=== PATIENT | female | born 1975 | race Caucasian/White ===

== ENCOUNTER 2019-07-02 10:34 | Outpatient (CLI) | payer OTHER, SELFPAY ==
--- NOTE | 2019-07-02 10:41 | XR_ITS ---
WS: [id number] Left knee, 2 views, 07/02/2019 Clinical Data: OBESITY/KNEE PAIN Comparison: None. Findings: No fractures or dislocations are seen. The joint spaces are normal. The patella is intact. The soft t issues are unremarkable. There is a posterior superior spur of the patella XR/XR knee LT 1-2V 14932 Impression: Moderate osteoarthritis of the posterior patella.
== END 2019-07-02 10:35 | disposition home or self-care (01) ==
LOC: RAD 10:36
PROVIDERS: Family Provider Nurse Practitioner; PCP Nurse Practitioner; Visit Provider Dermatology Procedural Dermatology
DX: Z02.71 Encounter for disability determination (principal); M25.562 Pain in left knee; M17.12 Unilateral primary osteoarthritis, left knee; J44.9 Chronic obstructive pulmonary disease, unspecified; E11.9 Type 2 diabetes mellitus without complications; I10 Essential (primary) hypertension; E66.01 Morbid (severe) obesity due to excess calories
CPT/HCPCS: 73560; 94060; J7611

== ENCOUNTER 2019-10-05 10:27 | Emergency (ER) | payer MEDICAID, SELFPAY ==
[2019-10-05 10:45] VITALS: BP 144/100; PULSE 78; RESP 22; RESP 26; O2SAT 97; O2SAT 98; BMI 55.4
--- NOTE | 2019-10-05 10:52 | XR_ITS ---
WS: [id number] XR chest 1V portable [id number] REASON FOR EXAM: dyspnea/cough FINDINGS: The cardiac silhouette is not enlarged. The lung barnett show chronic interstitial reaction similar to previous exam of June 13, 2018. No definite pneumonia, pleural effusion, pulmonary edema, or pneumothorax. The hilum and apices are normal. No osseous abnormalities. There is scattered granulomas throughout both lung barnett but these have not changed. XR/XR chest 1V portable [id number] IMPRESSION: Interstitial reaction both lung barnett no acute findings.
--- NOTE | 2019-10-05 10:54 | ED_ITS ---
HPI - SOB/Dyspnea General: Chief Complaint: Shortness of Breath/Dyspnea Stated Complaint: SOB Time Seen by Provider: 10/05/19 10:42 History of Present Illness: HPI Narrative: 3-year-old female comes to clinic shortness of breath last 3 to 4 days she had a subjective fever she is laying down makes it worse and exertion makes it worse. She has a semi-productive cough which is chronic for her. She usually on 3 L/min by nasal cannula supposed to be on 24 hours a day but she tells me she only uses it at night she has continued to do so she is been using her nebulizers at home pretty much every 4 hours whenever she is awake usually she is on once or twice a day at most. She client states she has continued nausea that is been an ongoing weir for her she has no vomiting or diarrhea. MD elicited complaint: shortness of breath Pertinent past history: asthma and congestive heart failure Onset (ago): day(s) Exacerbating factors: exertion and movement Relieving factors: oxygen and rest Associated symptoms: Reports no associated symptoms; Deny abdominal pain, chest pain, fever(s), nausea, orthopnea or vomiting Treatment prior to arrival: oxygen Review of Systems Const: Denies: fever(s), chills, body aches, change in appetite, fatigue or malaise ENMT: Denies: throat pain, ear or mastoid pain, nasal discharge or nasal congestion Card: Denies: chest pain, edema, dyspnea on exertion or orthopnea Resp: Denies: dyspnea, productive cough or non-productive cough GI: Denies: abdominal pain, nausea, vomiting, hematemesis, coffee ground emesis, diarrhea, constipation, bloating, hematochezia or melena : Denies: flank pain, difficulty voiding, dysuria, urinary frequency or urinary urgency Skin/Breast: Denies: rash or pruritus PFS ED PFSH: Social History (Updated 05/07/19 @ 07:48 by Poornima Arciniega MA) Smoking and tobacco status: current every day smoker Physical Exam Const: COMMON NORMALS: no acute distress GENERAL APPEARANCE: cooperative and comfortable ORIENTATION/CONSCIOUSNESS: Yes awake, Yes oriented to person, Yes oriented to place and Yes oriented to time HENMT: COMMON NORMALS: normocephalic, atraumatic, hearing grossly normal bilaterally, external ears normal, EAC's normal, TM's normal bilaterally, Normal nasal mucous membranes and turbinates present, moist oral mucous membranes and oropharynx normal HEAD & SCALP: normocephalic and atraumatic NOSE: Normal nasal mucous membranes and turbinates present EXTERNAL EAR: Yes external ears normal EXTERNAL AUDITORY CANAL: EAC's normal TYMPANIC MEMBRANE: TM's normal bilaterally Eye: COMMON NORMALS: Equal, round and reactive pupils present, EOMs intact bilaterally, conjunctivae normal and no scleral icterus CONJUNCTIVA: Yes conjunctivae normal PUPIL: Yes Equal, round and reactive pupils present Neck/C-Spine: COMMON NORMALS: full ROM, no lymphadenopathy, supple and no JVD Lymph: LYMPHATIC: no lymphadenopathy noted and no lymphedema noted Resp: COMMON NORMALS: normal respiratory effort, No retractions and No use of accessory muscles AUSCULTATION: wheezes expiratory wheezes and lower bilaterally Cardio: COMMON NORMALS: no JVD, regular rate, regular rhythm and No murmurs present (Cardio) RATE: regular rate RHYTHM: regular rhythm GI: COMMON NORMALS: Soft to palpation and No hepatosplenomegaly present AUSCULTATION: Yes normoactive bowel sounds PALPATION: Yes Soft to palpation, No Tenderness to palpation present (GI), No Guarding due to palpation present (GI) and Yes No hepatosplenomegaly present Extremity: COMMON NORMALS: normal to inspection, capillary refill normal, no clubbing, cyanosis or edema, no calf tenderness and no pedal edema Neuro: SENSORIUM/ORIENTATION: Yes oriented to person, Yes oriented to place and Yes oriented to time Skin: COMMON NORMALS: no rashes or lesions noted GENERAL SKIN EXAM: no rashes or lesions noted Course Vital Signs: Vital signs: Vital Signs Pulse Rate 79 10/05/19 12:15 Respiratory Rate 18 10/05/19 12:15 Blood Pressure 129/79 10/05/19 12:15 Pulse Oximetry 96 10/05/19 12:15 MDM - SOB/Dyspnea MDM Narrative: Medical decision making narrative: Findings with the patient she is improved after the nebulizer will discharge home Medrol Dosepak start Singulair and albuterol inhaler recheck if worsens or changes Lab Data: Labs: Lab Results 10/05/19 10/05/19 10/05/19 Range/Units 10:45 11:07 11:08 WBC 15.3 H (4.0-10.0) 10^3/ uL RBC 5.14 (4.1-5.3) 10^6/u L Hgb 13.3 (11.5-15.3) g/dL Hct 43.0 (37.0-47.0) % MCV 83.7 (81-99) fL MCH 25.9 L (28.0-34.0) pg MCHC 30.9 (30.0-36.0) g/dL RDW 16.2 H (12.1-15.1) % Plt Count 278 (130-400) 10^3/c mm MPV 12.5 H (7.4-10.4) fL Neut % (Auto) 77.6 % Lymph % (Auto) 11.4 % Crane % (Auto) 4.2 % Eos % (Auto) 5.1 % Baso % (Auto) 1.2 % Neut # (Auto) 11.9 H (1.8-7.7) 10^3/u L Lymph # (Auto) 1.7 (0.8-4.8) 10^3/u L Crane # (Auto) 0.7 (0.2-0.9) 10^3/u L Eos # (Auto) 0.8 (0.0-0.8) 10^3/u L Baso # (Auto) 0.2 H (0.0-0.1) 10^3/u L Nucleated RBC % (a uto) 0 % Nucleated RBCs # 0.0 /100WBC Specimen Type Arterial Sample Site Radial, left ABG pH 7.45 (7.35-7.45) ABG pCO2 47.4 H (35-45) mmHg ABG pO2 62.2 L (80.0-100.0) mmH g ABG HCO3 33.2 H (22-26) mmol/L ABG O2 Saturation 92.9 ABG Base Excess 8.0 H (-2.0-2.0) mmol/ L Flo Test Pos A-a O2 Gradient 79.2 H (5-10) mmHg Hematocrit 41.7 (37-47) % Hgb O2 Saturation 86.2 L (95-100) % Carboxyhemoglobin 6.4 (0.4-20.1) %THgb Methemoglobin 0.8 (0.4-1.5) % Total Hemoglobin 13.6 (12-16) g/dL Sodium 138.0 137 (131-143) mmol/L Potassium 4.4 4.4 (3.5-5.0) mmol/L Glucose 234.0 H 241 H (70-115) mg/dL Ionized Calcium 1.2 (1.1-1.4) mmol/L O2 Delivery Device Nc O2 Liters/Min 2.0 % FiO2 28.0 % [employer] Analyst ID cak Chloride 95 L (98-107) mmol/L Carbon Dioxide 29 (22-29) mmol/L Anion Gap 17.4 (5-19) BUN 10 (6-20) mg/dL Creatinine 0.6 (0.5-0.9) mg/dL GFR Calculation 108.1 (90-130) mL/min Calculated Osmolal ity 288 (285-295) mOsm/k g Calcium 9.3 (8.5-10.5) mg/dL Total Bilirubin 0.3 (0.15-1.2) mg/dL AST 23 (0-32) U/L ALT 23 (0-33) U/L Alkaline Phosphata se 98 (35-105) IU/L Total Protein 7.3 (6.6-8.7) g/dL Albumin 3.8 (3.5-5.2) g/dL Globulin 3.5 (1.3-4.6) g/dL Discharge Plan Discharge Patient Disposition: Home, Self-Care Clinical Impression: Asthma with exacerbation Condition: Stable Prescriptions: New Medrol (Bonilla) 4 mg tablets,dose pack See Rx Instructions .ROUTE .COMPLEX Qty: 21 RF: 0 Singulair 10 mg tablet 10 mg PO DAILY Qty: 30 RF: 0 albuterol sulfate 90 mcg/actuation HFA aerosol inhaler 2 inh INHALATION Q4H PRN (Reason: shortness of breath or wheezing) Qty: 18 RF: 1 No Action pantoprazole 40 mg tablet,delayed release (DR/EC) 40 mg PO QDAY RF: 0 (DME) oxygen-air delivery systems Device See Rx Instructions .ROUTE .MEDSUPPLY Qty: 1 RF: 0 amlodipine 10 mg tablet 10 mg PO QDAY 30 Days Qty: 30 RF: 2 carvedilol 12.5 mg tablet 12.5 mg PO BID 30 Days Qty: 60 RF: 2 spironolactone 25 mg tablet 12.5 mg PO QDAY 30 Days Qty: 15 RF: 2 insulin detemir U-100 100 unit/mL (3 mL) insulin pen 40 unit SUBCUT .COMPLEX 30 Days Qty: 15 RF: 2 fluticasone propion-salmeterol [Advair Diskus] 250-50 mcg/dose blister with device 1 inh INHALATION BID 30 Days Qty: 60 RF: 2 ondansetron HCl [Zofran] 4 mg tablet 4 mg PO Q8H 30 Days Qty: 90 RF: 2 sertraline 25 mg tablet 25 mg PO QDAY 30 Days Qty: 30 RF: 2 Discharge Orders: Discharge Order (Routine); Ordered 10/05/19 Ordered By: Noé Moody Referrals: Ct Cunningham FNP [Primary Care Provider] - Discharge Diet: Advance as tolerated Discharge Activity: Increase activity as tolerated Activity Restrictions/Additional Instructions: With your primary care doctor the next 2 to 3 days Discharge Date/Time: 10/05/19 12:15 Coding Level of Care Code ED [employer] for Chg Fwd Exam Comprehensive
[2019-10-05 11:03] LABS: Basophils # 0.2 10^3/uL (0.0-0.1); Basophils % 1.2 %; Eosinophils # 0.8 10^3/uL (0.0-0.8); Eosinophils % 5.1 %; Hemoglobin 13.3 g/dL (11.5-15.3); Lymphocytes # 1.7 10^3/uL (0.8-4.8); Lymphocytes % 11.4 %; Mean Corpuscular HGB Conc 30.9 g/dL (30.0-36.0); Mean Corpuscular Hemoglobin 25.9 pg (28.0-34.0); Mean Corpuscular Volume 83.7 fL (81-99); Mean Platelet Volume 12.5 fL (7.4-10.4); Monocytes # 0.7 10^3/uL (0.2-0.9); Monocytes % 4.2 %; Neutrophils # 11.9 10^3/uL (1.8-7.7); Neutrophils % 77.6 %; Nucleated Red Blood Cells % 0 %; Platelet Count 278 10^3/cmm (130-400); Red Blood Count 5.14 10^6/uL (4.1-5.3); Red Cell Distribution Width 16.2 % (12.1-15.1); White Blood Count 15.3 10^3/uL (4.0-10.0)
[2019-10-05 11:05] VITALS: PULSE 78; RESP 18; O2SAT 98
[2019-10-05] MEDS: ipratropium-albuterol 3 mL Neb INHALATION (11:07)
[2019-10-05 11:10] VITALS: PULSE 82
[2019-10-05 11:18] LABS: ABG PCO2 47.4 mmHg (35-45); ABG PH Result 7.45 (7.35-7.45); Alveolar-Arterial Oxygen Gradi 79.2 mmHg (5-10); Arterial Blood Gas Hematocrit 41.7 % (37-47); Blood Gas Allen Test Pos; Blood Gas Sample Site Radial, left; Blood Gas Sample Type Arterial; Carboxyhemoglobin 6.4 %THgb (0.4-20.1); HCO3 ABG 33.2 mmol/L (22-26); HGB O2 Sat 86.2 % (95-100); Ionized Calcium Level - ABG 1.2 mmol/L (1.1-1.4); Methemoglobin 0.8 % (0.4-1.5); Oxygen Device NC; Oxygen Saturation ABG 92.9; PO2 ABG 62.2 mmHg (80.0-100.0); Potassium Level - ABG 4.4 mmol/L (3.5-5.0); Total Hemoglobin 13.6 g/dL (12-16)
[2019-10-05 11:28] LABS: Alanine Aminotransferase 23 U/L (0-33); Albumin Level 3.8 g/dL (3.5-5.2); Alkaline Phosphatase 98 IU/L (35-105); Anion Gap 17.4 (5-19); Aspartate Amino Transferase 23 U/L (0-32); Blood Urea Nitrogen 10 mg/dL (6-20); Calcium 9.3 mg/dL (8.5-10.5); Carbon Dioxide 29 mmol/L (22-29); Chloride 95 mmol/L (98-107); Globulin 3.5 g/dL (1.3-4.6); Glomerular Filtration Rate 108.1 mL/min (90-130); Glucose 241 mg/dL (65-115); Osmolality Calculated 288 mOsm/kg (285-295); Potassium 4.4 mmol/L (3.5-5.1); Sodium 137 mmol/L (136-145); Total Bilirubin 0.3 mg/dL (0.15-1.2); Total Protein 7.3 g/dL (6.6-8.7)
[2019-10-05 11:31] VITALS: BP 126/73; PULSE 76; RESP 21; O2SAT 97
[2019-10-05 12:15] VITALS: BP 129/79; PULSE 79; RESP 18; O2SAT 96
== END 2019-10-05 12:15 | disposition home or self-care (01) ==
PROVIDERS: Emergency Provider Family Medicine; PCP Nurse Practitioner
DX: J45.901 Unspecified asthma with (acute) exacerbation (principal); Z79.4 Long term (current) use of insulin; F17.210 Nicotine dependence, cigarettes, uncomplicated
CPT/HCPCS: 12345; 36415; 36600; 71045; 80051; 80053; 82810; 83986; 85025; 94640; 96374; 96375; 99282; 99283; J2930

== ENCOUNTER → 2019-12-07 11:51 | Outpatient (BNVA) | payer MEDICAID, SELFPAY | PROVIDERS: PCP Nurse Practitioner; Visit Provider Family Medicine | DX: I10 Essential (primary) hypertension (principal); E11.9 Type 2 diabetes mellitus without complications; Z79.4 Long term (current) use of insulin | CPT/HCPCS: 80053; 80061; 82043; 83036; 85025 ==

== ENCOUNTER → 2019-12-08 16:07 | Outpatient (BNVA) | payer MEDICAID, SELFPAY | PROVIDERS: PCP Nurse Practitioner; Visit Provider Family Medicine | DX: D64.9 Anemia, unspecified (principal) | CPT/HCPCS: 82728; 83550 ==

== ENCOUNTER 2020-03-28 00:22 | Emergency (ER) | payer MEDICAID, SELFPAY ==
[2020-03-28 00:23] VITALS: BP 219/112; PULSE 99; RESP 18; TEMP 37.1; O2SAT 94; BMI 36.6
[2020-03-28 00:38] VITALS: PULSE 92; O2SAT 93
--- NOTE | 2020-03-28 00:43 | ED_ITS ---
HPI - Abdominal Pain General: Chief Complaint: Abdominal Pain Stated Complaint: ab pain, lower pelvic pain Time Seen by Provider: 03/28/20 00:37 Source: patient Mode of arrival: ambulatory Limitations: no limitations History of Present Illness: HPI narrative: Jennifer is a nice 44-year-old female who comes in complaining of right lower quadrant abdominal pain. She states the pain began last week and has been constant with occasional sharp pains. She states the pain also feels like a burning in nature at times. Denies any fevers or chills, she has no nausea or vomiting. Denies vaginal bleeding. Patient is unaware of any exacerbating or alleviating factors. Tonight the pain became much worse so she came to the hospital for evaluation. Patient denies having anything similar to this in the past. She has had her gallbladder out but denies appendectomy or hysterectomy. Associated Symptoms: Denies chills, coffee ground emesis, constipation, GI cramping, diarrhea, dysuria, fever(s), heartburn, hematochezia, hematuria, hematemesis, melena, nausea, syncope and vomiting Review of Systems Const: Denies: fever(s), chills, body aches, fatigue, malaise or diaphoresis Eyes: Denies: change in vision, blurry vision, photophobia, eye discomfort, eye discharge, eye redness or yellow eyes ENMT: Denies: throat pain, odynophagia, hoarseness, swelling of lips/tongue, ear or mastoid pain, ear discharge, change in hearing or nasal discharge Card: Denies: chest pain, palpitations, irregular heart rhythm, edema, lightheadedness, syncope, pre-syncope, dyspnea on exertion or orthopnea Resp: Denies: dyspnea, productive cough, non-productive cough, wheezing, hemoptysis or chest congestion GI: Reports: abdominal pain; Denies: nausea, vomiting, hematemesis, coffee ground emesis, heartburn, diarrhea, constipation, GI cramping, hematochezia or melena : Denies: flank pain, dysuria, urinary frequency, urinary urgency or hematuria Musc: Denies: neck pain, back pain, extremity pain, extremity swelling, joint pain, joint swelling, joint redness, joint warmth or joint stiffness Skin/Breast: Denies: rash, pruritus, erythema, skin pain or skin tenderness Neuro: Denies: headache(s), numbness in extremities, weakness in extremities, sensory changes, lack of coordination, difficulty walking, dizziness, vertigo, confusion, Slurred speech present or seizure-like activity Gorge/Lymph: Denies: easy bruising, easy bleeding, petechiae, purpura or enlarged lymph nodes All/Imm: Denies: urticaria, throat swelling, tongue swelling, facial swelling or acute wheezing PFSH ED PFSH: Medical History Anxiety and depression Chronic GERD COPD (chronic obstructive pulmonary disease) Essential hypertension Mass of adrenal gland Type 2 diabetes mellitus, with long-term current use of insulin Surgical History Hx of cholecystectomy Family History Other CAD (coronary artery disease) Social History Smoking and tobacco status: current every day smoker cigarettes Packs smoked per day: 0.75 Physical Exam Const: COMMON NORMALS: no acute distress, patient oriented x3, no limitations and alert GENERAL APPEARANCE: cooperative HENMT: COMMON NORMALS: normocephalic, atraumatic, external ears normal, EAC's normal and Normal external nose present HEAD & SCALP: normal to inspection, normocephalic and atraumatic FACE & SINUS: normal facial exam and face symmetric NOSE: Normal external nose present and Normal nares present EXTERNAL EAR: Yes external ears normal EXTERNAL AUDITORY CANAL: EAC's normal MOUTH: Normal oral and palatal mucosa present, lip normal and tongue normal Eye: COMMON NORMALS: Equal, round and reactive pupils present and conjunctivae normal GENERAL EYE: appearance normal, both eyes and all related structures ALIGNMENT: Yes alignment normal PERIORBITAL: periorbital findings normal EYELID: eyelids normal CONJUNCTIVA: Yes conjunctivae normal SCLERA: sclerae normal PUPIL: Yes Equal, round and reactive pupils present Neck/C-Spine: COMMON NORMALS: full ROM, no lymphadenopathy, supple, no meningeal signs and no JVD GENERAL: Yes normal visual inspection and Yes trachea midline Chest: COMMONS NORMALS: normal inspection of the chest and normal palpation of entire chest wall Resp: COMMON NORMALS: normal respiratory effort, No retractions, No use of accessory muscles and clear to auscultation bilaterally EFFORT & INSPECTION: Yes able to speak in complete sentences and Yes symmetric chest movement AUSCULTATION: clear to auscultation bilaterally, no crackles, no rales, no rhonchi and no wheezes Cardio: COMMON NORMALS: no JVD, regular rate, regular rhythm, S1 normal heart sound present and S2 normal heart sound present RATE: regular rate RHYTHM: regular rhythm HEART SOUNDS: S1 normal heart sound present, S2 normal heart sound present, no click, no gallops, no murmurs and no rubs GI: COMMON NORMALS: Soft to palpation and No hepatosplenomegaly present PALPATION: Yes Soft to palpation, No Tenderness to palpation present (GI), No Guarding due to palpation present (GI), No Rigid due to palpation, Yes No hepatosplenomegaly present, No Hernia present, No Palpable mass present and No Pulsatile mass present : COMMON NORMALS: Yes no CVA tenderness BLADDER/KIDNEY EXAM: Yes no CVA tenderness EXTERNAL FEMALE EXAM: No Hernia present Back/Pelvis: COMMON NORMALS: no CVA tenderness, thoracic and lumbar spine normal to inspection, no thoracic nor lumbar tenderness and thoraco-lumbar ROM normal Extremity: COMMON NORMALS: normal to inspection, full ROM, capillary refill normal, no joint enlargement, no clubbing, cyanosis or edema and no calf tenderness Neuro: COMMON NORMALS: patient oriented x3, CN's II-XII intact bilaterally, moves all extremities, no focal motor deficits and no sensory deficits noted SENSORIUM/ORIENTATION: Yes alert MENINGEAL SIGNS: Yes no meningeal signs SPEECH: speech normal Psych: COMMON NORMALS: mental status grossly normal, Normal thought process present, cooperative, normal affect, speech normal and activity/motor behavior normal SPEECH: Yes normal speech THOUGHT PROCESS: Normal thought process present Skin: COMMON NORMALS: no rashes or lesions noted, turgor normal, no jaundice, no petechiae and no mottling GENERAL SKIN EXAM: no rashes or lesions noted and turgor normal Course Vital Signs: Vital signs: Vital Signs Temperature 98.7 F 03/28/20 00:23 Pulse Rate 91 03/28/20 01:51 Respiratory Rate 18 03/28/20 00:23 Blood Pressure 141/97 03/28/20 01:51 Pulse Oximetry 97 03/28/20 01:51 MDM - Abdominal Pain MDM Narrative: Medical decision making narrative: 0216 -patient symptoms have spontaneously resolved even before given morphine. She has declined the morphine. Patient's CAT scan is unremarkable. She declines any further evaluation and care. I have suggested pelvic exam as her pain is low enough that a pelvic/gynecologic pathology could be present but she refuses. The patient's ride is here and waiting on her. The patient is adamant she wants to go. I have advised her that developing appendicitis could be a cause for her pain and she needs to return if her symptoms do not resolve within the next 24 hours but at this time being 3 days of constant pain I doubt that appendicitis will be the cause. Nonetheless the patient has been advised to return and return earlier if her symptoms change or worsen. Patient verbalized understanding and denied having any other questions or concerns. Differential Diagnosis: Differential diagnosis abdominal pain: Likely abdo zara pain, acute appendicitis, calculus of kidney, constipation, diverticulitis, gastroenteritis, pancreatitis and small bowel obstruction Medical Records: Attestation: I reviewed the patient's medical records. Lab Data: Attestation: I reviewed the patient's lab results. Labs: Lab Results 03/28/20 03/28/20 03/28/20 Range/Units 00:40 00:40 00:40 WBC 14.1 H (4.0-10.0) 10^3/ uL RBC 5.36 H (4.1-5.3) 10^6/u L Hgb 13.9 (11.5-15.3) g/dL Hct 44.9 (37.0-47.0) % MCV 83.8 (81-99) fL MCH 25.9 L (28.0-34.0) pg MCHC 31.0 (30.0-36.0) g/dL RDW 14.9 (12.1-15.1) % Plt Count 337 (130-400) 10^3/c mm MPV 9.6 (7.4-10.4) fL Neut % (Auto) 64.8 % Lymph % (Auto) 21.4 % [place] % (Auto) 5.3 % Eos % (Auto) 6.8 % Baso % (Auto) 1.3 % Neut # (Auto) 9.12 H (1.8-7.7) 10^3/u L Lymph # (Auto) 3.0 (0.8-4.8) 10^3/u L [place] # (Auto) 0.8 (0.2-0.9) 10^3/u L Eos # (Auto) 1.0 H (0.0-0.8) 10^3/u L Baso # (Auto) 0.2 H (0.0-0.1) 10^3/u L Nucleated RBC % (a uto) 0 % Nucleated RBCs # 0.0 /100WBC Sodium 138 (136-145) mmol/L Potassium 4.2 (3.5-5.1) mmol/L Chloride 98 (98-107) mmol/L Carbon Dioxide 29 (22-29) mmol/L Anion Gap 15.2 (5-19) BUN 11 (6-20) mg/dL Creatinine 0.8 (0.5-0.9) mg/dL GFR Calculation 77.2 L (90-130) mL/min Glucose 253 H (65-115) mg/dL Calculated Osmolal ity 294 (285-295) mOsm/k g Calcium 9.3 (8.5-10.5) mg/dL Total Bilirubin 0.2 (0.15-1.2) mg/dL AST 16 (0-32) U/L ALT 21 (0-33) U/L Alkaline Phosphata se 92 (35-105) IU/L Total Protein 7.0 (6.6-8.7) g/dL Albumin 3.8 (3.5-5.2) g/dL Globulin 3.2 (1.3-4.6) g/dL Lipase 35 (13-60) U/L HCG, Qual Negative (Negative) Urine Color (Yellow) Urine Appearance (CLEAR) Urine pH (5-7) Ur Specific Gravit y (1.005-1.030) Urine Protein (Negative) Urine Glucose (UA) (Normal) Urine Ketones (Negative) Urine Blood (Negative) Urine Nitrate (Negative) Urine Bilirubin (Negative) Urine Urobilinogen (Negative) mg/dL Ur Leukocyte Shaila ase (Negative) 03/28/20 Range/Units 01:45 WBC (4.0-10.0) 10^3/ uL RBC (4.1-5.3) 10^6/u L Hgb (11.5-15.3) g/dL Hct (37.0-47.0) % MCV (81-99) fL MCH (28.0-34.0) pg MCHC (30.0-36.0) g/dL RDW (12.1-15.1) % Plt Count (130-400) 10^3/c mm MPV (7.4-10.4) fL Neut % (Auto) % Lymph % (Auto) % [place] % (Auto) % Eos % (Auto) % Baso % (Auto) % Neut # (Auto) (1.8-7.7) 10^3/u L Lymph # (Auto) (0.8-4.8) 10^3/u L [place] # (Auto) (0.2-0.9) 10^3/u L Eos # (Auto) (0.0-0.8) 10^3/u L Baso # (Auto) (0.0-0.1) 10^3/u L Nucleated RBC % (a uto) % Nucleated RBCs # /100WBC Sodium (136-145) mmol/L Potassium (3.5-5.1) mmol/L Chloride (98-107) mmol/L Carbon Dioxide (22-29) mmol/L Anion Gap (5-19) BUN (6-20) mg/dL Creatinine (0.5-0.9) mg/dL GFR Calculation (90-130) mL/min Glucose (65-115) mg/dL Calculated Osmolal ity (285-295) mOsm/k g Calcium (8.5-10.5) mg/dL Total Bilirubin (0.15-1.2) mg/dL AST (0-32) U/L ALT (0-33) U/L Alkaline Phosphata se (35-105) IU/L Total Protein (6.6-8.7) g/dL Albumin (3.5-5.2) g/dL Globulin (1.3-4.6) g/dL Lipase (13-60) U/L HCG, Qual (Negative) Urine Color Yellow (Yellow) Urine Appearance Clear (CLEAR) Urine pH 6.5 (5-7) Ur Specific Gravit y 1.005 (1.005-1.030) Urine Protein Neg (Negative) Urine Glucose (UA) Trace H (Normal) Urine Ketones Negative (Negative) Urine Blood Neg (Negative) Urine Nitrate Negative (Negative) Urine Bilirubin Neg (Negative) Urine Urobilinogen Norm (Negative) mg/dL Ur Leukocyte Shaila ase Negative (Negative) Imaging Data ^: CT Abd/Pel: Radiologist's impression: [facility] [address] [place] [address] CT Scan Report Signed Patient: Jennifer Dumont #: [id number] : 1975Acct#:[id number] Age/Sex: 44 / FADM Date: 03/28/20 Loc: ERRoom/Bed: Attending Dr: Ordering Provider/Ordering MD: Rut Ignacio DO Date of Service: 03/28/20 Procedure(s): CT abdomen pelvis w con* [id number] Accession Number(s): [id number] Report Number: [id number] PROCEDURE INFORMATION: Exam: CT Abdomen And Pelvis With Contrast Exam date and time: 03/28/2020 12:45 AM Age: 44 years old Clinical indication: Abdominal pain; Localized; Lower; Prior surgery; Surgery date: 6+ months; Surgery type: Gb TECHNIQUE: Imaging protocol: Computed tomography of the abdomen and pelvis with intravenous contrast. Radiation optimization: All CT scans at this facility use at least one of these dose optimization techniques: automated exposure control; mA and/or kV adjustment per patient size (includes targeted exams where dose is matched to clinical indication); or iterative reconstruction. Contrast material: OMNI 300; Contrast volume: 95 ml; Contrast route: INTRAVENOUS (IV); COMPARISON: CT Abdomen, 10/13/2018. RADIATION DOSE METRICS: Total DLP (mGy-cm): 1751.33 FINDINGS: Lungs: The lung bases are clear. Mediastinal space: There may be some mucosal/wall thickening involving the lower esophagus. This is nonspecific, but could represent evidence for esophagitis. Please correlate clinically. Liver: There is fatty infiltration of the liver. The liver appears somewhat enlarged, with right lobe length of about 25 cm. No definite/significant focal hepatic abnormality. Gallbladder and bile ducts: Reportedly there has been prior cholecystectomy, no significant biliary tree dilation. Pancreas: Unremarkable. Spleen: Unremarkable. Adrenal glands: There is a 22 x 16 mm nodule in the right adrenal gland. There is a 23 x 19 mm nodule in the left adrenal gland. Statistically, these are most likely benign adenomas. In addition, there are not significantly changed from the comparison exam. On that noncontrast exam, they measured essentially water attenuation. Kidneys and ureters: Likely benign cyst extends from the lower pole of each kidney, 4 x 3 cm on the right, 1 cm on the left. No hydronephrosis of either kidney. No visible ureteral calculus. Stomach and bowel: There are no CT findings to strongly suggest diverticulitis. Appendix: The appendix is visualized and appears normal. Intraperitoneal space: No free air, ascites, or bowel distention. Vasculature: No evidence for abdominal aortic aneurysm. Lymph nodes: No retroperitoneal adenopathy. Urinary bladder: Unremarkable as visualized. Reproductive: No definite abnormal ovarian/adnexal cyst or mass by CT. Bones/joints: No significant acute finding. Soft tissues: No significant acute finding. CT/CT abdomen pelvis w con* [id number] IMPRESSION: 1. Normal appendix. 2. No free air or bowel distention. 3. No CT findings to strongly suggest diverticulitis. 4. Possibly some thickening of the lower esophagus, see above discussion. 5. Other findings discussed above. COMMENTS: Consistent with the [employer]'s Incidental Findings Committee white paper (J Am Lena Radiol 2018): Any incidental renal lesion less than 1 cm or classified as too small to characterize, or any incidental cystic renal lesion characterized as simple-appearing, is likely benign. No follow-up imaging is recommended for these lesions per consensus recommendations based on imaging criteria. Radiation Dose CTDIVOL = (mGy): DLP = 1751.33 (mGy-cm) Dictated By:Gregory Mclean MD Signed By:Gregory Mclean MDSigned Date/Time:03/28/20143 DD/ 2 Discharge Plan Discharge Patient Disposition: Home Clinical Impression: Abdominal pain Qualifiers: Abdominal location: right lower quadrant Qualified Code(s): R10.31 - Right lower quadrant pain Condition: Stable Prescriptions: No Action (DME) oxygen-air delivery systems Device See Rx Instructions .ROUTE .MEDSUPPLY Qty: 1 RF: 0 pantoprazole 40 mg tablet,delayed release (DR/EC) 40 mg PO QDAY Qty: 30 RF: 0 fluticasone propion-salmeterol [Advair Diskus] 250-50 mcg/dose blister with device 1 inh INHALATION BID Qty: 60 RF: 0 ibuprofen 800 mg tablet 800 mg PO TID PRN (Reason: pain) Qty: 10 RF: 0 amoxicillin-pot clavulanate [Augmentin] 875-125 mg tablet 1 tab PO BID 10 Days Qty: 20 RF: 0 fluticasone propion-salmeterol [Advair Diskus] 250-50 mcg/dose blister with device 1 inh INHALATION BID 30 Days Qty: 60 RF: 2 ondansetron HCl [Zofran] 4 mg tablet 4 mg PO Q8H 30 Days Qty: 90 RF: 2 amlodipine 10 mg tablet 10 mg PO QDAY 30 Days Qty: 30 RF: 0 carvedilol 12.5 mg tablet 12.5 mg PO BID 30 Days Qty: 60 RF: 0 spironolactone 25 mg tablet 12.5 mg PO QDAY 30 Days Qty: 15 RF: 0 sertraline 25 mg tablet 25 mg PO QDAY 30 Days Qty: 30 RF: 0 insulin detemir U-100 100 unit/mL (3 mL) insulin pen 40 unit SUBCUT .COMPLEX 30 Days Qty: 15 RF: 0 metformin 500 mg tablet 500 mg PO DAILY Qty: 30 RF: 0 atorvastatin [Lipitor] 10 mg tablet 10 mg PO DAILY Qty: 45 RF: 0 albuterol sulfate 90 mcg/actuation HFA aerosol inhaler 2 inh INHALATION Q4H PRN (Reason: shortness of breath or wheezing) Qty: 18 RF: 0 Discharge Orders: Discharge ED (Routine); Ordered 03/28/20 Ordered By: Rut Ignacio Referrals: Miriam Martínez DO [Primary Care Provider] - 1-3 days Discharge Diet: Advance as tolerated and Clear Liquid Discharge Activity: Increase activity as tolerated Patient Instructions: Abdominal Pain (ED) Activity Restrictions/Additional Instructions: Please return to the ER immediately for any of the signs or symptoms listed on your discharge instruction sheets, worsening/changing of your symptoms, you are not getting better as quickly as expected, or for ANY other cause or concerns. You have declined any further examination here. If your symptoms worsen or you change your mind in any way please return to the ER immediately for recheck. If you are having pain for more than another 24 hours please return to the ER for recheck as developing appendicitis still could be a cause for your pain. Stand Alone Forms: Work/School Release Coding Level of Care Code ED Transplant Registered Nurse for Chg Fwd Exam Comprehensive
[2020-03-28 00:47] LABS: Basophils # 0.2 10^3/uL (0.0-0.1); Basophils % 1.3 %; Eosinophils % 6.8 %; Hematocrit 44.9 % (37.0-47.0); Hemoglobin 13.9 g/dL (11.5-15.3); Lymphocytes % 21.4 %; Mean Corpuscular Hemoglobin 25.9 pg (28.0-34.0); Mean Corpuscular Volume 83.8 fL (81-99); Mean Platelet Volume 9.6 fL (7.4-10.4); Monocytes # 0.8 10^3/uL (0.2-0.9); Monocytes % 5.3 %; Neutrophils # 9.12 10^3/uL (1.8-7.7); Neutrophils % 64.8 %; Nucleated Red Blood Cells % 0 %; Platelet Count 337 10^3/cmm (130-400); Red Blood Count 5.36 10^6/uL (4.1-5.3); Red Cell Distribution Width 14.9 % (12.1-15.1); White Blood Count 14.1 10^3/uL (4.0-10.0)
[2020-03-28 00:57] LABS: HCG, Serum Qual Negative (Negative)
[2020-03-28] MEDS: iohexol 300 mg/mL 100 mL Btl IV (01:05)
[2020-03-28 01:06] LABS: Alanine Aminotransferase 21 U/L (0-33); Albumin Level 3.8 g/dL (3.5-5.2); Alkaline Phosphatase 92 IU/L (35-105); Anion Gap 15.2 (5-19); Aspartate Amino Transferase 16 U/L (0-32); Blood Urea Nitrogen 11 mg/dL (6-20); Calcium 9.3 mg/dL (8.5-10.5); Carbon Dioxide 29 mmol/L (22-29); Chloride 98 mmol/L (98-107); Globulin 3.2 g/dL (1.3-4.6); Glomerular Filtration Rate 77.2 mL/min (90-130); Glucose 253 mg/dL (65-115); Lipase 35 U/L (13-60); Osmolality Calculated 294 mOsm/kg (285-295); Potassium 4.2 mmol/L (3.5-5.1); Sodium 138 mmol/L (136-145); Total Bilirubin 0.2 mg/dL (0.15-1.2)
[2020-03-28] MEDS: sodium chloride 0.9% 1,000 ML 999 ML IV (01:15)
[2020-03-28] MEDS: ondansetron 2 mg/ML SDV 2 mL 4 MG IVP (01:16)
[2020-03-28 01:49] LABS: Add Urine Microscopic? NO
[2020-03-28 01:51] VITALS: BP 141/97; PULSE 91; O2SAT 97
[2020-03-28 01:56] LABS: Bilirubin Urine Neg (Negative); Blood Urine Neg (Negative); Glucose Urine UA Trace (Normal); Ketones Urine Negative (Negative); Leukocyte Esterase Urine Negative (Negative); Nitrate Urine Negative (Negative); Protein Urine Neg (Negative); Specific Gravity, Urine 1.005 (1.005-1.030); Urine Appearance Clear (CLEAR); Urine Color Yellow (Yellow); Urobilinogen Urine Norm (Negative); pH Urine 6.5 (5-7)
== END 2020-03-28 02:36 | disposition home or self-care (01) ==
PROVIDERS: Emergency Provider Emergency Medicine; PCP Family Medicine
DX: R10.31 Right lower quadrant pain (principal); Z79.4 Long term (current) use of insulin; J44.9 Chronic obstructive pulmonary disease, unspecified; I10 Essential (primary) hypertension; E11.9 Type 2 diabetes mellitus without complications; F17.210 Nicotine dependence, cigarettes, uncomplicated
CPT/HCPCS: 12345; 74177; 80053; 81003; 83690; 84703; 85025; 96361; 96374; 99283; J2405; J7030; Q9967

== ENCOUNTER 2021-08-13 06:05 | Emergency (ER) | payer MEDICAID, SELFPAY ==
[2021-08-13 06:39] VITALS: BMI 53.5
[2021-08-13 06:42] VITALS: BP 156/96; PULSE 96; RESP 17; TEMP 36.7; O2SAT 92
--- NOTE | 2021-08-13 06:52 | XRR_ITS ---
PROCEDURE INFORMATION: Exam: XR Abdomen Exam date and time: 08/13/2021 7:02 AM Age: 45 years old Clinical indication: Constipation and nausea; Prior surgery; Surgery date: 6+ months; Surgery type: Gb; Patient HX: Nausea, constipation x 1 week TECHNIQUE: Imaging protocol: XR of the abdomen. Views: Frontal supine view of the abdomen. 1 View. COMPARISON: CT abdomen pelvis w con* [id number] 03/28/2020 12:54 AM FINDINGS: Gastrointestinal tract: No significant small bowel distention. Large amount of stool throughout the colon suggestive of constipation. Bones/joints: Multilevel spondylosis and degenerative bony changes. XR/XR KUB portable [id number] IMPRESSION: Large amount of stool throughout the colon suggestive of constipation.
--- NOTE | 2021-08-13 06:58 | W.ED.ABDPA2 ---
HPI - Abdominal Pain General: Chief Complaint: Abdominal Pain Stated Complaint: constipation Time Seen by Provider: 08/13/21 06:15 Source: patient Mode of arrival: ambulatory Limitations: no limitations History of Present Illness: 45-year-old female presents emergency room complaining of constipation. She states has not had a bowel movement for a week. She took an [id number] generic stool softener yesterday and drank some prune juice states she did not really get any relief she denies hematochezia melena hematemesis coffee-ground emesis no fever sweats chills nausea vomiting or diarrhea no dysuria urgency or frequency some moderate abdominal cramping and discomfort but no sharp pain. MD elicited complaint: abdominal pain Pertinent past history: constipation Onset (ago): week(s) (1) Pain Consistency: constant Location: Diffuse Severity: moderate Quality: cramping Radiation: none Migration to: no migration Exacerbating factors: nothing Relieving factors: nothing Associated Symptoms: Reports poor appetite; Denies anorexia, belching, bloating, change in bowel habits, change in stool character, chills, coffee ground emesis, constipation, GI cramping, dyspepsia, dysuria, excessive flatus, fever(s), heartburn, hematochezia, hematuria, hematemesis, fecal incontinence, loose stools, melena, nausea, syncope and vomiting Review of Systems Const: Denies: fever(s) or chills ENMT: Denies: throat pain, ear or mastoid pain, nasal discharge or nasal congestion Card: Denies: syncope Resp: Denies: dyspnea, productive cough or non-productive cough GI: Denies: nausea, vomiting, hematemesis, coffee ground emesis, heartburn, constipation, bloating, GI cramping, belching, excessive flatus, fecal incontinence, change in bowel habits, change in stool character, hematochezia or melena : Denies: dysuria or hematuria Skin/Breast: Denies: rash or pruritus PFSH ED PFSH: Medical History Anxiety and depression Chronic GERD COPD (chronic obstructive pulmonary disease) Essential hypertension Mass of adrenal gland Type 2 diabetes mellitus, with long-term current use of insulin Surgical History Hx of cholecystectomy Family History Other CAD (coronary artery disease) Social History Smoking and tobacco status: current every day smoker cigarettes Packs smoked per day: 0.75 Physical Exam Const: COMMON NORMALS: no acute distress GENERAL APPEARANCE: cooperative and comfortable NUTRITIONAL APPEARANCE: obese morbidly obese ORIENTATION/CONSCIOUSNESS: Yes awake, Yes oriented to person, Yes oriented to place and Yes oriented to time HENMT: COMMON NORMALS: normocephalic, atraumatic and hearing grossly normal bilaterally HEAD & SCALP: normocephalic and atraumatic Neck/C-Spine: COMMON NORMALS: no JVD Resp: COMMON NORMALS: normal respiratory effort, No retractions, No use of accessory muscles and clear to auscultation bilaterally AUSCULTATION: clear to auscultation bilaterally Cardio: COMMON NORMALS: no JVD, regular rate, regular rhythm and No murmurs present (Cardio) RATE: regular rate RHYTHM: regular rhythm GI: COMMON NORMALS: Soft to palpation and No hepatosplenomegaly present AUSCULTATION: Yes normoactive bowel sounds PALPATION: Yes Soft to palpation, No Tenderness to palpation present (GI), No Guarding due to palpation present (GI) and Yes No hepatosplenomegaly present Extremity: COMMON NORMALS: normal to inspection, capillary refill normal, no clubbing, cyanosis or edema, no calf tenderness and no pedal edema Neuro: SENSORIUM/ORIENTATION: Yes oriented to person, Yes oriented to place and Yes oriented to time Skin: COMMON NORMALS: no rashes or lesions noted GENERAL SKIN EXAM: no rashes or lesions noted Course Vital Signs: Vital signs: Vital Signs Temperature 98.0 F 08/13/21 06:42 Pulse Rate 96 08/13/21 06:42 Respiratory Rate 17 08/13/21 06:42 Blood Pressure 156/96 08/13/21 06:42 Pulse Oximetry 92 08/13/21 06:42 MDM - Abdominal Pain Medical Decision Making KUB shows constipation. Abdominal exam mildly tender but no peritoneal signs. Discharge patient home with magnesium citrate. She had only used a single dose of stool softener some kind [id number] as well as some prune juice yesterday with no results. Recommend rest of laxative would be appropriate can follow-up with your primary care doctor if no improvement. Medical Records I reviewed the patient's medical records. Lab Data I reviewed the patient's lab results. Labs/Radiology: Radiology Impressions KUB X-Ray 08/13/21 06:52 IMPRESSION: Large amount of stool throughout the colon suggestive of constipation. Discharge Plan Discharge Patient Disposition: Home Clinical Impression: Constipation Condition: Stable Prescriptions: New magnesium citrate Solution 150 ml PO BID PRN (Reason: constipation) Qty: 296 0RF No Action (DME) oxygen-air delivery systems Device See Rx Instructions .ROUTE .MEDSUPPLY Qty: 1 0RF Rx Instructions: As directed: 3lpm pantoprazole 40 mg tablet,delayed release (DR/EC) 40 mg PO QDAY Qty: 30 0RF fluticasone propion-salmeterol [Advair Diskus] 250-50 mcg/dose blister with device 1 inh INHALATION BID Qty: 60 0RF ibuprofen 800 mg tablet 800 mg PO TID PRN (Reason: pain) Qty: 10 0RF amoxicillin-pot clavulanate [Augmentin] 875-125 mg tablet 1 tab PO BID 10 Days Qty: 20 0RF fluticasone propion-salmeterol [Advair Diskus] 250-50 mcg/dose blister with device 1 inh INHALATION BID 30 Days Qty: 60 2RF Rx Instructions: refilling in [facility] absence ondansetron HCl [Zofran] 4 mg tablet 4 mg PO Q8H 30 Days Qty: 90 2RF Rx Instructions: refilling in [facility] absence amlodipine 10 mg tablet 10 mg PO QDAY 30 Days Qty: 30 0RF carvedilol 12.5 mg tablet 12.5 mg PO BID 30 Days Qty: 60 0RF spironolactone 25 mg tablet 12.5 mg PO QDAY 30 Days Qty: 15 0RF sertraline 25 mg tablet 25 mg PO QDAY 30 Days Qty: 30 0RF insulin detemir U-100 100 unit/mL (3 mL) insulin pen 40 unit SUBCUT .COMPLEX 30 Days Qty: 15 0RF Rx Instructions: 40 units SUBCUT at bedtime; Please dispense needle tips as well metformin 500 mg tablet 500 mg PO DAILY Qty: 30 0RF atorvastatin [Lipitor] 10 mg tablet 10 mg PO DAILY Qty: 45 0RF albuterol sulfate 90 mcg/actuation HFA aerosol inhaler 2 inh INHALATION Q4H PRN (Reason: shortness of breath or wheezing) Qty: 18 0RF Discharge Orders: Discharge ED (Routine); Ordered 08/13/21 Ordered By: Noé Moody Referrals: Miriam Martínez DO [Primary Care Provider] - Patient Instructions: Opioid Safety Activity Restrictions/Additional Instructions: Repeat half bottle mag citrate every 6 hours until adequate results achieved and relief of symptoms. Coding Level of Care Code ED Groundskeeping Maintenance for Chg Fwd Exam Comprehensive
[2021-08-13 07:59] VITALS: BP 144/74; PULSE 80; RESP 18; TEMP 36.7; O2SAT 90
[2021-08-13 08:06] VITALS: BP 144/74; PULSE 80; RESP 18; TEMP 36.7; O2SAT 90
== END 2021-08-13 08:05 | disposition home or self-care (01) ==
PROVIDERS: Emergency Provider Family Medicine; PCP Family Medicine
DX: K59.00 Constipation, unspecified (principal); F17.210 Nicotine dependence, cigarettes, uncomplicated; Z79.4 Long term (current) use of insulin; Z79.84 Long term (current) use of oral hypoglycemic drugs; Z79.51 Long term (current) use of inhaled steroids
CPT/HCPCS: 74018; 99282

== ENCOUNTER 2022-01-14 11:30 | Inpatient (IN) | payer MEDICAID, SELFPAY ==
[2022-01-14] VITALS (9 sets, daily range): BP systolic 125–185; BP diastolic 59–101; PULSE 97–108; RESP 16–22; TEMP 36.4–37.3; O2SAT 87–96; BMI 53.6; BMI 52.8
--- NOTE | 2022-01-14 12:00 | CT_ITS ---
WS: [id number] CT ABDOMEN AND PELVIS WITH CONTRAST HISTORY: LEFT labial abscess. TECHNIQUE: Imaging performed of the abdomen and pelvis with IV contrast. Single phase imaging of the abdomen. Coronal and sagittal reformats are submitted. All CT scans at [facility] use at [facility] one of these dose optimization techniques: automated exposure control; mA and/or kV adjustment per patient size (includes targeted exams where dose is matched to clinical indication); or iterative re construction. IV CONTRAST: Omnipaque 350; 95 mL IV. Oral contrast: No DLP: 1897.23 mGy.cm COMPARISON: 03/28/2020 Lower thorax: Lung bases are clear. Heart is normal size. No hiatal hernia. Liver/biliary system: Markedly enlarged liver measures 24.8 cm in length. Diffuse hepatic steatosis. Normal appearance of the portal vein. No bile duct dilatation. Gallbladder: Status post cholecystectomy. Pancreas: Normal size pancreas and pancreatic duct. No adjacent inflammation. Spleen: Normal size spleen. No mass or infarct. Adrenal glands: Bilateral adrenal masses. Masses are well-circumscribed without increase in size sinc e 03/28/2020. RIGHT adrenal mass measures 2.7 x 1.7 cm. LEFT adrenal mass measures 2.4 x 2.0 cm. These are likely benign adenomas. Dedicated evaluation of 10/13/2018 demonstrated benign adenomas. Right kidney: Normal kidney. No obstruction. Cyst from the lower pole measures 5.5 x 4.7 cm. Left kidney: Normal. Aorta: Mild atherosclerosis with no aneurysm. Lymphadenopathy: None. Free fluid: None. GI tract: Normal appearance of the stomach and small bowel. Normal appendix. No colonic obstruction o r diverticulosis. Abdominal wall: Unremarkable abdominal wall. No hernia. Pelvis: Well-distended urinary bladder. No free fluid or adenopathy. Moderate amount of soft tissue i nflammation throughout the peritoneum, predominantly within the LEFT labial region as described. Ther e is soft tissue thickening but no well-defined collection. The area of inflammation extends from the anterior to posterior perineum. There are a few very small reactive lymph nodes within the inguinal region, LEFT greater than RIGHT. Bones: Unremarkable. CT/CT abdomen pelvis w con* [id number] IMPRESSION: 1. Extensive cellulitis and inflammatory changes within the LEFT perineum cent ered around the labia. No definite abscess is identified. 2. Bilateral benign adrenal adenomas. 3. Marked hepatomegaly and hepatic steatosis. 4. Prior cholecystectomy. 5. Normal appendix.
[2022-01-14 12:40] LABS: Basophils # 0.2 10^3/uL (0.0-0.1); Basophils % 0.8 %; Eosinophils # 0.2 10^3/uL (0.0-0.8); Eosinophils % 0.9 %; Hematocrit 49.1 % (37.0-47.0); Hemoglobin 15.3 g/dL (11.5-15.3); Lymphocytes # 1.4 10^3/uL (0.8-4.8); Lymphocytes % 5.7 %; Mean Corpuscular HGB Conc 31.2 g/dL (30.0-36.0); Mean Corpuscular Hemoglobin 25.8 pg (28.0-34.0); Mean Corpuscular Volume 82.9 fl (81-99); Mean Platelet Volume 9.9 fL (7.4-10.4); Monocytes # 1.4 10^3/uL (0.2-0.9); Monocytes % 6.1 %; Neutrophils # 20.11 10^3/uL (1.8-7.7); Neutrophils % 85.6 %; Nucleated Red Blood Cells % 0 %; Platelet Count 310 10^3/cmm (130-400); Red Blood Count 5.92 10^6/uL (4.1-5.3); White Blood Count 23.5 10^3/uL (4.0-10.0)
[2022-01-14] MEDS: iohexol 350 mg/mL 100 mL Btl IV (12:45)
[2022-01-14 13:02] LABS: Anion Gap 15.4 (5-19); Blood Urea Nitrogen 10 mg/dL (6-20); Calcium 9.6 mg/dL (8.5-10.5); Carbon Dioxide 28 mmol/L (22-29); Chloride 93 mmol/L (98-107); Glomerular Filtration Rate 89.3 mL/min (90-130); Glucose 445 mg/dL (65-115); Osmolality Calculated 292 mOsm/kg (285-295); Potassium 4.4 mmol/L (3.5-5.1); Sodium 132 mmol/L (136-145)
--- NOTE | 2022-01-14 13:24 | ED_ITS ---
HPI - Wound/Laceration General: Chief Complaint: Wound/Laceration Stated Complaint: Sent by ryne RODRÍGUEZ/angy Time Seen by Provider: 01/14/22 11:59 Source: patient Mode of arrival: ambulatory History of Present Illness: 46-year-old female with a history of diabetes mellitus. She was seen today by Dr. Alcantar at the [place] [facility] has a abscess in the left buttock on the left that is tracking down into the labia. It is reddened and inflamed does not have any drainage at all she did try to manipulate it unsuccessfully. She is having severe pain with it. On arrival she has difficult time walking. She has not had any measured fevers to this point. Insulin controlled diabetic blood sugars have been elevated Onset (ago): day(s) Location: genitals (Left buttock extending to the labia) Place: home Associated symptoms: Reports nausea and pain; Denies chills, fever(s), numbness, syncope or vomiting Review of Systems Const: Denies: fever(s), chills, fatigue or malaise ENMT: Denies: throat pain, ear or mastoid pain, nasal discharge or nasal congestion Card: Denies: chest pain, palpitations, irregular heart rhythm or syncope Resp: Denies: dyspnea, productive cough or non-productive cough GI: Reports: nausea; Denies: abdominal pain, vomiting or hematemesis : Denies: flank pain, difficulty voiding, dysuria, urinary frequency or urinary urgency Skin/Breast: Denies: rash or pruritus PFSH ED PFSH: Medical History Anxiety and depression BMI 50.0-59.9, adult Chronic GERD COPD (chronic obstructive pulmonary disease) has required oxygen in the past Diabetes mellitus, type II Essential hypertension 0 Mass of adrenal gland Surgical History Hx of cholecystectomy Family History Father Lung disease Family/Other Diabetes Mother , secondary to MVA in 40s No problems noted. Denies family history of Anesthesia complication Bleeding disorder Social History Smoking and tobacco status: current every day smoker cigarettes Packs smoked per day: 0.75 Years cigarettes smoked: 25 [ Other cigarette details: Half to full pack per day] Alcohol intake: current Alcohol intake frequency: other Alcohol use comment: Maybe once a month Substance/Drug Use: current Substance/Drug use frequency: other Substance/Drug use type: Marijuana Other substance/drug use details: 1-2 times per month Lives independently: Yes Physical Exam Const: GENERAL APPEARANCE: cooperative and comfortable ORIENTATION/CONSCIOUSNESS: Yes awake, Yes oriented to person, Yes oriented to place and Yes oriented to time HENMT: COMMON NORMALS: normocephalic, atraumatic and hearing grossly normal bilaterally HEAD & SCALP: normocephalic and atraumatic Resp: COMMON NORMALS: normal respiratory effort, No retractions, No use of accessory muscles and clear to auscultation bilaterally AUSCULTATION: clear to auscultation bilaterally Cardio: COMMON NORMALS: regular rate, regular rhythm and No murmurs present (Cardio) RATE: regular rate RHYTHM: regular rhythm GI: COMMON NORMALS: Soft to palpation and No hepatosplenomegaly present AUSCULTATION: Yes normoactive bowel sounds PALPATION: Yes Soft to palpation, No Tenderness to palpation present (GI), No Guarding due to palpation present (GI) and Yes No hepatosplenomegaly present : OTHER: Reddened erythematous lesion left labia. No open tracks or fistula noted no pointing of the wound. No active drainage Extremity: COMMON NORMALS: normal to inspection, capillary refill normal, no clubbing, cyanosis or edema, no calf tenderness and no pedal edema Neuro: SENSORIUM/ORIENTATION: Yes oriented to person, Yes oriented to place and Yes oriented to time Course Vital Signs: Vital signs: Vital Signs Temperature 98.1 F 01/18/22 04:00 Pulse Rate 72 01/18/22 04:00 Respiratory Rate 16 01/18/22 04:00 Blood Pressure 156/98 01/18/22 04:00 Pulse Oximetry 96 01/18/22 04:00 Oxygen Delivery Me thod 01/18/22 04:00 Oxygen Flow Rate 1.5 01/18/22 04:00 MDM - Wound/Laceration Medical Decision Making Cellulitis thank vancomycin started. Discussed with hospitalist, they will consult surgery. Medical Records I reviewed the patient's medical records. Lab Data I reviewed the patient's lab results. : 01/18/22 04:02 01/18/22 04:02 Radiology Impressions Abdomen/Pelvis CT 01/14/22 12:00 IMPRESSION: 1. Extensive cellulitis and inflammatory changes within the LEFT perineum centered around the labia. No definite abscess is identified. 2. Bilateral benign adrenal adenomas. 3. Marked hepatomegaly and hepatic steatosis. 4. Prior cholecystectomy. 5. Normal appendix. Laboratory Results WBC 23.5 10^3/uL (4.0-10.0) H 01/14/22 12:20 RBC 5.92 10^6/uL (4.1-5.3) H 01/14/22 12:20 Hgb 15.3 g/dL (11.5-15.3) 01/14/22 12:20 Hct 49.1 % (37.0-47.0) H 01/14/22 12:20 MCV 82.9 fl (81-99) 01/14/22 12:20 MCH 25.8 pg (28.0-34.0) L 01/14/22 12:20 MCHC 31.2 g/dL (30.0-36.0) 01/14/22 12:20 RDW 15.0 % (12.1-15.1) 01/14/22 12:20 Plt Count 310 10^3/cmm (130-400) 01/14/22 12:20 MPV 9.9 fL (7.4-10.4) 01/14/22 12:20 Neut % (Auto) 85.6 % 01/14/22 12:20 Lymph % (Auto) 5.7 % 01/14/22 12:20 [place] % (Auto) 6.1 % 01/14/22 12:20 Eos % (Auto) 0.9 % 01/14/22 12:20 Baso % (Auto) 0.8 % 01/14/22 12:20 Neut # (Auto) 20.11 10^3/uL (1.8-7.7) H 01/14/22 12:20 Lymph # (Auto) 1.4 10^3/uL (0.8-4.8) 01/14/22 12:20 [place] # (Auto) 1.4 10^3/uL (0.2-0.9) H 01/14/22 12:20 Eos # (Auto) 0.2 10^3/uL (0.0-0.8) 01/14/22 12:20 Baso # (Auto) 0.2 10^3/uL (0.0-0.1) H 01/14/22 12:20 Nucleated RBC % (auto) 0 % 01/14/22 12:20 Nucleated RBCs # 0.0 /100WBC 01/14/22 12:20 Sodium 132 mmol/L (136-145) L 01/14/22 12:20 Potassium 4.4 mmol/L (3.5-5.1) 01/14/22 12:20 Chloride 93 mmol/L (98-107) L 01/14/22 12:20 Carbon Dioxide 28 mmol/L (22-29) 01/14/22 12:20 Anion Gap 15.4 (5-19) 01/14/22 12:20 BUN 10 mg/dL (6-20) 01/14/22 12:20 Creatinine 0.7 mg/dL (0.5-0.9) 01/14/22 12:20 GFR Calculation 89.3 mL/min (90-130) L 01/14/22 12:20 Glucose 445 mg/dL (65-115) H 01/14/22 12:20 Calculated Osmolality 292 mOsm/kg (285-295) 01/14/22 12:20 Calcium 9.6 mg/dL (8.5-10.5) 01/14/22 12:20 Discharge Plan Discharge Patient Disposition: Admitted As Inpatient Admit Provider: Lety Awan Clinical Impression: Cellulitis of labia majora, Diabetes mellitus, type II, Essential hypertension, COPD (chronic obstructive pulmonary disease) Condition: Stable Coding Level of Care Code ED Clinical Office Technician for Chg Fwd Exam Detailed
[2022-01-14] MEDS: vancomycin 1,000 MG in sodium chloride 0.9% 250 ML 250 MG IV (13:53)
[2022-01-14] MEDS: ondansetron 2 mg/ML SDV 2 mL 4 MG IVP ×2 (13:54→16:34)
[2022-01-14] MEDS: morphine 4 mg/mL SDV 1 mL IVP ×2 (13:54→16:35)
[2022-01-14 14:12] LABS: Bilirubin Urine Neg (Negative); Blood Urine Neg (Negative); Glucose Urine UA 4+ (Normal); Ketones Urine 1+ (Negative); Nitrate Urine Negative (Negative); Protein Urine Neg (Negative); Specific Gravity, Urine 1.005 (1.005-1.030); Urine Appearance Clear (CLEAR); Urine Color Yellow (Yellow); Urobilinogen Urine Norm (Negative); pH Urine 5 (5-7)
[2022-01-14 14:13] LABS: Add Urine Culture? No; Add Urine Microscopic? YES; Bacteria Urine TRACE /hpf; Leukocyte Esterase Urine Trace (Negative); Squamous Epithelial Cell Urine 0-4 /hpf (0-5); WBC Urine RARE /hpf (0-5)
--- NOTE | 2022-01-14 17:58 | P.HP_ITS ---
Providers/Chief Complaint Admitting Physician: Lety Awan MD Primary Care Provider: CYNDI Casas Chief Complaint: Sent by UC, boil/angy History of Present Illness Jennifer Dumont is a 46 year old female who presented to urgent care clinic with complaint of pain and swelling in her labia. She first noticed a small bump maybe a centimeter in diameter on the left side of her buttock right at the crease where her leg meets her buttock. She admits that she picked at it and squeezed at it a little bit that night. She had had boils before and thought that is what was starting. Never had anything in this general region before. Previously was on her inner thigh and under her arm. On Friday she noticed that the area of swelling had started to extend forward towards her labia and was becoming a bit hard. It continued to seem to progress though slowly at fir st. On Friday evening she noticed quite significant pain. At that point in time the swelling and discomfort involved the distal portion of the labia only. This morning when she woke up at 430 her entire labia on the left side was swollen, very hard and extremely tender. At its worst her pain is been a 7 or an 8 out of 10. She finds it hard to get comfortable. She is still able to urinate. She had a bowel movement this morning that was large for her. She had been having issues with constipation for a while. She had some subjective fevers last night. She is chronically nauseated, may be a bit more today but no vomiting. The pain became so severe that she decided to come in and be seen. She was seen at urgent care by Dr. Alcantar and sent to the emergency room for further evaluation given concern for potential Ese's. In the emergency room CT scan of the abdomen and pelvis showed extensive cellulitis and inflammatory changes in the left perineum centered around the labia but no definite abscess was seen. No well-defined fluid collection identified nor is there a mention of any gas pockets. A few small reactive lymph nodes noted in the inguinal region left greater than right. Patient received vancomycin and hospitalist were consulted for further care. At the time of my evaluation pain is out of 5 out of 10. She has received a couple of doses of morphine without lasting improvement. History is obtained from her. She is a known diabetic. She has not been compliant with her diabetic medications simply because she does not always see a benefit to them that she can tell. Blood sugars in the emergency room were noted to be elevated at 455. Review of Systems Const: Reports: fever(s) (Subjective), chills and malaise; Denies: change in appetite Eyes: Denies: blurry vision ENMT: Reports: dental pain and dry mouth; Denies: throat pain Card: Denies: chest pain or orthopnea Resp: Reports: wheezing (Sometimes, last use of albuterol yesterday); Denies: dyspnea or productive cough GI: Reports: nausea and constipation; Denies: abdominal pain, vomiting or diarrhea : Reports: urinary frequency and other (Swollen very painful left labia); Denies: difficulty voiding Musc: Reports: extremity pain Skin/Breast: Reports: sores (Buttock progressing to labia) and dry skin Neuro: Reports: headache(s) and sensory changes; Denies: difficulty walking Psych: Reports: anxiety (Has panic attacks at times, none recently) Endo: Reports: polydipsia Gorge/Lymph: Denies: easy bruising or easy bleeding Medications/Allergies Home Medications Medication Instructions Recorded Confirmed Last Taken Type albuterol sulfate 90 mcg/actuation 2 inh inhalation Q4H PRN shortness 12/07/19 01/14/22 01/13/22 Rx aerosol inhaler of breath or wheezing #18 grams fluticasone 250 mcg-salmeterol 50 1 inh inhalation BID #60 ea 12/07/19 01/14/22 01/13/22 Rx mcg/dose blistr powdr for inhalation (Advair Diskus) pantoprazole 40 mg tablet,delayed 40 mg PO QDAY #30 tabs 12/07/19 01/14/22 Unknown Rx release acetaminophen-caffeine 500 mg-65 1 tab PO Q12H PRN Pain 01/14/22 01/14/22 01/14/22 History mg tablet carvedilol 12.5 mg tablet 12.5 mg PO BID PRN High blood 01/14/22 01/14/22 Unknown History pressure dapagliflozin 10 mg tablet 10 mg PO DAILY 01/14/22 01/14/22 Unknown History ([facility]) gabapentin 100 mg capsule 100 mg PO TID 01/14/22 01/14/22 01/13/22 History hydrochlorothiazide 25 mg tablet 25 mg PO DAILY PRN high blood 01/14/22 01/14/22 Unknown History pressure ibuprofen 200 mg tablet 800 mg PO BID PRN Pain 01/14/22 01/14/22 Unknown History metformin 500 mg tablet 500 mg PO BID 01/14/22 01/14/22 Unknown History montelukast 10 mg tablet 10 mg PO DAILY 01/14/22 01/14/22 Unknown History (Singulair) Allergies Allergy/AdvReac Type Severity Reaction Status Date / Time azithromycin Allergy ADR-Chest Verified 01/14/22 10:48 Pain prednisone Allergy ADR-Anxiety Verified 01/14/22 10:48 PFSH Acute PFSH: Medical History (Updated 01/14/22 @ 19:27 by Lety Awan MD) Anxiety and depression BMI 50.0-59.9, adult Chronic GERD COPD (chronic obstructive pulmonary disease) has required oxygen in the past Diabetes mellitus, type II Essential hypertension 0 Mass of adrenal gland Surgical History Hx of cholecystectomy Family History (Updated 01/14/22 @ 19:22 by Lety Awan MD) Father Lung disease Family/Other Diabetes Mother , secondary to MVA in 40s No problems noted. Denies family history of Anesthesia complication Bleeding disorder Social History (Updated 01/14/22 @ 18:56 by Lety Awan MD) Smoking and tobacco status: current every day smoker cigarettes Packs smoked per day: 0.75 Years cigarettes smoked: 25 [ Other cigarette details: Half to full pack per day] Alcohol intake: current Alcohol intake frequency: other Alcohol use comment: Maybe once a month Substance/Drug Use: current Substance/Drug use frequency: other Substance/Drug use type: Marijuana Other substance/drug use details: 1-2 times per month Lives independently: Yes Other PFSH information: Supplemental PFSH Information: Patient reports that she has not been tested for sleep apnea When she had anesthesia for cholecystectomy, had what sounds like some postoperative apnea Patient does NOT want a tracheotomy should it ever be felt she needed one; she wanted to make sure this was clear Vitals/I&O/Wt Last Vital Signs Temp 98.7 F 01/14/22 15:38 Pulse 97 01/14/22 15:38 Resp 18 01/14/22 16:35 BP 125/59 01/14/22 15:38 Pulse Ox 93 01/14/22 16:35 O2 Del Method 01/14/22 16:26 01/14/22 01/14/22 01/14/22 06:59 14:59 22:59 Intake Total 490 / 490 Balance 490 / 490 Weight last 48 hrs Weight 137.438 kg Weight 137.438 kg Physical Exam Narrative: Constitutional: Awake and alert, able to provide history, cooperative, well- nourished HEENT: Normocephalic, atraumatic, extraocular movements intact, pupils reactive, nasopharynx is clear, oropharynx with poor dentition and dry membranes but otherwise clear Neck: Large but supple Respiratory: Clear to auscultation bilaterally without any wheezes noted Cardiovascular: Regular rate and rhythm, distant heart sounds, no audible murmurs Abdomen: Soft, obese, nontender, positive bowel sounds : Left labia majora is darker red in color than right and indurated, tender to palpation, does not extend to the labia minora beyond labia minora being raised from the swelling above, induration does extend posteriorly without erythema approximately 4 cm beyond the labia into the left buttock tissue more so than the medial perineal area. The primary area of swelling and induration involves the labia majora on the left. Extremities: No pitting edema or calf tenderness Skin: Skin is dry Neuro: Speech clear, face symmetric, moves all extremities, no abnormal movements Psych: Normal affect Data : 01/14/22 12:20 01/14/22 12:20 Other Labs: Radiology Impressions Abdomen/Pelvis CT 01/14/22 12:00 IMPRESSION: 1. Extensive cellulitis and inflammatory changes within the LEFT perineum centered around the labia. No definite abscess is identified. 2. Bilateral benign adrenal adenomas. 3. Marked hepatomegaly and hepatic steatosis. 4. Prior cholecystectomy. 5. Normal appendix. Laboratory Results WBC 23.5 10^3/uL (4.0-10.0) H 01/14/22 12:20 RBC 5.92 10^6/uL (4.1-5.3) H 01/14/22 12:20 Hgb 15.3 g/dL (11.5-15.3) 01/14/22 12:20 Hct 49.1 % (37.0-47.0) H 01/14/22 12:20 MCV 82.9 fl (81-99) 01/14/22 12:20 MCH 25.8 pg (28.0-34.0) L 01/14/22 12:20 MCHC 31.2 g/dL (30.0-36.0) 01/14/22 12:20 RDW 15.0 % (12.1-15.1) 01/14/22 12:20 Plt Count 310 10^3/cmm (130-400) 01/14/22 12:20 MPV 9.9 fL (7.4-10.4) 01/14/22 12:20 Neut % (Auto) 85.6 % 01/14/22 12:20 Lymph % (Auto) 5.7 % 01/14/22 12:20 [place] % (Auto) 6.1 % 01/14/22 12:20 Eos % (Auto) 0.9 % 01/14/22 12:20 Baso % (Auto) 0.8 % 01/14/22 12:20 Neut # (Auto) 20.11 10^3/uL (1.8-7.7) H 01/14/22 12:20 Lymph # (Auto) 1.4 10^3/uL (0.8-4.8) 01/14/22 12:20 [place] # (Auto) 1.4 10^3/uL (0.2-0.9) H 01/14/22 12:20 Eos # (Auto) 0.2 10^3/uL (0.0-0.8) 01/14/22 12:20 Baso # (Auto) 0.2 10^3/uL (0.0-0.1) H 01/14/22 12:20 Nucleated RBC % (auto) 0 % 01/14/22 12:20 Nucleated RBCs # 0.0 /100WBC 01/14/22 12:20 Sodium 132 mmol/L (136-145) L 01/14/22 12:20 Potassium 4.4 mmol/L (3.5-5.1) 01/14/22 12:20 Chloride 93 mmol/L (98-107) L 01/14/22 12:20 Carbon Dioxide 28 mmol/L (22-29) 01/14/22 12:20 Anion Gap 15.4 (5-19) 01/14/22 12:20 BUN 10 mg/dL (6-20) 01/14/22 12:20 Creatinine 0.7 mg/dL (0.5-0.9) 01/14/22 12:20 GFR Calculation 89.3 mL/min (90-130) L 01/14/22 12:20 Glucose 445 mg/dL (65-115) H 01/14/22 12:20 Calculated Osmolality 292 mOsm/kg (285-295) 01/14/22 12:20 Calcium 9.6 mg/dL (8.5-10.5) 01/14/22 12:20 Urine Color Yellow (Yellow) 01/14/22 13:42 Urine Appearance Clear (CLEAR) 01/14/22 13:42 Urine pH 5 (5-7) 01/14/22 13:42 Ur Specific [place] 1.005 (1.005-1.030) 01/14/22 13:42 Urine Protein Neg (Negative) 01/14/22 13:42 Urine Glucose (UA) 4+ (Normal) H 01/14/22 13:42 Urine Ketones 1+ (Negative) H 01/14/22 13:42 Urine Blood Neg (Negative) 01/14/22 13:42 Urine Nitrate Negative (Negative) 01/14/22 13:42 Urine Bilirubin Neg (Negative) 01/14/22 13:42 Urine Urobilinogen Norm mg/dL (Negative) 01/14/22 13:42 Ur Leukocyte Esterase Trace (Negative) H 01/14/22 13:42 Urine RBC None /hpf (0-2) 01/14/22 13:42 Urine WBC Rare /hpf (0-5) 01/14/22 13:42 Ur Squamous Epith Cells 0-4 /hpf (0-5) H 01/14/22 13:42 Amorphous Sediment Not Reportable 01/14/22 13:42 Urine Bacteria Trace /hpf (NONE) 01/14/22 13:42 Micro: Microbiology 01/14/22 12:27 Blood Culture - Preliminary Blood SPECIMEN COLLECTED 01/14/22 12:40 Blood Culture - Preliminary Blood SPECIMEN COLLECTED A&P Assessment and plan (1) Cellulitis of labia majora: Left-sided, with induration, associated pain, fever at home and significant leukocytosis, rapid expansion of involved area over the last 24 to 48 hours Imaging study with soft tissue swelling but no definite abscess formation noted nor any indication of gas formation. No crepitus on exam. On exam induration is primarily limited to the labia extending to the anterior buttock to a lesser degree as described. (2) Diabetes mellitus, type II: Not currently taking prescribed medication regimen which is Farxiga and metformin With hyperglycemia and glucosuria, 1+ ketonuria but normal anion gap Qualifiers: Diabetes mellitus complication status: with hyperglycemia Diabetes mellitus snf insulin use: without snf use Qualified Code(s): E11.65 - Type 2 diabetes mellitus with hyperglycemia (3) Essential hypertension: Chronically on carvedilol and hydrochlorothiazide but reports that she has been told to take them both only as needed when her blood pressure is high. Has not taken any since probably June of this year. (4) COPD (chronic obstructive pulmonary disease): Related to tobacco use Chronically on Advair and albuterol inhaler as needed Has required oxygen in the past transiently Qualifiers: COPD type: emphysema Emphysema type: panlobular Qualified Code(s): J43.1 - Panlobular emphysema (5) Chronic GERD: On chronic PPI with continued symptoms (6) Infected dental carries: Chronic (7) Nicotine dependence, cigarettes, with unspecified nicotine-induced disorders: Continues to smoke a half to a pack a day of cigarettes, not currently interested in quitting (8) BMI 50.0-59.9, adult: Room air oxygen saturations at lower end of normal range at rest. Would not be surprised to see evidence of obesity hypoventilation or sleep apnea present during the course of this hospital stay though patient has not been formally diagnosed with either. (9) Non compliance w medication regimen: Patient admits to complacency with medication regimen in part because she does not see tangible benefit of the medicines for diabetes and hypertension consistently. Mentions no change in her blood sugars or A1c despite treatment with insulin and oral hypoglycemics and variability in blood pressures. Plan Inpatient admission Antibiotic coverage with vancomycin and Zosyn Blood cultures collected in the emergency room Surgical consultation > discussed with on-call surgery current findings both on exam and imaging and Dr. Coombs has agreed to see Ms. Dumont in the morning. Monitor site for further expansion as well as for worsening pain - discussed with nursing staff retail parts professional tonight and will update on-call physician Pain control Discussed with patient potential need for surgical intervention. She is hesitant to consider undergoing surgery, in particular if she had to have general anesthesia. She does not want to ever have to have a tracheostomy and was concerned that if she required intubation and mechanical ventilation temporarily that would be the next step. Reviewed with her that tracheostomy is only done in situations in which it is felt that somebody would need long-term intubation and mechanical ventilation. She says that when she had her cholecystectomy, she woke up with somebody strongly encouraging her to breathe so that she would not have to be intubated and put back on a ventilator. This is had some impact on her. I told her that it is not unusual after anesthesia for it to take a bit for somebody to wake up. We also talked about the possibility of her having sleep apnea or obesity hypoventilation syndrome. Anesthesia can impact both of these. We talked about BiPAP or facemask breathing device as another mechanism of helping her recover from anesthesia and need for respiratory support. Taking time to answer her questions and explained the process seem to alleviate some of her anxiety though it persist. Should she require surgery will need to reassure her and be clear of plans for anesthesia and respiratory support both during and after procedure. N.p.o. after midnight in the event that she needs surgical intervention in the morning IV fluids Low-dose Lantus and sliding scale insulin currently for blood sugars Hold oral hypoglycemic agents which patient was not even taking recently Check hemoglobin A1c Diabetic diet education With patient the importance of maintaining better blood sugar control to help with healing regardless of course of this particular infection. Also discussed that uncontrolled blood sugars likely have contributed to the infection. Patient has not been taking carvedilol since probably June of this year nor her hydrochlorothiazide, will hold both and monitor blood pressures Continue home Advair and albuterol Add incentive spirometer Continue home PPI Add lactobacillus Stool softener/laxatives Narcan if needed Antibiotic coverage for cellulitis should also help dental caries Oxygen therapy if needed, BiPAP if needed, respiratory therapy to assess and follow Importance of compliance with medication regimens discussed with patient Nicotine patch if needed, enjoys smoking and not currently interested in quitting Supportive care otherwise Findings, concerns and plans were reviewed with patient and she was given an opportunity to ask questions Currently anticipate patient to be discharged home with outpatient follow-up to ensure resolution however should patient require surgical intervention she may require potential placement for wound care management or home health for wound care management assistance as she lives alone and area of involvement would be difficult for her to manage without help Full code although would not want to have a tracheostomy and long-term m echanical ventilation should it come to that Attestations Medical Necessity Statement*: Anticipated stay greater than 2 midnights in a patient with cellulitis of labia there is significant induration though no definitive abscess formation at this time. She has associated leukocytosis. At significant risk of further rapid clinical decline beyond what has occurred over the last 24 to 48 hours and requires close monitoring and treatment as outlined. 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
[2022-01-14] MEDS: piperacillin-tazobactam 3.375 GM in sodium chloride 0.9% (plus) 50 ML IV (19:10)
[2022-01-14] MEDS: sodium chloride 0.9% 1,000 ML 75 ML IV (19:58)
[2022-01-14] MEDS: oxyCODONE-APAP 5-325 mg Tablet 1 TAB PO (20:24)
[2022-01-14 21:10] LABS: Glucose Point of Care 368 mg/dL (70-110)
[2022-01-14] MEDS: sennosides 8.6 mg Tablet 17.2 MG PO (21:31)
[2022-01-14] MEDS: insulin lispro 100 unit/1 mL SUBCUT (21:31)
[2022-01-14] MEDS: gabapentin 100 mg Capsule PO (21:31)
[2022-01-14] MEDS: insulin glargine 100 units/1 mL 5 UNIT SUBCUT (21:32)
[2022-01-14] MEDS: vancomycin 1,500 MG/300 ML PIGGYBACK 200 MG IV (22:49)
[2022-01-15] VITALS (9 sets, daily range): BP systolic 108–138; BP diastolic 64–84; PULSE 80–98; RESP 16–20; TEMP 36.4–37.4; O2SAT 92–97
[2022-01-15] MEDS: cetirizine 10 mg Tablet PO ×2 (01:09→08:55)
[2022-01-15] MEDS: montelukast sodium 10 mg Tablet PO ×2 (01:10→08:56)
[2022-01-15] MEDS: piperacillin-tazobactam 3.375 GM in sodium chloride 0.9% (plus) 50 ML IV ×3 (02:26→23:00)
[2022-01-15] MEDS: oxyCODONE-APAP 5-325 mg Tablet 1 TAB PO (02:29)
[2022-01-15 02:53] LABS: Partial Thromboplastin Time 28.9 SECONDS (23.9-36.7)
[2022-01-15 02:54] LABS: Estmated Average Glucose 312; Hemoglobin A1C 12.5 % (4.0-6.0)
[2022-01-15 02:58] LABS: Basophils # 0.2 10^3/uL (0.0-0.1); Basophils % 0.7 %; Eosinophils # 0.4 10^3/uL (0.0-0.8); Eosinophils % 1.6 %; Hematocrit 42.4 % (37.0-47.0); Hemoglobin 13.1 g/dL (11.5-15.3); Lactic Sepsis W/Reflex 0.7 mmol/L (0.5-2.2); Lymphocytes # 1.5 10^3/uL (0.8-4.8); Lymphocytes % 6.6 %; Mean Corpuscular HGB Conc 30.9 g/dL (30.0-36.0); Mean Corpuscular Hemoglobin 25.6 pg (28.0-34.0); Mean Corpuscular Volume 82.8 fl (81-99); Mean Platelet Volume 10.3 fL (7.4-10.4); Monocytes # 1.9 10^3/uL (0.2-0.9); Monocytes % 7.9 %; Neutrophils # 19.09 10^3/uL (1.8-7.7); Nucleated Red Blood Cells % 0 %; Platelet Count 277 10^3/cmm (130-400); Red Blood Count 5.12 10^6/uL (4.1-5.3); Red Cell Distribution Width 14.7 % (12.1-15.1); White Blood Count 23.3 10^3/uL (4.0-10.0)
[2022-01-15 03:00] LABS: Alanine Aminotransferase 20 U/L (0-33); Albumin Level 3.1 g/dL (3.5-5.2); Alkaline Phosphatase 99 U/L (35-105); Blood Urea Nitrogen 8 mg/dL (6-20); Calcium 8.8 mg/dL (8.5-10.5); Carbon Dioxide 27 mmol/L (22-29); Chloride 96 mmol/L (98-107); Globulin 3.5 g/dL (1.3-4.6); Glomerular Filtration Rate 106.7 mL/min (90-130); Glucose 296 mg/dL (65-115); Magnesium 1.8 mg/dL (1.7-2.3); Osmolality Calculated 283 mOsm/kg (285-295); Phosphorus 2.9 mg/dL (2.5-4.5); Sodium 132 mmol/L (136-145); Total Bilirubin 0.6 mg/dL (0.15-1.2); Total Protein 6.6 g/dL (6.6-8.7)
[2022-01-15 03:01] LABS: Anion Gap 13.3 (5-19); Aspartate Amino Transferase 17 U/L (0-32); Potassium 4.3 mmol/L (3.5-5.1)
[2022-01-15 06:54] LABS: Glucose Point of Care 287 mg/dL (70-110)
--- NOTE | 2022-01-15 08:29 | P.CONIM_ITS ---
Providers/Reason For Consult Consulting Physician/Specialty*: Dr. Xavier Coombs, DO/General surgery Reason for Consult*: Left labial cellulitis Attending Physician: Demetrice Denton MD Primary Care Provider: CYNDI Casas History of Present Illness History of Present Illness Jennifer Dumont is a 46 year old female with diabetes, who presents to the hospital with pain and swelling in her left groin. She was found to have cellulitis of her left labia. She reports that it is tender to the touch. Pain is sharp and constant. Nothing seems to make the pain better. Denies any nausea or vomiting. Review of Systems General: Reports: 10 or more systems reviewed and unremarkable except in HPI and below Medications/Allergies Home Medications Medication Instructions Recorded Confirmed Last Taken Type albuterol sulfate 90 mcg/actuation 2 inh inhalation Q4H PRN shortness 12/07/19 01/14/22 01/13/22 Rx aerosol inhaler of breath or wheezing #18 grams fluticasone 250 mcg-salmeterol 50 1 inh inhalation BID #60 ea 12/07/19 01/14/22 01/13/22 Rx mcg/dose blistr powdr for inhalation (Advair Diskus) pantoprazole 40 mg tablet,delayed 40 mg PO QDAY #30 tabs 12/07/19 01/14/22 Unknown Rx release acetaminophen-caffeine 500 mg-65 1 tab PO Q12H PRN Pain 01/14/22 01/14/22 01/14/22 History mg tablet carvedilol 12.5 mg tablet 12.5 mg PO BID PRN High blood 01/14/22 01/14/22 Unknown History pressure dapagliflozin 10 mg tablet 10 mg PO DAILY 01/14/22 01/14/22 Unknown History (Farxiga) gabapentin 100 mg capsule 100 mg PO TID 01/14/22 01/14/22 01/13/22 History hydrochlorothiazide 25 mg tablet 25 mg PO DAILY PRN high blood 01/14/22 01/14/22 Unknown History pressure ibuprofen 200 mg tablet 800 mg PO BID PRN Pain 01/14/22 01/14/22 Unknown History metformin 500 mg tablet 500 mg PO BID 01/14/22 01/14/22 Unknown History montelukast 10 mg tablet 10 mg PO DAILY 01/14/22 01/14/22 Unknown History (Singulair) Allergies Allergy/AdvReac Type Severity Reaction Status Date / Time azithromycin Allergy ADR-Chest Verified 01/14/22 10:48 Pain prednisone Allergy ADR-Anxiety Verified 01/14/22 10:48 Current Medications Generic Name Dose Route Start Last Admin Trade Name Tonioq PRN Reason Stop Dose Admin Cetirizine HCl 10 mg 01/15/22 00:58 01/15/22 08:55 Cetirizine 10 Mg Tablet PO 10 mg DAILY MATILDE Administration Docusate Sodium 100 mg 01/15/22 09:00 01/15/22 08:56 Docusate Sodium 100 Mg Capsule PO 100 mg BID MATILDE Administration Gabapentin 100 mg 01/14/22 21:00 01/15/22 08:56 Gabapentin 100 Mg Capsule PO 100 mg TID MATILDE Administration Piperacillin Sod/Tazobactam 50 mls @ 12.5 mls/hr 01/14/22 18:30 01/15/22 13:13 Sod 3.375 gm/ Sodium Chloride IV 12.5 mls/hr Q8H MATILDE Administration Vancomycin/PEG/NADA/Lysine/Water 1,500 mg in 300 mls @ 200 mls/hr 01/14/22 21:00 01/15/22 13:57 Vancocin IV Infused Q12H MATILDE Infusion Sodium Chloride 1,000 mls @ 75 mls/hr 01/14/22 19:30 01/15/22 08:55 Sodium Chloride 0.9% IV 75 mls/hr .[id number] MATILDE Administration Clindamycin HCl/Dextrose 600 mg in 50 mls @ 100 mls/hr 01/15/22 09:00 01/15/22 12:24 Cleocin IV 01/16/22 01:29 Infused Q8H MATILDE Infusion Protocol Insulin Glargine 5 unit 01/14/22 21:00 01/14/22 21:32 Insulin Glargine 100 Units/1 Ml SUBCUT 5 unit BEDTIME MATILDE Administration Insulin Human Lispro 0 unit 01/14/22 21:00 01/14/22 21:31 Insulin Lispro 100 Unit/1 Ml SUBCUT 6 unit BEDTIME MATILDE Administration Protocol Insulin Human Lispro 0 unit 01/15/22 12:00 01/15/22 12:22 Insulin Lispro 100 Unit/1 Ml SUBCUT 14 unit TIDWM MATILDE Administration Protocol Lactobacillus Acidophilus 1 tab 01/15/22 09:00 01/15/22 08:56 Lactobacillus 1 Tablet PO 1 tab BID MATILDE Administration Montelukast Sodium 10 mg 01/15/22 00:58 01/15/22 08:56 Montelukast Sodium 10 Mg Tablet PO 10 mg DAILY MATILDE Administration Oxycodone/Acetaminophen 1 tab 01/14/22 18:07 01/15/22 02:29 Oxycodone-Apap 5-325 Mg Tablet PO 1 tab Q4H PRN Administration MODERATE PAIN Pantoprazole Sodium 40 mg 01/15/22 09:00 01/15/22 08:[address] 40 Mg Tablet PO 40 mg DAILY MATILDE Administration Fluticasone/Salmeterol 1 puff 01/15/22 08:00 01/15/22 07:46 Fluticasone-Salmeterol 250-50 Diskus INHALATION 1 puff BID.RESPIRATORY MATILDE Administration Senna 17.2 mg 01/14/22 21:00 01/14/22 21:31 Sennosides 8.6 Mg Tablet PO 17.2 mg BEDTIME MATILDE Administration PFSH Acute PFSH: Medical History Anxiety and depression BMI 50.0-59.9, adult Chronic GERD COPD (chronic obstructive pulmonary disease) has required oxygen in the past Diabetes mellitus, type II Essential hypertension 0 Mass of adrenal gland Surgical History Hx of cholecystectomy Family History Father Lung disease Family/Other Diabetes Mother , secondary to MVA in 40s No problems noted. Denies family history of Anesthesia complication Bleeding disorder Social History Smoking and tobacco status: current every day smoker cigarettes Packs smoked per day: 0.75 Years cigarettes smoked: 25 [ Other cigarette details: Half to full pack per day] Alcohol intake: current Alcohol intake frequency: other Alcohol use comment: Melvin deras once a month Substance/Drug Use: current Substance/Drug use frequency: other Substance/Drug use type: Marijuana Other substance/drug use details: 1-2 times per month Lives independently: Yes Vitals/I&O/Wt Last Vital Signs Temp 98.0 F 01/15/22 11:00 Pulse 80 01/15/22 11:00 Resp 20 H 01/15/22 11:00 BP 124/75 01/15/22 11:00 Pulse Ox 96 01/15/22 11:00 O2 Del Method 01/15/22 11:00 O2 Flow Rate 1.5 01/15/22 07:50 01/14/22 01/15/22 01/15/22 22:59 06:59 14:59 Intake Total 490 / 490 350 / 840 2331.25 / 2331.25 Output Total 300 / 300 Balance 490 / 490 50 / 540 2331.25 / 2331.25 Weight last 48 hrs Weight 303 lb Weight 303 lb Physical Exam Narrative: General : Patient is morbidly obese, no acute distress, oriented x3 Head : Normal cephalic, a-traumatic. Ears : Pinnae and external canal are normal. Hearing is normal. Eyes : PERRLA, Sclera and injection are normal. No conjunctival discharge. Nose : Mucous membranes are without erythema. Throat : buccal mucosa is normal, gums are without significant recession or hypertrophy. Lungs : Equal chest rise bilaterally, no use of accessory muscles, trachea is midline. Cor : Rate and rhythm are normal. Abdomen : Soft, ND, NT, no g/r/m Skin: There is edema and cellulitis to the left labia. No crepitus or evidence of Ese's gangrene Extremities : No edema, no cyanosis or clubbing, dorsalis pedis pulses are present bilaterally, non-tender to palpation of calves. Upper extremities are normal bilaterally. Back : non-tender to palpation, no CVA tenderness. Neuro : CN II - XII intact, Upper and lower extremities have equal and full strength Data : 01/15/22 02:14 01/15/22 02:14 Micro: Microbiology 01/14/22 12:27 Blood Culture - Preliminary Blood NEGATIVE TO DATE 01/14/22 12:40 Blood Culture - Preliminary Blood NEGATIVE TO DATE A&P Assessment and plan (1) Cellulitis of labia majora: Plan No acute surgical intervention Antibiotics and medical management per hospitalist Will follow Coding Level of Care Code Acute Fisher Spear for [facility] Diagnoses Cellulitis of labia majora N76.2
[2022-01-15] MEDS: insulin lispro 100 unit/1 mL SUBCUT ×4 (08:51→21:16)
[2022-01-15] MEDS: ketorolac 30 mg/mL INJ 15 MG IVP ×3 (08:52→21:16)
[2022-01-15] MEDS: sodium chloride 0.9% 1,000 ML 75 ML IV ×2 (08:55→22:39)
[2022-01-15] MEDS: pantoprazole DR 40 mg Tablet PO (08:55)
[2022-01-15] MEDS: lactobacillus 1 Tablet 1 TAB PO ×2 (08:56→17:41)
[2022-01-15] MEDS: gabapentin 100 mg Capsule PO ×3 (08:56→20:58)
[2022-01-15] MEDS: docusate sodium 100 mg Capsule PO ×2 (08:56→17:41)
--- NOTE | 2022-01-15 09:59 | PM.PN ---
Subjective Subjective: Patient was examined in presence of female production or plant engineer her nurse and Dr. Coombs also evaluated her at the end of our visit There is no plan for surgery I will let her eat Will add anti-inflammatory medications and use Dilaudid for pain management along bowel regimen Closely monitored no active signs of Ese's gangrene She is afebrile Vitals/I&O/Wt Last Vital Signs Temp 97.6 F 01/15/22 07:43 Pulse 95 01/15/22 07:50 Resp 16 01/15/22 07:50 BP 138/84 01/15/22 07:43 Pulse Ox 92 01/15/22 07:50 O2 Del Method 01/15/22 07:50 O2 Flow Rate 1.5 01/15/22 07:50 01/14/22 01/15/22 01/15/22 22:59 06:59 14:59 Intake Total 490 / 490 350 / 840 1381.25 / 1381.25 Output Total 300 / 300 Balance 490 / 490 50 / 540 1381.25 / 1381.25 Weight last 48 hrs Weight 137.438 kg Weight 137.438 kg Physical Exam Narrative: Patient is awake and alert Abdomen distended with obesity Nonfocal neuro exam Currently on room air S1, S2 Vulvar area was examined in presence of female production or plant engineer, her left labia majora is intubated, tender to palpate with erythema no active purulent drainage, no signs of crepitation no signs of Ese's gangrene It is extending to the superior border of buttocks Tender lymphadenopathy Data : 01/15/22 02:14 01/15/22 02:14 Micro: Microbiology 01/14/22 12:27 Blood Culture - Preliminary Blood SPECIMEN COLLECTED 01/14/22 12:40 Blood Culture - Preliminary Blood SPECIMEN COLLECTED A&P Assessment and plan (1) Anxiety and depression: (2) Chronic GERD: (3) Essential hypertension: (4) Diabetes mellitus, type II: Qualifiers: Diabetes mellitus halfway insulin use: without halfway use Diabetes mellitus complication status: with hyperglycemia Qualified Code(s): E11.65 - Type 2 diabetes mellitus with hyperglycemia (5) Cellulitis of labia majora: (6) Non compliance w medication regimen: (7) COPD (chronic obstructive pulmonary disease): Qualifiers: COPD type: emphysema Emphysema type: panlobular Qualified Code(s): J43.1 - Panlobular emphysema Plan Nonpurulent cellulitis of labia majora No signs of sepsis Skin is indurated No active abscess formation Continue IV antibiotics I will add clindamycin for toxin suppression as No signs of Ese's gangrene Patient was examined in front of female production or plant engineer Dr. Gillespie was also present in the room No plan for surgery We will let her eat today She still has leukocytosis however afebrile Acute hypoxia related to hypoventilation because of her posture she is on 1 L nasal cannula which was transitioned to room air Poorly controlled diabetes Patient was taking long-acting insulin by 50 units which I have counseled her to resume Hyperglycemia with A1c 12.5 Consistent carb diet, sliding scale, add Lantus I will keep her on IV fluids as well Follow-up with blood cultures Full code DVT prophylaxis on board Attestations Medical Necessity Statement*: Continue medical management Time Spent in Patient Care: 40 Coding Level of Care Code Acute Green Energy Marketing Analyst for g F[facility] Diagnoses Anxiety and depression F41.9; F32.9 Chronic GERD K21.9 Essential hypertension I10 Diabetes mellitus, type II E11.65 Diabetes mellitus halfway insulin use: without long distance billing operator use Diabetes mellitus complication status: with hyperglycemia Cellulitis of labia majora N76.2 Non compliance w medication regimen Z91.14 COPD (chronic obstructive pulmonary disease) J43.1 COPD type: emphysema Emphysema type: panlobular
[2022-01-15] MEDS: clindamycin 600 MG/50 ML PREMIX 100 MG IV ×2 (10:07→17:38)
[2022-01-15] MEDS: vancomycin 1,500 MG/300 ML PIGGYBACK 200 MG IV ×2 (10:45→20:59)
[2022-01-15 12:07] LABS: Glucose Point of Care 390 mg/dL (70-110)
[2022-01-15 18:10] LABS: Glucose Point of Care 338 mg/dL (70-110)
[2022-01-15 20:58] LABS: Glucose Point of Care 344 mg/dL (70-110)
[2022-01-15] MEDS: sennosides 8.6 mg Tablet 17.2 MG PO (20:58)
[2022-01-15] MEDS: insulin glargine 100 units/1 mL 5 UNIT SUBCUT (21:17)
[2022-01-16] VITALS (10 sets, daily range): BP systolic 128–162; BP diastolic 67–88; PULSE 78–88; RESP 16–20; TEMP 36.4–37.1; O2SAT 91–95
[2022-01-16] MEDS: clindamycin 600 MG/50 ML PREMIX 100 MG IV (01:06)
[2022-01-16] MEDS: acetaminophen 325 mg Tablet 650 MG PO ×2 (01:07→19:15)
[2022-01-16] MEDS: piperacillin-tazobactam 3.375 GM in sodium chloride 0.9% (plus) 50 ML IV ×3 (03:33→21:21)
[2022-01-16] MEDS: ketorolac 30 mg/mL INJ 15 MG IVP ×4 (03:33→22:04)
[2022-01-16 06:44] LABS: Glucose Point of Care 293 mg/dL (70-110)
[2022-01-16 07:55] LABS: Basophils # 0.2 10^3/uL (0.0-0.1); Basophils % 0.8 %; Eosinophils # 0.9 10^3/uL (0.0-0.8); Eosinophils % 4.3 %; Hematocrit 40.1 % (37.0-47.0); Hemoglobin 12.3 g/dL (11.5-15.3); Lymphocytes # 1.4 10^3/uL (0.8-4.8); Lymphocytes % 6.9 %; Mean Corpuscular HGB Conc 30.7 g/dL (30.0-36.0); Mean Corpuscular Hemoglobin 25.8 pg (28.0-34.0); Mean Corpuscular Volume 84.1 fl (81-99); Mean Platelet Volume 10.1 fL (7.4-10.4); Monocytes # 1.4 10^3/uL (0.2-0.9); Monocytes % 6.7 %; Neutrophils # 15.88 10^3/uL (1.8-7.7); Neutrophils % 79.4 %; Nucleated Red Blood Cells % 0 %; Platelet Count 275 10^3/cmm (130-400); Red Blood Count 4.77 10^6/uL (4.1-5.3); Red Cell Distribution Width 14.8 % (12.1-15.1)
[2022-01-16 08:44] LABS: Alanine Aminotransferase 23 U/L (0-33); Albumin Level 2.9 g/dL (3.5-5.2); Alkaline Phosphatase 101 U/L (35-105); Anion Gap 13.9 (5-19); Aspartate Amino Transferase 17 U/L (0-32); Blood Urea Nitrogen 11 mg/dL (6-20); Calcium 9.2 mg/dL (8.5-10.5); Carbon Dioxide 28 mmol/L (22-29); Chloride 97 mmol/L (98-107); Globulin 3.8 g/dL (1.3-4.6); Glomerular Filtration Rate 106.7 mL/min (90-130); Glucose 285 mg/dL (65-115); Osmolality Calculated 290 mOsm/kg (285-295); Potassium 3.9 mmol/L (3.5-5.1); Sodium 135 mmol/L (136-145); Total Bilirubin 0.3 mg/dL (0.15-1.2); Total Protein 6.7 g/dL (6.6-8.7); Vancomycin Trough 7.3 ug/mL (10-15)
[2022-01-16 08:45] LABS: C Reactive Protein 314.7 mg/L (0.0-4.9)
[2022-01-16 08:46] LABS: Lactate (Lactic Acid level) 0.7 mmol/L (0.5-2.2)
[2022-01-16] MEDS: lactobacillus 1 Tablet 1 TAB PO ×2 (10:06→17:31)
[2022-01-16] MEDS: cetirizine 10 mg Tablet PO (10:06)
[2022-01-16] MEDS: pantoprazole DR 40 mg Tablet PO (10:07)
[2022-01-16] MEDS: montelukast sodium 10 mg Tablet PO (10:07)
[2022-01-16] MEDS: docusate sodium 100 mg Capsule PO ×2 (10:07→17:32)
[2022-01-16] MEDS: gabapentin 100 mg Capsule PO ×3 (10:07→21:22)
[2022-01-16] MEDS: insulin lispro 100 unit/1 mL SUBCUT ×4 (10:10→21:59)
[2022-01-16] MEDS: vancomycin 1,250 MG/250 ML PIGGYBACK 200 MG IV ×2 (10:13→17:31)
--- NOTE | 2022-01-16 10:41 | PM.PN ---
Subjective Subjective: Leukocytosis trending down Afebrile Patient is noticing feeling better She is still hyperglycemic Vitals/I&O/Wt Last Vital Signs Temp 97.7 F 01/16/22 08:00 Pulse 84 01/16/22 08:00 Resp 17 01/16/22 08:00 BP 129/80 01/16/22 08:00 Pulse Ox 93 01/16/22 08:00 O2 Del Method 01/16/22 08:00 O2 Flow Rate 1.5 01/16/22 04:00 01/15/22 01/16/22 01/16/22 22:59 06:59 14:59 Intake Total 1400 / 3731.25 100 / 3831.25 600 / 600 Balance 1400 / 3731.25 100 / 3831.25 600 / 600 Weight last 48 hrs Weight 137.438 kg Weight 137.438 kg Physical Exam Narrative: Awake and alert Nonfocal neuro exam No active pain Afebrile EOMI, PERRLA Currently doing well on room air She was not on oxygen at the time of my evaluation she was try to get up to go to the bathroom Looks slightly well-hydrated today Abdomen distended however nontender Data : 01/16/22 07:45 01/16/22 07:45 Micro: Microbiology 01/15/22 12:30 MRSA Culture - Final Nose 01/14/22 12:27 Blood Culture - Preliminary Blood NEGATIVE TO DATE 01/14/22 12:40 Blood Culture - Preliminary Blood NEGATIVE TO DATE A&P Assessment and plan (1) Anxiety and depression: (2) Chronic GERD: (3) Essential hypertension: (4) COPD (chronic obstructive pulmonary disease): Qualifiers: COPD type: emphysema Emphysema type: panlobular Qualified Code(s): J43.1 - Panlobular emphysema (5) Diabetes mellitus, type II: Qualifiers: Diabetes mellitus machine long goods helper insulin use: without machine long goods helper use Diabetes mellitus complication status: with hyperglycemia Qualified Code(s): E11.65 - Type 2 diabetes mellitus with hyperglycemia (6) Cellulitis of labia majora: Plan Nonpurulent cellulitis of vulvar region No signs of crepitation of Ese gangrene Continue IV antibiotics for now She is afebrile Leukocytosis trending down She is still hyperglycemic Will increase the dose of Lantus Lactic 0.7 Full code Consistent carb diet No signs of sepsis Attestations Medical Necessity Statement*: Continue medical management Time Spent in Patient Care: 40 Coding Level of Care Code Acute Sustainability Coach for [facility] Diagnoses Anxiety and depression F41.9; F32.9 Chronic GERD K21.9 Essential hypertension I10 COPD (chronic obstructive pulmonary disease) J43.1 COPD type: emphysema Emphysema type: panlobular Diabetes mellitus, type II E11.65 Diabetes mellitus machine long goods helper insulin use: without senior care use Diabetes mellitus complication status: with hyperglycemia Cellulitis of labia majora N76.2
[2022-01-16 11:37] LABS: Glucose Point of Care 355 mg/dL (70-110)
[2022-01-16 16:31] LABS: Glucose Point of Care 311 mg/dL (70-110)
--- NOTE | 2022-01-16 17:49 | P.PN_ITS ---
Subjective Subjective: Patient reports that her pain has improved. No new complaints Vitals/I&O/Wt Last Vital Signs Temp 98.2 F 01/16/22 15:32 Pulse 88 01/16/22 15:32 Resp 16 01/16/22 15:32 BP 162/84 01/16/22 15:32 Pulse Ox 92 01/16/22 15:32 O2 Del Method 01/16/22 15:32 O2 Flow Rate 1.5 01/16/22 08:00 01/16/22 01/16/22 01/16/22 06:59 14:59 22:59 Intake Total 100 / 3831.25 1130 / 1130 250 / 1380 Balance 100 / 3831.25 1130 / 1130 250 / 1380 Physical Exam Narrative: General: No acute distress, awake alert and oriented x3 Skin: Left labia with improved edema and cellulitis Data : 01/16/22 07:45 01/16/22 07:45 Micro: Microbiology 01/15/22 12:30 MRSA Culture - Final Nose A&P Assessment and plan (1) Cellulitis of labia majora: Plan No acute surgical intervention Antibiotics and medical management per hospitalist General Surgery will sign off. Please reconsult if the need arises Attestations Medical Necessity Statement*: Further hospitalization per hospitalist Coding Level of Care Code Acute Insulator Apprentice for [facility] Diagnoses Cellulitis of labia majora N76.2
[2022-01-16 21:21] LABS: Glucose Point of Care 287 mg/dL (70-110)
[2022-01-16] MEDS: sodium chloride 0.9% 1,000 ML 75 ML IV (21:22)
[2022-01-16] MEDS: sennosides 8.6 mg Tablet 17.2 MG PO (21:22)
[2022-01-16] MEDS: oxyCODONE-APAP 5-325 mg Tablet 1 TAB PO (21:54)
[2022-01-16] MEDS: insulin glargine 100 units/1 mL 15 UNIT SUBCUT (22:00)
[2022-01-17] VITALS (13 sets, daily range): BP systolic 129–160; BP diastolic 72–95; PULSE 72–83; RESP 15–18; TEMP 36.5–36.7; O2SAT 91–96
[2022-01-17] MEDS: vancomycin 1,250 MG/250 ML PIGGYBACK 200 MG IV ×3 (01:51→17:13)
[2022-01-17] MEDS: oxyCODONE-APAP 5-325 mg Tablet 1 TAB PO ×4 (02:02→21:11)
[2022-01-17] MEDS: ketorolac 30 mg/mL INJ 15 MG IVP ×4 (04:32→21:12)
[2022-01-17] MEDS: piperacillin-tazobactam 3.375 GM in sodium chloride 0.9% (plus) 50 ML IV ×3 (04:52→21:13)
[2022-01-17 05:01] LABS: Basophils # 0.1 10^3/uL (0.0-0.1); Eosinophils % 6.9 %; Hematocrit 39.7 % (37.0-47.0); Hemoglobin 12.1 g/dL (11.5-15.3); Lymphocytes # 1.5 10^3/uL (0.8-4.8); Lymphocytes % 10.6 %; Mean Corpuscular HGB Conc 30.5 g/dL (30.0-36.0); Mean Corpuscular Hemoglobin 25.9 pg (28.0-34.0); Mean Corpuscular Volume 84.8 fl (81-99); Mean Platelet Volume 10.4 fL (7.4-10.4); Monocytes % 7.1 %; Neutrophils # 10.46 10^3/uL (1.8-7.7); Neutrophils % 73.3 %; Nucleated Red Blood Cells % 0 %; Platelet Count 281 10^3/cmm (130-400); Red Blood Count 4.68 10^6/uL (4.1-5.3); Red Cell Distribution Width 14.7 % (12.1-15.1); White Blood Count 14.3 10^3/uL (4.0-10.0)
[2022-01-17 05:32] LABS: Anion Gap 11.8 (5-19); Blood Urea Nitrogen 10 mg/dL (6-20); Calcium 8.8 mg/dL (8.5-10.5); Carbon Dioxide 29 mmol/L (22-29); Chloride 101 mmol/L (98-107); Glomerular Filtration Rate 106.7 mL/min (90-130); Glucose 231 mg/dL (65-115); Osmolality Calculated 292 mOsm/kg (285-295); Potassium 3.8 mmol/L (3.5-5.1); Sodium 138 mmol/L (136-145)
[2022-01-17 06:53] LABS: Glucose Point of Care 234 mg/dL (70-110)
[2022-01-17] MEDS: insulin lispro 100 unit/1 mL SUBCUT ×4 (08:09→21:12)
[2022-01-17] MEDS: montelukast sodium 10 mg Tablet PO (08:42)
[2022-01-17] MEDS: lactobacillus 1 Tablet 1 TAB PO ×2 (08:42→17:33)
[2022-01-17] MEDS: cetirizine 10 mg Tablet PO (08:42)
[2022-01-17] MEDS: pantoprazole DR 40 mg Tablet PO (08:42)
[2022-01-17] MEDS: docusate sodium 100 mg Capsule PO ×2 (08:42→17:33)
[2022-01-17] MEDS: gabapentin 100 mg Capsule PO ×3 (08:43→21:13)
[2022-01-17 09:33] LABS: Vancomycin Trough 13.2 ug/mL (10-15)
--- NOTE | 2022-01-17 10:08 | P.PN_ITS ---
Subjective Subjective: Patient is stating that there is improvement however she turpentine distiller around her vulvar area No fever no such signs of sepsis Blood cultures negative so far leukocytosis trending down Vitals/I&O/Wt Last Vital Signs Temp 97.7 F 01/17/22 07:45 Pulse 81 01/17/22 08:24 Resp 16 01/17/22 08:24 BP 129/72 01/17/22 07:45 Pulse Ox 95 01/17/22 08:24 O2 Del Method 01/17/22 08:24 O2 Flow Rate 1.5 01/17/22 08:24 01/16/22 01/17/22 01/17/22 22:59 06:59 14:59 Intake Total 2029 300 / 3460 170 / 170 Balance 2029 300 / 3460 170 / 170 Physical Exam Narrative: Vulvar area is less erythematous no purple hue or tint, patient was examined with a female luncheonette operator in the room Tender to palpate redness has improved significantly Swelling still present It has not worsened from her left labia majora. Crepitation or signs of Ese gangrene Tender lymphadenopathy Awake and alert Abdomen soft S1, S2 Morbid obese Currently on 1.5 L nasal cannula Data : 01/17/22 04:37 01/17/22 04:37 A&P Assessment and plan (1) Anxiety and depression: (2) Chronic GERD: (3) Essential hypertension: (4) COPD (chronic obstructive pulmonary disease): Qualifiers: COPD type: emphysema Emphysema type: panlobular Qualified Code(s): J43.1 - Panlobular emphysema (5) Diabetes mellitus, type II: Qualifiers: Diabetes mellitus remote computer terminal operator insulin use: without remote computer terminal operator use Diabetes mellitus complication status: with hyperglycemia Qualified Code(s): E11.65 - Type 2 diabetes mellitus with hyperglycemia (6) Cellulitis of labia majora: Plan Nonpurulent cellulitis of labia majora Patient is showing signs of improvement No signs of crepitation or Ese's gangrene Continue IV antibiotics Leukocytosis trending down No signs of sepsis blood cultures are negative Afebrile Significant improvement in pain with ketorolac Continue bowel regimen along opioids Patient carries history of COPD currently on 1.5 L DVT prophylaxis on board Full code Anticipating discharge in next 72 hours Patient was examined in front of female luncheonette operator Attestations Medical Necessity Statement*: Continue medical management Time Spent in Patient Care: 40 Coding Level of Care Code Acute Biomedical Manager for [facility] Diagnoses Anxiety and depression F41.9; F32.9 Chronic GERD K21.9 Essential hypertension I10 COPD (chronic obstructive pulmonary disease) J43.1 COPD type: emphysema Emphysema type: panlobular Diabetes mellitus, type II E11.65 Diabetes mellitus remote computer terminal operator insulin use: without remote computer terminal operator use Diabetes mellitus complication status: with hyperglycemia Cellulitis of labia majora N76.2
[2022-01-17 11:11] LABS: Glucose Point of Care 307 mg/dL (70-110)
[2022-01-17] MEDS: HYDROmorphone 1 mg/mL INJ 1 mL 0.2 MG IVP (11:38)
--- NOTE | 2022-01-17 14:05 | PC.NURSE ---
Patient reported being gaulded around her labia and in between her inner thigh and labia. She requested some sort of powder to apply between the two. I placed some interdry to keep the area dry and to keep the areas from rubbing together which seemed to help. I also gave her a PRN dose of dilaudid for the pain, which is worse when she is up and moving.
[2022-01-17 17:02] LABS: Glucose Point of Care 354 mg/dL (70-110)
[2022-01-17] MEDS: nystatin powder 15 gm Btl 1 APPLIC TOPICAL (17:09)
[2022-01-17] MEDS: sennosides-docusate Tablet 1 TAB PO (17:33)
[2022-01-17 21:01] LABS: Glucose Point of Care 282 mg/dL (70-110)
[2022-01-17] MEDS: sennosides 8.6 mg Tablet 17.2 MG PO (21:11)
[2022-01-17] MEDS: insulin glargine 100 units/1 mL 15 UNIT SUBCUT (21:12)
[2022-01-17] MEDS: sodium chloride 0.9% 1,000 ML 75 ML IV (21:13)
--- NOTE | 2022-01-17 21:51 | PC.NURSE ---
Bedside report completed with THOMAS Pa and THOMAS Echols.
[2022-01-18] VITALS (12 sets, daily range): BP systolic 138–168; BP diastolic 78–98; PULSE 71–94; RESP 16–18; TEMP 36.4–37.1; O2SAT 90–97
[2022-01-18] MEDS: vancomycin 1,250 MG/250 ML PIGGYBACK 200 MG IV ×3 (01:15→18:17)
[2022-01-18] MEDS: oxyCODONE-APAP 5-325 mg Tablet 1 TAB PO ×3 (01:20→18:18)
[2022-01-18] MEDS: ketorolac 30 mg/mL INJ 15 MG IVP ×4 (03:50→21:41)
[2022-01-18] MEDS: piperacillin-tazobactam 3.375 GM in sodium chloride 0.9% (plus) 50 ML IV ×3 (04:41→21:12)
[2022-01-18 05:10] LABS: Basophils # 0.1 10^3/uL (0.0-0.1); Eosinophils % 6.8 %; Hematocrit 39.9 % (37.0-47.0); Hemoglobin 12.1 g/dL (11.5-15.3); Lymphocytes # 1.5 10^3/uL (0.8-4.8); Lymphocytes % 10.6 %; Mean Corpuscular HGB Conc 30.3 g/dL (30.0-36.0); Mean Corpuscular Hemoglobin 25.6 pg (28.0-34.0); Mean Corpuscular Volume 84.5 fl (81-99); Mean Platelet Volume 10.2 fL (7.4-10.4); Monocytes % 6.7 %; Neutrophils # 10.53 10^3/uL (1.8-7.7); Neutrophils % 74.1 %; Nucleated Red Blood Cells % 0 %; Platelet Count 337 10^3/cmm (130-400); Red Blood Count 4.72 10^6/uL (4.1-5.3); Red Cell Distribution Width 14.6 % (12.1-15.1); White Blood Count 14.2 10^3/uL (4.0-10.0)
[2022-01-18 05:37] LABS: Anion Gap 11.6 (5-19); Blood Urea Nitrogen 8 mg/dL (6-20); C Reactive Protein 144.3 mg/L (0.0-4.9); Calcium 8.7 mg/dL (8.5-10.5); Carbon Dioxide 30 mmol/L (22-29); Chloride 98 mmol/L (98-107); Glomerular Filtration Rate 106.7 mL/min (90-130); Glucose 188 mg/dL (65-115); Osmolality Calculated 285 mOsm/kg (285-295); Potassium 3.6 mmol/L (3.5-5.1); Sodium 136 mmol/L (136-145)
[2022-01-18 06:09] LABS: Glucose Point of Care 186 mg/dL (70-110)
[2022-01-18] MEDS: insulin lispro 100 unit/1 mL SUBCUT ×4 (08:59→21:11)
[2022-01-18] MEDS: nystatin powder 15 gm Btl 1 APPLIC TOPICAL ×2 (08:59→18:18)
[2022-01-18] MEDS: lactobacillus 1 Tablet 1 TAB PO ×2 (08:59→18:18)
[2022-01-18] MEDS: sennosides-docusate Tablet 1 TAB PO ×2 (09:00→18:18)
[2022-01-18] MEDS: montelukast sodium 10 mg Tablet PO (09:00)
[2022-01-18] MEDS: gabapentin 100 mg Capsule PO ×3 (09:00→21:10)
[2022-01-18] MEDS: cetirizine 10 mg Tablet PO (09:00)
[2022-01-18] MEDS: docusate sodium 100 mg Capsule PO ×2 (09:00→18:18)
[2022-01-18] MEDS: pantoprazole DR 40 mg Tablet PO (09:00)
--- NOTE | 2022-01-18 10:08 | P.PN_ITS ---
Subjective Subjective: Patient is endorsing feeling better however pain is 4/10 I have decreased the frequency of Toradol Afebrile Culture negative Patient was examined with a female glass unloading equipment tender, nurse Vitals/I&O/Wt Last Vital Signs Temp 98.1 F 01/18/22 08:00 Pulse 85 01/18/22 08:40 Resp 17 01/18/22 08:40 BP 138/81 01/18/22 08:00 Pulse Ox 90 01/18/22 08:40 O2 Del Method 01/18/22 08:40 O2 Flow Rate 1.5 01/18/22 04:00 01/17/22 01/18/22 01/18/22 22:59 06:59 14:59 Intake Total 780 / 2560 300 / 2860 120 / 120 Balance 780 / 2560 300 / 2860 120 / 120 Weight last 48 hrs Weight 107.133 kg Physical Exam Narrative: Left labia majora is still swollen however erythema and tenderness slightly improved asking for yesterday No sign of hypertension of Ese's gangrene 's S1, S2 Currently on room air Awake and alert Abdomen distended Nontender Patient is pleasant during my evaluation Data : 01/18/22 04:02 01/18/22 04:02 A&P Assessment and plan (1) Anxiety and depression: (2) Chronic GERD: (3) Essential hypertension: (4) COPD (chronic obstructive pulmonary disease): (5) Diabetes mellitus, type II: (6) Cellulitis of labia majora: Plan Nonpurulent cellulitis of labia majora No signs of Ese's gangrene Leukocytosis trending down No fevers Culture negative Continue antibiotics Patient is still complaining of pain Decrease the frequency of Toradol Bowel regimen is on board DVT prophylaxis on board Considering the area of involvement with cellulitis and making sure patient is s table for discharge home she still complaining of pain, I have requested viscous lidocaine and nystatin powder as well Sugar within range Cultures negative to date Attestations Medical Necessity Statement*: She will stay until this weekend Time Spent in Patient Care: 40 Coding Level of Care Code Acute Logistics Service Representative for g Fwd Diagnoses Anxiety and depression F41.9; F32.9 Chronic GERD K21.9 Essential hypertension I10 COPD (chronic obstructive pulmonary disease) J44.9 Diabetes mellitus, type II E11.9 Cellulitis of labia majora N76.2
[2022-01-18 11:03] LABS: Glucose Point of Care 300 mg/dL (70-110)
[2022-01-18 17:02] LABS: Glucose Point of Care 248 mg/dL (70-110)
[2022-01-18 20:45] LABS: Glucose Point of Care 295 mg/dL (70-110)
[2022-01-18] MEDS: sennosides 8.6 mg Tablet 17.2 MG PO (21:10)
[2022-01-18] MEDS: insulin glargine 100 units/1 mL 15 UNIT SUBCUT (21:11)
[2022-01-19] VITALS (13 sets, daily range): BP systolic 138–175; BP diastolic 75–91; PULSE 69–87; RESP 16–20; TEMP 36.6–36.9; O2SAT 90–94
[2022-01-19] MEDS: oxyCODONE-APAP 5-325 mg Tablet 1 TAB PO ×4 (00:15→21:44)
[2022-01-19] MEDS: vancomycin 1,250 MG/250 ML PIGGYBACK 200 MG IV ×3 (01:34→16:13)
[2022-01-19] MEDS: ketorolac 30 mg/mL INJ 15 MG IVP ×5 (02:41→23:54)
[2022-01-19 05:10] LABS: Basophils # 0.1 10^3/uL (0.0-0.1); Basophils % 0.8 %; Eosinophils % 5.8 %; Hematocrit 39.6 % (37.0-47.0); Hemoglobin 12.2 g/dL (11.5-15.3); Lymphocytes # 1.6 10^3/uL (0.8-4.8); Lymphocytes % 9.1 %; Mean Corpuscular HGB Conc 30.8 g/dL (30.0-36.0); Mean Corpuscular Volume 84.4 fl (81-99); Monocytes # 1.2 10^3/uL (0.2-0.9); Monocytes % 6.9 %; Neutrophils # 13.09 10^3/uL (1.8-7.7); Neutrophils % 76.2 %; Nucleated Red Blood Cells % 0 %; Platelet Count 257 10^3/cmm (130-400); Red Blood Count 4.69 10^6/uL (4.1-5.3); Red Cell Distribution Width 14.6 % (12.1-15.1); White Blood Count 17.2 10^3/uL (4.0-10.0)
[2022-01-19] MEDS: piperacillin-tazobactam 3.375 GM in sodium chloride 0.9% (plus) 50 ML IV ×3 (05:39→20:08)
[2022-01-19 06:29] LABS: Glucose Point of Care 238 mg/dL (70-110)
--- NOTE | 2022-01-19 07:12 | CTR_ITS ---
PROCEDURE INFORMATION: Exam: CT Pelvis With Contrast Exam date and time: 01/19/2022 8:32 AM Age: 46 years old Clinical indication: Cellulitis; Other: Vulva; Additional info: Cellulitis with drainage TECHNIQUE: Imaging protocol: Computed tomography of the pelvis with contrast. Radiation optimization: All CT scans at this facility use at least one of these dose optimization techniques: automated exposure control; mA and/or kV adjustment per patient size (includes targeted exams where dose is matched to clinical indication); or iterative reconstruction. Contrast material: OMNI 350; Contrast volume: 95 ml; Contrast route: INTRAVENOUS (IV); COMPARISON: CT abdomen pelvis w con* [id number] 01/14/2022 12:45 PM RADIATION DOSE METRICS: Total DLP (mGy-cm): 1115.47 FINDINGS: Liver: There is a diffuse decrease in hepatic parenchymal density, consistent with fatty infiltration. Kidneys and ureters: Fluid density cyst arising from the lower pole the right kidney. Stomach and bowel: The visualized small bowel and large bowel are unremarkable. Appendix: The appendix appears normal. Intraperitoneal space: No pelvic ascites. No significant pelvic fluid collections. Lymph nodes: Bilateral inguinal lymphadenopathy increased in size compared to prior exam. Reactive appearing lower retroperitoneal lymph nodes again noted, similar to prior exam. Urinary bladder: The urinary bladder is not well distended, therefore not well evaluated. Reproductive: The uterus appears normal. Bones/joints: Unremarkable. Soft tissues: Mild body wall edema. Perineal skin thickening noted concerning for cellulitis. Fat stranding in the perineal and left medial gluteal region. The entirety of the mons pubis region is not included in the field of view. No abscess identified within the field of view. CT/CT pelvis w con* [id number] IMPRESSION: 1. Perineal skin thickening noted concerning for cellulitis. Fat stranding in the perineal, mons pubis, and left medial gluteal region. The entirety of the mons pubis region is not included in the field of view. No abscess identified within the field of view. 2. Bilateral inguinal lymphadenopathy increased in size compared to prior exam. 3. Hepatic steatosis.
[2022-01-19] MEDS: iohexol 350 mg/mL 100 mL Btl IV (08:43)
[2022-01-19] MEDS: sennosides-docusate Tablet 1 TAB PO ×2 (08:54→17:54)
[2022-01-19] MEDS: montelukast sodium 10 mg Tablet PO (08:54)
[2022-01-19] MEDS: lactobacillus 1 Tablet 1 TAB PO ×2 (08:54→17:54)
[2022-01-19] MEDS: pantoprazole DR 40 mg Tablet PO (08:54)
[2022-01-19] MEDS: gabapentin 100 mg Capsule PO ×3 (08:54→20:08)
[2022-01-19] MEDS: insulin lispro 100 unit/1 mL SUBCUT ×4 (08:55→20:33)
[2022-01-19] MEDS: cetirizine 10 mg Tablet PO (08:55)
[2022-01-19] MEDS: docusate sodium 100 mg Capsule PO ×2 (08:55→17:54)
[2022-01-19] MEDS: nystatin powder 15 gm Btl 1 APPLIC TOPICAL ×2 (08:55→17:54)
--- NOTE | 2022-01-19 10:38 | PM.PN ---
Subjective Subjective: Purulent drainage noted from just below her left labia majora I examined her with a female nurse in the room There is purulent drainage, CT scan with abscess did not show localized abscess however reactive lymphadenopathy has worsened and there is persistent cellulitis I will let her eat No drainable abscess so far detected on CT scan No fever blood cultures negative Vitals/I&O/Wt Last Vital Signs Temp 98.2 F 01/19/22 07:39 Pulse 87 01/19/22 07:43 Resp 16 01/19/22 08:54 BP 156/88 01/19/22 07:39 Pulse Ox 93 01/19/22 07:43 O2 Del Method 01/19/22 07:43 O2 Flow Rate 1.5 01/19/22 07:43 01/18/22 01/19/22 01/19/22 22:59 06:59 14:59 Intake Total 720 / 2620 500 / 3120 240 / 240 Balance 720 / 2620 500 / 3120 240 / 240 Weight last 48 hrs Weight 107.133 kg Physical Exam Narrative: Patient is awake and alert Patient examined with a female nurse in the room Left labia majora has erythema and tenderness to palpation there is one opening just below the left labia majora which has purulent drainage at this point Tender lymphadenopathy Erythema in hypogastric region noted Abdomen is soft S1, S2 He was on room air when I evaluated her Nonfocal neuro exam Pleasant and cooperative No acute respite distress No audible wheezing Data : 01/19/22 04:50 01/18/22 04:02 A&P Assessment and plan (1) Cellulitis of labia majora: (2) Diabetes mellitus, type II: (3) Chronic GERD: (4) Anxiety and depression: (5) Essential hypertension: (6) COPD (chronic obstructive pulmonary disease): Plan Leukocytosis worsening Purulent cellulitis I was notified by the night nurse I have obtained CT scan of pelvis with abscess which did not show localized abscess however reactive tender lymphadenopathy has worsened Blood cultures negative Afebrile No active signs of sepsis I will add clindamycin for toxin suppression along vancomycin and Zosyn Consistent carb diet Full code DVT prophylaxis can be continued Pain management with ketorolac and opioids COPD without acute exacerbation Anticipating patient will stay until Friday or Friday Attestations Medical Necessity Statement*: Continue hospitalization Time Spent in Patient Care: 40 Coding Level of Care Code Acute Clinical Appeals Specialist for [facility] Fwd Diagnoses Cellulitis of labia majora N76.2 Diabetes mellitus, type II E11.9 Chronic GERD K21.9 Anxiety and depression F41.9; F32.9 Essential hypertension I10 COPD (chronic obstructive pulmonary disease) J44.9
--- NOTE | 2022-01-19 10:42 | P.PN_ITS ---
Subjective Subjective: Patient began draining purulence from her left labia overnight. Denies any other new symptoms. Vitals/I&O/Wt Last Vital Signs Temp 98.2 F 01/19/22 07:39 Pulse 87 01/19/22 07:43 Resp 16 01/19/22 08:54 BP 156/88 01/19/22 07:39 Pulse Ox 93 01/19/22 07:43 O2 Del Method 01/19/22 07:43 O2 Flow Rate 1.5 01/19/22 07:43 01/18/22 01/19/22 01/19/22 22:59 06:59 14:59 Intake Total 720 / 2620 500 / 3120 240 / 240 Balance 720 / 2620 500 / 3120 240 / 240 Weight last 48 hrs Weight 236 lb 3 oz Physical Exam Narrative: General: No acute distress, awake alert and oriented x3 Skin: Left labia with induration and fluctuance with area of draining purulence. Pannus now with erythema and induration and fluctuance also Data : 01/19/22 04:50 01/18/22 04:02 A&P Assessment and plan (1) Cellulitis of labia majora: Plan Infection has spread to the pannus as well. It looks like this is organized into an abscess of the left labia and pannus 2 OR for incision and drainage of abscesses of left labia and pannus. The risks and benefits of the procedure, including but not limited to, bleeding, recurrence, scar, numbness, pain, damage to surrounding structures, were explained to the patient. She is understanding of the risks and wishes to proceed. Attestations Medical Necessity Statement*: Patient requires at least 1 more night in the hospital for dressing changes and IV antibiotics Coding Level of Care Code Acute Isobutylene Operator Chief for [facility] Fwd Diagnoses Cellulitis of labia majora N76.2
[2022-01-19 10:50] LABS: Glucose Point of Care 340 mg/dL (70-110)
[2022-01-19] MEDS: clindamycin 600 MG/50 ML PREMIX 100 MG IV ×2 (13:02→19:30)
[2022-01-19 16:50] LABS: Vancomycin Trough 13.6 ug/mL (10-15)
[2022-01-19 17:18] LABS: Glucose Point of Care 212 mg/dL (70-110)
[2022-01-19] MEDS: sennosides 8.6 mg Tablet 17.2 MG PO (20:08)
[2022-01-19] MEDS: insulin glargine 100 units/1 mL 15 UNIT SUBCUT (20:09)
[2022-01-19 20:24] LABS: Glucose Point of Care 289 mg/dL (70-110)
[2022-01-20] VITALS (27 sets, daily range): BP systolic 111–171; BP diastolic 59–124; PULSE 70–94; RESP 15–22; TEMP 36.2–36.8; O2SAT 90–96
[2022-01-20] MEDS: vancomycin 1,250 MG/250 ML PIGGYBACK 200 MG IV ×3 (01:02→16:24)
[2022-01-20] MEDS: clindamycin 600 MG/50 ML PREMIX 100 MG IV (02:53)
[2022-01-20] MEDS: oxyCODONE-APAP 5-325 mg Tablet 1 TAB PO ×2 (03:07→14:23)
[2022-01-20 05:24] LABS: Basophils # 0.2 10^3/uL (0.0-0.1); Eosinophils # 0.8 10^3/uL (0.0-0.8); Eosinophils % 5.4 %; Hematocrit 38.9 % (37.0-47.0); Hemoglobin 11.5 g/dL (11.5-15.3); Lymphocytes # 1.9 10^3/uL (0.8-4.8); Lymphocytes % 12.6 %; Mean Corpuscular HGB Conc 29.6 g/dL (30.0-36.0); Mean Corpuscular Hemoglobin 24.9 pg (28.0-34.0); Mean Corpuscular Volume 84.4 fl (81-99); Mean Platelet Volume 9.3 fL (7.4-10.4); Monocytes # 0.9 10^3/uL (0.2-0.9); Monocytes % 6.3 %; Neutrophils # 10.66 10^3/uL (1.8-7.7); Neutrophils % 72.3 %; Nucleated Red Blood Cells % 0 %; Platelet Count 327 10^3/cmm (130-400); Red Blood Count 4.61 10^6/uL (4.1-5.3); Red Cell Distribution Width 14.8 % (12.1-15.1); White Blood Count 14.7 10^3/uL (4.0-10.0)
[2022-01-20] MEDS: piperacillin-tazobactam 3.375 GM in sodium chloride 0.9% (plus) 50 ML IV ×3 (05:30→20:12)
[2022-01-20 06:01] LABS: Slide Review Slide Review Perform
[2022-01-20 06:02] LABS: Blood Urea Nitrogen 7 mg/dL (6-20); C Reactive Protein 152.1 mg/L (0.0-4.9); Calcium 9.2 mg/dL (8.5-10.5); Carbon Dioxide 33 mmol/L (22-29); Chloride 98 mmol/L (98-107); Glomerular Filtration Rate 131.7 mL/min (90-130); Glucose 200 mg/dL (65-115); Osmolality Calculated 286 mOsm/kg (285-295); Sodium 136 mmol/L (136-145)
[2022-01-20 06:15] LABS: Glucose Point of Care 182 mg/dL (70-110)
[2022-01-20] MEDS: ketorolac 30 mg/mL INJ 15 MG IVP (06:34)
[2022-01-20] MEDS: sodium chloride 0.9% 1,000 ML 30 ML IV (07:37)
--- NOTE | 2022-01-20 07:56 | W.PM.OPSUD ---
Surgery/Procedure H&P Update DATE OF PROCEDURE: January 20, 2022 DATE H&P PERFORMED: 02/14/22 PLANNED PROCEDURE: Operation Date: 01/19/22 11:50 Proposed Procedures p Incision And Drainage Left Labia and panis abscess(Left) - Xavier Coombs DO Operation Date: 01/20/22 08:00 Proposed Procedures p Incision And Drainage Incision And Drainage Perianal Abscess(Left) - Xavier Coombs DO
--- NOTE | 2022-01-20 08:03 | P.ANESASSM_ITS ---
Pre-Anesthetic Assessment Height/Weight: Height 1.61 m Weight 107.133 kg Temp Pulse Resp BP Pulse Ox O2 Del Method O2 Flow Rate 98.2 F 71 18 167/124 93 2 01/20/22 07:20 01/20/22 07:20 01/20/22 07:20 01/20/22 07:20 01/20/22 07:20 01/20/22 07:20 01/20/22 07:20 Operation Date: 01/19/22 11:50 Proposed Procedures p Incision And Drainage Left Labia and panis abscess(Left) - Xavier Coombs DO Operation Date: 01/20/22 08:00 Proposed Procedures p Incision And Drainage Incision And Drainage Perianal Abscess(Left) - Xavier Coombs DO Familial anesthetic complications: none Was Beta Ángela taken within 24 hours: Yes Was Clonidine taken within 24 hours: N/A Last intake: Intake Last Liquid Date 01/19/22 Last Liquid Time 22:00 Last Solid Date 01/19/22 Last Solid Time 17:00 Social Tobacco and No alcohol Exam alert, oriented x 3 and regular rate & rhythm Airway Submandibular: within normal limits Cervical ROM: within normal limits Mallampati: Class II Dentition: chipped Comments: Comments: Very poor dentition, missing most Pulmonary Chronic Obstructive Pulmonary Disease and Sleep Apnea CV/HEM Hypertension GI Gastroesophageal Reflux Disease Metabolic Diabetes Mellitus and Morbid Obesity Neuropsych Anxiety, Depression and Neuropathy Anesthetic Plan ASA status: 3 Anesthesia: General Medications/Allergies Home Medications Medication Instructions Recorded Confirmed Last Taken Type albuterol sulfate 90 mcg/actuation 2 inh inhalation Q4H PRN shortness 12/07/19 01/14/22 01/13/22 Rx aerosol inhaler of breath or wheezing #18 grams fluticasone 250 mcg-salmeterol 50 1 inh inhalation BID #60 ea 12/07/19 01/14/22 01/13/22 Rx mcg/dose blistr powdr for inhalation (Advair Diskus) pantoprazole 40 mg tablet,delayed 40 mg PO QDAY #30 tabs 12/07/19 01/14/22 Unknown Rx release acetaminophen-caffeine 500 mg-65 1 tab PO Q12H PRN Pain 01/14/22 01/14/22 01/14/22 History mg tablet carvedilol 12.5 mg tablet 12.5 mg PO BID PRN High blood 01/14/22 01/14/22 Unknown History pressure dapagliflozin 10 mg tablet 10 mg PO DAILY 01/14/22 01/14/22 Unknown History ([facility]) gabapentin 100 mg capsule 100 mg PO TID 01/14/22 01/14/22 01/13/22 History hydrochlorothiazide 25 mg tablet 25 mg PO DAILY PRN high blood 01/14/22 01/14/22 Unknown History pressure ibuprofen 200 mg tablet 800 mg PO BID PRN Pain 01/14/22 01/14/22 Unknown History metformin 500 mg tablet 500 mg PO BID 01/14/22 01/14/22 Unknown History montelukast 10 mg tablet 10 mg PO DAILY 01/14/22 01/14/22 Unknown History ([facility]) Allergies Allergy/AdvReac Type Severity Reaction Status Date / Time azithromycin Allergy ADR-Chest Verified 01/14/22 10:48 Pain prednisone Allergy ADR-Anxiety Verified 01/14/22 10:48 Current Medications Generic Name Dose Route Start Last Admin Trade Name Freq PRN Reason Stop Dose Admin Acetaminophen 650 mg 01/14/22 18:07 01/16/22 19:15 Acetaminophen 325 Mg Tablet PO 650 mg Q6H PRN Administration Mild/Mod Pain Or Temp >/= 101 Cetirizine HCl 10 mg 01/15/22 00:58 01/19/22 08:55 Cetirizine 10 Mg Tablet PO 10 mg DAILY MATILDE Administration Docusate Sodium 100 mg 01/15/22 09:00 01/19/22 17:54 Docusate Sodium 100 Mg Capsule PO 100 mg BID MATILDE Administration Gabapentin 100 mg 01/14/22 21:00 01/19/22 20:08 Gabapentin 100 Mg Capsule PO 100 mg TID MATILDE Administration Hydromorphone HCl 0.2 mg 01/15/22 10:50 01/17/22 11:38 Hydromorphone 1 Mg/Ml Inj 1 Ml IVP 0.2 mg Q4H PRN Administration SEVERE pain Piperacillin Sod/Tazobactam 50 mls @ 12.5 mls/hr 01/14/22 18:30 01/20/22 05:30 Sod 3.375 gm/ Sodium Chloride IV 12.5 mls/hr Q8H MATILDE Administration Vancomycin/PEG/NADA/Lysine/Water 1,250 mg in 250 mls @ 200 mls/hr 01/16/22 09:30 01/20/22 01:02 Vancocin IV 200 mls/hr Q8H MATILDE Administration Sodium Chloride 1,000 mls @ 30 mls/hr 01/20/22 07:30 01/20/22 07:37 Sodium Chloride 0.9% IV 01/21/22 07:29 30 mls/hr .Q24H MATILDE Administration Insulin Glargine 15 unit 01/16/22 21:00 01/19/22 20:09 Insulin Glargine 100 Units/1 Ml SUBCUT 15 unit BEDTIME MATILDE Administration Insulin Human Lispro 0 unit 01/14/22 21:00 01/19/22 20:33 Insulin Lispro 100 Unit/1 Ml SUBCUT 4 unit BEDTIME MATILDE Administration Protocol Insulin Human Lispro 0 unit 01/15/22 12:00 01/19/22 17:54 Insulin Lispro 100 Unit/1 Ml SUBCUT 6 unit TIDWM MATILDE Administration Protocol Ketorolac Tromethamine 15 mg 01/18/22 09:28 01/20/22 06:34 Ketorolac 30 Mg/Ml Inj IVP 01/23/22 09:27 15 mg Q4H PRN Administration MODERATE PAIN Lactobacillus Acidophilus 1 tab 01/15/22 09:00 01/19/22 17:54 Lactobacillus 1 Tablet PO 1 tab BID MATILDE Administration Montelukast Sodium 10 mg 01/15/22 00:58 01/19/22 08:54 Montelukast Sodium 10 Mg Tablet PO 10 mg DAILY MATILDE Administration Nystatin 1 applic 01/17/22 18:00 01/19/22 17:54 Nystatin Powder 15 Gm Btl TOPICAL 1 applic BID MATILDE Administration Oxycodone/Acetaminophen 1 tab 01/14/22 18:07 01/20/22 03:07 Oxycodone-Apap 5-325 Mg Tablet PO 1 tab Q4H PRN Administration MODERATE TO SEVERE PAIN Pantoprazole Sodium 40 mg 01/15/22 09:00 01/19/22 08:[address] 40 Mg Tablet PO 40 mg DAILY MATILDE Administration Fluticasone/Salmeterol 1 puff 01/15/22 08:00 01/19/22 19:57 Fluticasone-Salmeterol 250-50 Diskus INHALATION 1 puff BID.RESPIRATORY MATILDE Administration Senna 17.2 mg 01/14/22 21:00 01/19/22 20:08 Sennosides 8.6 Mg Tablet PO 17.2 mg BEDTIME MATILDE Administration Senna/Docusate Sodium 1 tab 01/17/22 18:00 01/19/22 17:54 Sennosides-Docusate Tablet PO 1 tab BID MATILDE Administration PFSH Anesthesia Medical History Anxiety and depression BMI 50.0-59.9, adult Chronic GERD COPD (chronic obstructive pulmonary disease) has required oxygen in the past Diabetes mellitus, type II Essential hypertension 0 Mass of adrenal gland Surgical History Hx of cholecystectomy Family History Father Lung disease Family/Other Diabetes Mother , secondary to MVA in 40s No problems noted. Denies family history of Anesthesia complication Bleeding disorder Social History Smoking and tobacco status: current every day smoker cigarettes Packs smoked per day: 0.75 Years cigarettes smoked: 25 [ Other cigarette details: Half to full pack per day] Alcohol intake: current Alcohol intake frequency: other Alcohol use comment: Maybe once a month Substance/Drug Use: current Substance/Drug use frequency: other Substance/Drug use type: Marijuana Other substance/drug use details: 1-2 times per month Lives independently: Yes Supplemental [facility] Information Patient reports that she has not been tested for sleep apnea When she had anesthesia for cholecystectomy, had what sounds like some postoperative apnea Patient does NOT want a tracheotomy should it ever be felt she needed one; she wanted to make sure this was clear Data Anesthesia : 01/20/22 05:00 01/20/22 05:00 Short CBC 01/19/22 01/20/22 Range/Units 04:50 05:00 WBC 17.2 H 14.7 H (4.0-10.0) 10^3/uL Hgb 12.2 11.5 (11.5-15.3) g/dL Hct 39.6 38.9 (37.0-47.0) % MCV 84.4 84.4 (81-99) fl Plt Count 257 327 (130-400) 10^3/cmm Neut % (Auto) 76.2 72.3 % Neut # (Auto) 13.09 H 10.66 H (1.8-7.7) 10^3/uL BMP 01/20/22 05:00 Sodium 136 Potassium 4.0 Chloride 98 Carbon Dioxide 33 H BUN 7 Creatinine 0.5 Glucose 200 H Calcium 9.2 Coags 01/20/22 05:00 C-Reactive Protein 152.1 H Microbiology 01/14/22 12:27 Blood Culture - Final Blood NO GROWTH AFTER 5 DAYS 01/14/22 12:40 Blood Culture - Final Blood NO GROWTH AFTER 5 DAYS Cardiac Studies: No Data to Display
--- NOTE | 2022-01-20 08:31 | PM.OP ---
Operative Report Date of procedure: January 20, 2022 Pre-op diagnosis: Left labia and pannus abscesses Post-op diagnosis: other (Left labial abscess pannus cellulitis) Procedure done: Incision and drainage of left labial and pannus abscesses Specimens removed/disposition: Cultures Surgeon: Dr. Xavier Coombs DO Anesthesia: General Estimated blood loss (mL): 20 Complications: None apparent Brief History: This is a very pleasant 46-year-old female with abscesses of her left labia and pannus Procedure: Patient was well in the operative room placed on the OR table in the supine position and frog-legged. A timeout was performed all present were in agreement. General anesthesia was achieved by department anesthesia. The left labia and pannus were inspected prepped and draped in usual sterile fashion. 2% lidocaine with epinephrine was used to anesthetize areas over the left labia and pannus. A 10 blade scalpel was then used to make stab incisions. Minimal purulence was expelled from the left labia no purulence was found in the pannus. Hemostats were used to break up abscess cavities. The cavities were then flushed with normal saline. Half-inch iodoform was then packed into the abscess cavities. Sterile dressings were applied. Patient tolerated the procedure well.
[2022-01-20] MEDS: fentaNYL 50 mcg/mL INJ 2mL IVP ×2 (08:57→09:02)
--- NOTE | 2022-01-20 09:30 | ANE.PACU2 ---
Inpatient post-anesthesia follow up: Airway intact: Yes Vital signs: Temperature 97.2 F Pulse Rate 70 Respiratory Rate 15 Blood Pressure 116/69 Pulse Oximetry 92 Oxygen Delivery Me thod [ Room Air Current Rate & Del jose luis] Oxygen Delivery Me thod Room Air Oxygen Flow Rate 5 Fraction of Inspir ed Oxygen Hydration adequate: Yes Nausea and vomiting: No Pain level: 3 Mental status: Baseline
--- NOTE | 2022-01-20 09:48 | PM.PN ---
Subjective Subjective: Patient had I&D today Afebrile White count 14.7 Cultures negative Vitals/I&O/Wt Last Vital Signs Temp 97.2 F L 01/20/22 09:14 Pulse 70 01/20/22 09:14 Resp 15 01/20/22 09:14 BP 116/69 01/20/22 09:14 Pulse Ox 92 01/20/22 09:14 O2 Del Method 01/20/22 09:14 O2 Flow Rate 5 01/20/22 09:10 01/19/22 01/20/22 01/20/22 22:59 06:59 14:59 Intake Total 470 / 1300 50 / 1350 400 / 400 Output Total Balance 470 / 1300 50 / 1350 375 / 375 Physical Exam Narrative: Awake and alert Nonfocal neuro exam Doing well on room air Abdomen soft I&D done with packing I have not examined her vulvar area S1, S2 Data : 01/20/22 05:00 01/20/22 05:00 Micro: Microbiology 01/14/22 12:27 Blood Culture - Final Blood NO GROWTH AFTER 5 DAYS 01/14/22 12:40 Blood Culture - Final Blood NO GROWTH AFTER 5 DAYS A&P Assessment and plan (1) Anxiety and depression: (2) Chronic GERD: (3) Cellulitis of labia majora: (4) BMI 50.0-59.9, adult: Plan Purulent cellulitis of labia majora Status post I&D 01/19 Continue antibiotics Leukocytosis stable Afebrile Cultures negative Will be able to discharge her tomorrow She might need home health services with daily dressing change instructions Will touch as per general surgery Continue opioids with bowel regimen She is also getting anti-inflammatory medications COPD without acute exacerbation DVT prophylaxis to be resumed Full code Consistent carb diet Attestations Medical Necessity Statement*: Hopefully discharge in next 24 hours Time Spent in Patient Care: 40 Coding Level of Care Code Acute Protection Agent for [facility] Fwd Diagnoses Anxiety and depression F41.9; F32.9 Chronic GERD K21.9 Cellulitis of labia majora N76.2 BMI 50.0-59.9, adult Z68.43
[2022-01-20] MEDS: lactobacillus 1 Tablet 1 TAB PO ×2 (09:55→17:31)
[2022-01-20] MEDS: montelukast sodium 10 mg Tablet PO (09:55)
[2022-01-20] MEDS: cetirizine 10 mg Tablet PO (09:56)
[2022-01-20] MEDS: lisinopril 20 mg Tablet PO (09:56)
[2022-01-20] MEDS: gabapentin 100 mg Capsule PO ×3 (09:56→20:14)
[2022-01-20] MEDS: sennosides-docusate Tablet 1 TAB PO ×2 (09:57→17:31)
[2022-01-20] MEDS: pantoprazole DR 40 mg Tablet PO (09:57)
[2022-01-20] MEDS: docusate sodium 100 mg Capsule PO ×2 (09:57→17:31)
[2022-01-20] MEDS: insulin lispro 100 unit/1 mL SUBCUT ×4 (09:59→21:43)
[2022-01-20] MEDS: HYDROmorphone 1 mg/mL INJ 1 mL IVP ×3 (11:06→21:59)
[2022-01-20 11:23] LABS: Glucose Point of Care 181 mg/dL (70-110)
[2022-01-20 17:15] LABS: Glucose Point of Care 236 mg/dL (70-110)
[2022-01-20] MEDS: acetaminophen 325 mg Tablet 650 MG PO (20:13)
[2022-01-20] MEDS: sennosides 8.6 mg Tablet 17.2 MG PO (20:14)
[2022-01-20] MEDS: insulin glargine 100 units/1 mL 15 UNIT SUBCUT (20:15)
[2022-01-20 20:38] LABS: Glucose Point of Care 223 mg/dL (70-110)
[2022-01-21] VITALS (14 sets, daily range): BP systolic 119–174; BP diastolic 68–92; PULSE 65–85; RESP 16–18; TEMP 36.4–36.8; O2SAT 90–94
[2022-01-21] MEDS: vancomycin 1,250 MG/250 ML PIGGYBACK 200 MG IV ×3 (01:20→18:27)
[2022-01-21] MEDS: acetaminophen 325 mg Tablet 650 MG PO ×2 (03:18→20:54)
[2022-01-21] MEDS: oxyCODONE-APAP 5-325 mg Tablet 1 TAB PO ×2 (05:00→23:57)
[2022-01-21] MEDS: piperacillin-tazobactam 3.375 GM in sodium chloride 0.9% (plus) 50 ML IV ×3 (05:02→21:24)
[2022-01-21 05:14] LABS: C Reactive Protein 92.8 mg/L (0.0-4.9)
[2022-01-21 05:16] LABS: Basophils # 0.1 10^3/uL (0.0-0.1); Basophils % 1.1 %; Eosinophils # 0.8 10^3/uL (0.0-0.8); Eosinophils % 6.9 %; Hematocrit 37.2 % (37.0-47.0); Hemoglobin 10.9 g/dL (11.5-15.3); Lymphocytes # 1.9 10^3/uL (0.8-4.8); Mean Corpuscular HGB Conc 29.3 g/dL (30.0-36.0); Mean Corpuscular Hemoglobin 25.1 pg (28.0-34.0); Mean Corpuscular Volume 85.7 fl (81-99); Mean Platelet Volume 9.4 fL (7.4-10.4); Monocytes # 0.7 10^3/uL (0.2-0.9); Monocytes % 6.5 %; Neutrophils # 7.41 10^3/uL (1.8-7.7); Nucleated Red Blood Cells % 0 %; Platelet Count 344 10^3/cmm (130-400); Red Blood Count 4.34 10^6/uL (4.1-5.3); Red Cell Distribution Width 14.7 % (12.1-15.1); White Blood Count 11.2 10^3/uL (4.0-10.0)
[2022-01-21 05:18] LABS: Slide Review Slide Review Perform
[2022-01-21 06:19] LABS: Glucose Point of Care 219 mg/dL (70-110)
--- NOTE | 2022-01-21 07:48 | PM.DCS ---
Discharge Providers Date of Admission: 01/14/22 13:37 Date of Discharge: January 21, 2022 Attending Provider at Admission: Lety Awan MD Attending Provider at Discharge: Demetrice Denton MD Primary Care Provider: CYNDI Casas Diagnoses at Discharge Discharge Diagnosis (1) Anxiety and depression: Status: Chronic (2) Chronic GERD: Status: Chronic (3) Cellulitis of labia majora: Status: Acute (4) BMI 50.0-59.9, adult: Status: Chronic Reason for Visit Reason for Visit: Sent by nazia/[facility] Course Hospital Course Patient was admitted on 01/14 for management of cellulitis of left labia majora, there were no signs of Ese's gangrene or purulence at the time of admission she was kept on vancomycin and Zosyn and received 3 doses of clindamycin for toxin suppression, her leukocytosis fluctuated between 14-17,000, she remained afebrile cultures negative to date, after 72 hours she started having purulent drainage just below her left labia majora, Dr. Coombs did I&D on 01/20, she remained hemodynamically stable, she will be discharged home on doxycycline 2-week regimen with every day dressing change if its very difficult then can opt for every other day packing changes with half-inch plain packing covered with 4 x 4 and ABD until wound can longer be packed and then follow-up within [address] Coombs. I will also give her referral for wound care. We could not set up home health services for her because she lives alone and there is no one to be educated at home with her. She is getting opioids, bowel regimen and doxycycline. She has remained hypertensive I will add lisinopril 30 mg along her hydrochlorothiazide, Coreg. She does have history of COPD there was no acute exacerbation during hospitalization. White count at the time of admission 23,000, white count at the time of discharge 11,000. Cultures negative to date, afebrile. Physical Exam Narrative: Awake and alert Nonfocal neuro exam Doing well on 1.5 L Abdomen soft I&D done with packing, left labia majora with less erythema, no signs of Ese's gangrene, no crepitation, S1, S2 Awake and alert ? Discharge Data Studies Completed and Pending Completed Studies During Hospitalization Category Date Time Status CT abdomen pelvis w con* [id number] Stat Cat Scan 01/14/22 12:[address] pelvis w con* [id number] Stat Cat Scan 01/19/22 07:12 Completed Pending at discharge Category Date Time Status Abscess Culture and Gram Stain Routine Lab 01/20/22 08:38 Received Anaerobic Culture Routine Lab 01/20/22 08:38 Received Wound Culture and Gram Stain Stat Lab 01/19/22 Results Radiology Impressions Abdomen/Pelvis CT 01/14/22 12:00 IMPRESSION: 1. Extensive cellulitis and inflammatory changes within the LEFT perineum centered around the labia. No definite abscess is identified. 2. Bilateral benign adrenal adenomas. 3. Marked hepatomegaly and hepatic steatosis. 4. Prior cholecystectomy. 5. Normal appendix. Pelvis CT 01/19/22 07:12 IMPRESSION: 1. Perineal skin thickening noted concerning for cellulitis. Fat stranding in the perineal, mons pubis, and left medial gluteal region. The entirety of the mons pubis region is not included in the field of view. No abscess identified within the field of view. 2. Bilateral inguinal lymphadenopathy increased in size compared to prior exam. 3. Hepatic steatosis. Laboratory Results WBC 11.2 10^3/uL (4.0-10.0) H 01/21/22 04:23 Corrected WBC Cancelled 01/15/22 02:14 RBC 4.34 10^6/uL (4.1-5.3) 01/21/22 04:23 Hgb 10.9 g/dL (11.5-15.3) L 01/21/22 04:23 Hct 37.2 % (37.0-47.0) 01/21/22 04:23 MCV 85.7 fl (81-99) 01/21/22 04:23 MCH 25.1 pg (28.0-34.0) L 01/21/22 04:23 MCHC 29.3 g/dL (30.0-36.0) L 01/21/22 04:23 RDW 14.7 % (12.1-15.1) 01/21/22 04:23 Plt Count 344 10^3/cmm (130-400) 01/21/22 04:23 MPV 9.4 fL (7.4-10.4) 01/21/22 04:23 Gran % Cancelled 01/15/22 02:14 Neut % (Auto) 66.0 % 01/21/22 04:23 Lymph % (Auto) 17.0 % 01/21/22 04:23 Bureau % (Auto) 6.5 % 01/21/22 04:23 Eos % (Auto) 6.9 % 01/21/22 04:23 Baso % (Auto) 1.1 % 01/21/22 04:23 Neut # (Auto) 7.41 10^3/uL (1.8-7.7) 01/21/22 04:23 Lymph # (Auto) 1.9 10^3/uL (0.8-4.8) 01/21/22 04:23 Bureau # (Auto) 0.7 10^3/uL (0.2-0.9) 01/21/22 04:23 Eos # (Auto) 0.8 10^3/uL (0.0-0.8) 01/21/22 04:23 Baso # (Auto) 0.1 10^3/uL (0.0-0.1) 01/21/22 04:23 Absolute Gran (auto) Cancelled 01/15/22 02:14 Nucleated RBC % (auto) 0 % 01/21/22 04:23 Nucleated RBCs # 0.0 /100WBC 01/21/22 04:23 PT 14.50 SECONDS (12.1-14.9) 01/15/22 02:14 INR 1.10 (0.8-1.2) 01/15/22 02:14 APTT 28.9 SECONDS (23.9-36.7) 01/15/22 02:14 Sodium 136 mmol/L (136-145) 01/20/22 05:00 Potassium 4.0 mmol/L (3.5-5.1) 01/20/22 05:00 Chloride 98 mmol/L (98-107) 01/20/22 05:00 Carbon Dioxide 33 mmol/L (22-29) H 01/20/22 05:00 Anion Gap 9.0 (5-19) 01/20/22 05:00 BUN 7 mg/dL (6-20) 01/20/22 05:00 Creatinine 0.5 mg/dL (0.5-0.9) 01/20/22 05:00 GFR Calculation 131.7 mL/min (90-130) H 01/20/22 05:00 Glucose 200 mg/dL (65-115) H 01/20/22 05:00 POC Glucose 219 mg/dL (70-110) H 01/21/22 06:14 Estimat Average Glucose 312 01/15/22 02:14 Hemoglobin A1c 12.5 % (4.0-6.0) H 01/15/22 02:14 Calculated Osmolality 286 mOsm/kg (285-295) 01/20/22 05:00 Lactic Acid 0.7 mmol/L (0.5-2.2) 01/15/22 02:14 Lactate 0.7 mmol/L (0.5-2.2) 01/16/22 07:45 Calcium 9.2 mg/dL (8.5-10.5) 01/20/22 05:00 Phosphorus 2.9 mg/dL (2.5-4.5) 01/15/22 02:14 Magnesium 1.8 mg/dL (1.7-2.3) 01/15/22 02:14 Total Bilirubin 0.3 mg/dL (0.15-1.2) 01/16/22 07:45 AST 17 U/L (0-32) 01/16/22 07:45 ALT 23 U/L (0-33) 01/16/22 07:45 Alkaline Phosphatase 101 U/L (35-105) 01/16/22 07:45 C-Reactive Protein 92.8 mg/L (0.0-4.9) H 01/21/22 04:23 Total Protein 6.7 g/dL (6.6-8.7) 01/16/22 07:45 Albumin 2.9 g/dL (3.5-5.2) L 01/16/22 07:45 Globulin 3.8 g/dL (1.3-4.6) 01/16/22 07:45 Urine Color Yellow (Yellow) 01/14/22 13:42 Urine Appearance Clear (CLEAR) 01/14/22 13:42 Urine pH 5 (5-7) 01/14/22 13:42 Ur Specific [place] 1.005 (1.005-1.030) 01/14/22 13:42 Urine Protein Neg (Negative) 01/14/22 13:42 Urine Glucose (UA) 4+ (Normal) H 01/14/22 13:42 Urine Ketones 1+ (Negative) H 01/14/22 13:42 Urine Blood Neg (Negative) 01/14/22 13:42 Urine Nitrate Negative (Negative) 01/14/22 13:42 Urine Bilirubin Neg (Negative) 01/14/22 13:42 Urine Urobilinogen Norm mg/dL (Negative) 01/14/22 13:42 Ur Leukocyte Esterase Trace (Negative) H 01/14/22 13:42 Urine RBC None /hpf (0-2) 01/14/22 13:42 Urine WBC Rare /hpf (0-5) 01/14/22 13:42 Ur Squamous Epith Cells 0-4 /hpf (0-5) H 01/14/22 13:42 Amorphous Sediment Not Reportable 01/14/22 13:42 Urine Bacteria Trace /hpf (NONE) 01/14/22 13:42 Vancomycin Trough 13.6 ug/mL (10-15) 01/19/22 16:09 Vitals Last Vital Signs Temp 98.2 F 01/21/22 04:00 Pulse 65 01/21/22 06:00 Resp 17 01/21/22 05:00 BP 119/68 01/21/22 04:00 Pulse Ox 93 01/21/22 04:00 O2 Del Method 01/20/22 20:14 O2 Flow Rate 4 01/20/22 20:00 Discharge Plan Discharge Patient Disposition: Home Condition: Stable Prescriptions: New oxycodone-acetaminophen 7.5-325 mg tablet 1 tab PO Q8H PRN (Reason: pain) Qty: 20 0RF sennosides-docusate sodium [Stool Softener-Laxative] 8.6-50 mg Tablet 1 tab PO BID Qty: 30 0RF doxycycline hyclate 100 mg tablet 100 mg PO BID 14 Days Qty: 28 0RF lisinopril 30 mg tablet 30 mg PO DAILY Qty: 90 3RF Continued pantoprazole 40 mg tablet,delayed release (DR/EC) 40 mg PO QDAY Qty: 30 0RF fluticasone propion-salmeterol [Advair Diskus] 250-50 mcg/dose blister with device 1 inh INHALATION BID Qty: 60 0RF montelukast [Singulair] 10 mg tablet 10 mg PO DAILY gabapentin 100 mg capsule 100 mg PO TID Farxiga 10 mg tablet 10 mg PO DAILY albuterol sulfate 90 mcg/actuation HFA aerosol inhaler 2 inh INHALATION Q4H PRN (Reason: shortness of breath or wheezing) Qty: 18 0RF Excedrin Aspirin Free 500-65 mg Tablet 1 tab PO Q12H PRN (Reason: Pain) ibuprofen 200 mg Tablet 800 mg PO BID PRN (Reason: Pain) metformin 500 mg tablet 500 mg PO BID carvedilol 12.5 mg tablet 12.5 mg PO BID PRN (Reason: High blood pressure) hydrochlorothiazide 25 mg Tablet 25 mg PO DAILY PRN (Reason: high blood pressure) Discharge Orders: Discharge Order (Routine); Ordered 01/21/22 Ordered By: Demetrice Denton Referrals: Todd Zuleta DO [Physician] - 01/29/22 8:00 am Xavier Coombs DO [Physician] - 2 weeks [facility], [Staff Physician] - 1-3 days Patient Instructions: Hypertension, Chronic Lung Disease and Infection Prevention (DC), Opioid Safety Patient's Health Concerns: You can do every day dressing change if its very difficult then you can opt for every other day packing changes with half-inch plain packing covered with 4 x 4 and ABD until wound can longer be packed and then follow-up within [address] Coombs If anticoagulants along bowel regimen to avoid constipation Please take 14 days of antibiotics You can also follow-up with wound care Discharge Attestations Time Spent in Discharge Care*: less than 30 min Quality Metrics Clinical Quality Measures [ No reported AMI, CVA or VTE this stay] Coding Level of Care Code Acute Chg FW DC note Diagnoses Anxiety and depression F41.9; F32.9 Chronic GERD K21.9 Cellulitis of labia majora N76.2 BMI 50.0-59.9, adult Z68.43
[2022-01-21] MEDS: insulin lispro 100 unit/1 mL SUBCUT ×4 (08:50→20:53)
[2022-01-21] MEDS: cetirizine 10 mg Tablet PO (08:51)
[2022-01-21] MEDS: sennosides-docusate Tablet 1 TAB PO ×2 (08:51→18:24)
[2022-01-21] MEDS: lactobacillus 1 Tablet 1 TAB PO ×2 (08:51→18:23)
[2022-01-21] MEDS: pantoprazole DR 40 mg Tablet PO (08:52)
[2022-01-21] MEDS: gabapentin 100 mg Capsule PO ×3 (08:52→20:53)
[2022-01-21] MEDS: docusate sodium 100 mg Capsule PO ×2 (08:52→18:24)
[2022-01-21] MEDS: montelukast sodium 10 mg Tablet PO (08:52)
[2022-01-21] MEDS: lisinopril 20 mg Tablet PO (08:52)
--- NOTE | 2022-01-21 10:05 | P.PN_ITS ---
Subjective Subjective: Patient requesting [facility] placement center going home Vitals/I&O/Wt Last Vital Signs Temp 98.2 F 01/22/22 07:33 Pulse 73 01/22/22 08:05 Resp 17 01/22/22 08:05 BP 165/84 01/22/22 07:33 Pulse Ox 94 01/22/22 08:05 O2 Del Method 01/22/22 08:05 O2 Flow Rate 2 01/22/22 08:05 01/21/22 01/22/22 01/22/22 22:59 06:59 14:59 Intake Total 1660 / 2450 300 / 2750 410 / 410 Balance 1660 / 2450 300 / 2750 410 / 410 Physical Exam Narrative: Awake and alert Nonfocal neuro exam Doing well on 1.5 L Abdomen soft I&D done with packing, left labia majora with less erythema, no signs of Ese's gangrene, no crepitation, S1, S2 Awake and shannan Data : 01/21/22 04:23 01/20/22 05:00 Micro: Microbiology 01/20/22 08:38 Gram Stain - Final Vaginal Anaerobic Culture - Preliminary Abscess Culture - Preliminary Coag positive Staphylococcus 01/19/22 Unknown Gram Stain - Final Vaginal Wound Culture - Preliminary Coag positive Staphylococcus A&P Assessment and plan (1) Cellulitis of labia majora: Plan Patient requesting [facility] placement manager installation updated me after she was discharged with plan to go home with home health Attestations Medical Necessity Statement*: group home placement Coding Level of Care Code Acute Tableau Analyst for [facility] Fwd Diagnoses Cellulitis of labia majora N76.2
[2022-01-21 11:04] LABS: Glucose Point of Care 227 mg/dL (70-110)
[2022-01-21] MEDS: HYDROmorphone 1 mg/mL INJ 1 mL IVP ×2 (12:31→17:26)
[2022-01-21 17:16] LABS: Glucose Point of Care 187 mg/dL (70-110)
[2022-01-21 20:42] LABS: Glucose Point of Care 293 mg/dL (70-110)
[2022-01-21] MEDS: insulin glargine 100 units/1 mL 15 UNIT SUBCUT (20:53)
[2022-01-21] MEDS: sennosides 8.6 mg Tablet 17.2 MG PO (20:53)
[2022-01-21] MEDS: famotidine 20 mg/2 mL INJ IVP (21:38)
[2022-01-22] VITALS (7 sets, daily range): BP systolic 162–189; BP diastolic 84–94; PULSE 64–79; RESP 17–18; TEMP 36.6–36.8; O2SAT 92–94
[2022-01-22] MEDS: vancomycin 1,250 MG/250 ML PIGGYBACK 200 MG IV ×2 (02:14→10:03)
[2022-01-22] MEDS: piperacillin-tazobactam 3.375 GM in sodium chloride 0.9% (plus) 50 ML IV (04:36)
[2022-01-22 06:46] LABS: Glucose Point of Care 159 mg/dL (70-110)
[2022-01-22] MEDS: oxyCODONE-APAP 5-325 mg Tablet 1 TAB PO (07:24)
[2022-01-22] MEDS: montelukast sodium 10 mg Tablet PO (08:40)
[2022-01-22] MEDS: gabapentin 100 mg Capsule PO (08:40)
[2022-01-22] MEDS: nystatin powder 15 gm Btl 1 APPLIC TOPICAL (08:40)
[2022-01-22] MEDS: cetirizine 10 mg Tablet PO (08:40)
[2022-01-22] MEDS: docusate sodium 100 mg Capsule PO (08:40)
[2022-01-22] MEDS: lactobacillus 1 Tablet 1 TAB PO (08:40)
[2022-01-22] MEDS: pantoprazole DR 40 mg Tablet PO (08:41)
[2022-01-22] MEDS: amlodipine 10 mg Tablet PO (08:41)
[2022-01-22] MEDS: sennosides-docusate Tablet 1 TAB PO (08:41)
[2022-01-22] MEDS: lisinopril 20 mg Tablet PO (08:41)
[2022-01-22] MEDS: insulin lispro 100 unit/1 mL SUBCUT (08:44)
--- NOTE | 2022-01-22 10:08 | P.PN_ITS ---
Subjective Subjective: We are trying to arrange appropriate disposition Patient wants intermediate placement she can take care of her wound dressing at home Vitals/I&O/Wt Last Vital Signs Temp 98.2 F 01/22/22 07:33 Pulse 73 01/22/22 08:05 Resp 17 01/22/22 08:05 BP 165/84 01/22/22 07:33 Pulse Ox 94 01/22/22 08:05 O2 Del Method 01/22/22 08:05 O2 Flow Rate 2 01/22/22 08:05 01/21/22 01/22/22 01/22/22 22:59 06:59 14:59 Intake Total 1660 / 2450 300 / 2750 410 / 410 Balance 1660 / 2450 300 / 2750 410 / 410 Physical Exam Narrative: Patient lying supine Awake and alert Nonfocal neuro exam Currently on 1 L Abdomen soft Her vulvar exam was not done today She is watching television Nonfocal neuro exam S1, S2 No audible stridor or wheezing Data : 01/21/22 04:23 01/20/22 05:00 Micro: Microbiology 01/20/22 08:38 Gram Stain - Final Vaginal Anaerobic Culture - Preliminary Abscess Culture - Preliminary Coag positive Staphylococcus 01/19/22 Unknown Gram Stain - Final Vaginal Wound Culture - Preliminary Coag positive Staphylococcus A&P Assessment and plan (1) Cellulitis of labia majora: Plan Awaiting placement Continue antibiotics No signs of sepsis Afebrile Attestations Medical Necessity Statement*: Awaiting placement Time Spent in Patient Care: 15 Coding Level of Care Code Acute Emblem Cutter for [facility] Diagnoses Cellulitis of labia majora N76.2
[2022-01-22 16:11] LABS: Glucose Point of Care 240 mg/dL (70-110)
== END 2022-01-22 16:38 | disposition home or self-care (01) | DRG 746 ==
LOC: ER 13:25 → MEDSURG 14:04
PROVIDERS: Surgery; Admitting Provider Hospitalist; Emergency Provider Family Medicine; PCP Registered Nurse; Visit Provider Internal Medicine
PROC: 0U9M0ZZ Drainage of Vulva, Open Approach (ICD-10-PCS; principal; 2022-01-20 08:00)
DX: N76.2 Acute vulvitis (principal); L02.818 Cutaneous abscess of other sites; Z68.43 Body mass index [BMI] 50.0-59.9, adult; N76.4 Abscess of vulva; J43.1 Panlobular emphysema; K21.9 Gastro-esophageal reflux disease without esophagitis; I10 Essential (primary) hypertension; E11.65 Type 2 diabetes mellitus with hyperglycemia; E66.01 Morbid (severe) obesity due to excess calories; E11.40 Type 2 diabetes mellitus with diabetic neuropathy, unspecified; K04.7 Periapical abscess without sinus; K02.9 Dental caries, unspecified; F41.9 Anxiety disorder, unspecified; F32.A Depression, unspecified; F17.210 Nicotine dependence, cigarettes, uncomplicated; Z91.14 Patient's other noncompliance with medication regimen; Z79.84 Long term (current) use of oral hypoglycemic drugs
CPT/HCPCS: 36415; 36416; 72193; 74177; 80048; 80053; 80202; 81001; 82962; 83036; 83605; 83735; 84100; 85025; 85610; 85730; 86140; 87040; 87070; 87075; 87077; 87186; 87205; 87641; 94640; 94664; 96365; 96372; 96375; 99285; J0330; J1170; J1200; J1815; J1885; J2250; J2270; J2405; J2543; J2704; J3010; J3370; J3490; J7030; J7050; Q9967

== ENCOUNTER → 2022-02-01 08:59 | Outpatient (BNVA) | payer MEDICAID, SELFPAY | PROVIDERS: PCP Family Medicine; Visit Provider Surgery | DX: Z48.89 Encounter for other specified surgical aftercare (principal) | CPT/HCPCS: 99203 ==

== ENCOUNTER 2022-02-08 12:49 | Outpatient (RCR) | payer MEDICAID, SELFPAY ==
[2022-01-23 11:45] VITALS: BP 219/119; PULSE 79; RESP 18; TEMP 36; O2SAT 93
--- NOTE | 2022-01-23 12:00 | PC.NURSE ---
Pt to GI lab for dressing change of left labia and left pannus wound. Packing to left pannus removed. Wound irrigated with saline, packed with 1/2 in [place]ug[place] and covered with maternity pad. Left labia wound had no packing evident. Wound irrigated with saline, packed with 1/4 [place]ug[place]ze and covered with maternity pad. Mesh underwear used to keep in place. Pt tolerated fair. Instructed pt to take pain meds approx 1 hour before coming in for dressing change.
[2022-01-25 10:00] VITALS: BP 213/111; PULSE 80; RESP 18; TEMP 36.1; O2SAT 97
--- NOTE | 2022-01-25 10:00 | PC.NURSE ---
Pt to GI lab for dressing changes. No packing noted in left pannus wound or left labia wound. Pt states the packing came out yesterday. Maternity pad in place for drainage. Pt states wounds are draining minimally. Left pannus wound irrigated with saline, packed with 1/4 in [place]ug[place]ze and covered with 2x2 and 4x4 optifoam. Left labia wound irrigated with saline, packed with 1/4 in [place]ze and covered with maternity pad to catch drainage. Pt tolerated fair. Stated she did take her pain meds prior to coming for dressing change and it did help. States wounds are a little more tender today than yesterday. No excessive redness, warmth, foul odor, or purulent drainage noted.
[2022-01-28 12:20] VITALS: BP 177/95; PULSE 88; RESP 18; TEMP 36.4; O2SAT 92
--- NOTE | 2022-01-28 12:30 | PC.NURSE ---
Pt to GI lab for dressing change. No packing noted in left labia wound. Pt states it fell out over the weekend. Left labia noted to be have decreased swelling and redness compared to Friday. Wound was 4 cm in depth on Friday and noted at 1.5 cm in depth today. Attempted to pack labia wound with 1/4 in [place]ug[place]ze, but when pt got up to change, packing fell out. Wound to left pannus less tender today. Large amount of serosanguenous/yellow drainage noted under optifoam dressing. Packing remained in place over weekend. Packing removed. Both wounds irrigated with saline. Pannus wound with slight maceration around wound due to drainage sitting against skin. Pannus wound packed with 1/4 in Nugauze, covered with 3 2x2's and secured with Medipore tape. Labia wound left with maternity pad in place for drainage. Pt states labia wound did not drain over weekend. Tolerated dressing changes much better today. Pt reports wounds are less painful today.
[2022-01-30 12:15] VITALS: BP 126/88; PULSE 94; RESP 18; TEMP 36.1; O2SAT 90
--- NOTE | 2022-01-30 12:20 | PC.NURSE ---
Pt to GI lab for dressing change to left labia and pannus wounds. Quarter sized amount of drainage noted on pannus wound dressing. Labia wound open to air. No drainage noted. Pt concerned that left labia remains slightly hard feeling. Left labia without redness, drainage, or warmth. Wound depth 0.5 cm. Wound irrigated with saline and left open to air. Pannus wound irrigated with saline, packed with 1/4 in Nugauze and secured with 4x4 and Optifoam dressing. Pt tolerated well. States minimal pain associated with dressing changes.
[2022-02-01 12:30] VITALS: BP 97/54; PULSE 96; RESP 18; TEMP 36.1; O2SAT 90
--- NOTE | 2022-02-01 12:30 | PC.NURSE ---
Pt to GI lab for dressing change to pannus. Labia wound open to air. Depth remains at 0.5 cm. No drainage noted. Labia less firm today. Labia wound cleansed with saline and left open to air. Pannus wound with quarter sized drainage noted on Optifoam dressing. Packing removed. Wound irrigated with saline. Depth at 1.0 cm. Packed with Nugauze and covered with 4x4's and Medipore tape. Pt tolerated well.
[2022-02-04 12:30] VITALS: BP 145/89; PULSE 96; RESP 18; TEMP 36.2; O2SAT 93
--- NOTE | 2022-02-04 12:30 | PC.NURSE ---
Pt to GI lab for dressing change. Left labia wound noted to be healed. Left pannus wound with small amount old serosang drainage noted on 4x4. Packing removed. Wound irrigated with NS. Depth noted at 0.9 cm. Covered with 2x2 optifoam. Pt tolerated well.
[2022-02-06 12:00] VITALS: BP 146/96; PULSE 97; RESP 18; TEMP 36.1; O2SAT 93
--- NOTE | 2022-02-06 12:00 | PC.NURSE ---
Pt to GI lab for dressing change. Left labia wound remains healed. Wound to left pannus much improved. Area cleaned with saline. Depth noted at 0.4. Covered with telfa and tape. No redness, warmth, or excessive drainage noted. Pt tolerated well.
[2022-02-08 12:45] VITALS: BP 150/94; PULSE 116; RESP 18; TEMP 36.1; O2SAT 92
--- NOTE | 2022-02-08 12:45 | PC.NURSE ---
Wound to left pannus healed. Wound to left labia remains healed. No further wound care required.
== END 2022-02-18 23:59 | disposition home or self-care (01) ==
LOC: GILAB 12:49
PROVIDERS: PCP Family Medicine; Visit Provider Surgery
DX: N76.2 Acute vulvitis (principal)
CPT/HCPCS: 99212

== ENCOUNTER → 2022-07-09 09:19 | Outpatient (BNVA) | payer MEDICAID, SELFPAY | PROVIDERS: PCP Family Medicine; Visit Provider Family Medicine | DX: E11.9 Type 2 diabetes mellitus without complications (principal); I10 Essential (primary) hypertension; J44.9 Chronic obstructive pulmonary disease, unspecified; K21.9 Gastro-esophageal reflux disease without esophagitis; N92.6 Irregular menstruation, unspecified; N93.9 Abnormal uterine and vaginal bleeding, unspecified; M62.838 Other muscle spasm; R11.0 Nausea; R19.8 Other specified symptoms and signs involving the digestive system and abdomen; Z79.4 Long term (current) use of insulin | CPT/HCPCS: 80053; 80061; 81003; 83036; 84443; 85025 ==

== ENCOUNTER → 2022-10-29 10:27 | Outpatient (BNVA) | payer MEDICAID, SELFPAY | PROVIDERS: PCP Family Medicine; Visit Provider Surgery | DX: R10.32 Left lower quadrant pain (principal); K21.9 Gastro-esophageal reflux disease without esophagitis | CPT/HCPCS: 99203; 99214 ==

== ENCOUNTER 2022-12-18 09:09 | Day surgery (SDC) | payer MEDICAID, SELFPAY ==
[2022-12-16 08:14] VITALS: BMI 52.6
[2022-12-18 09:36] VITALS: BP 155/85; PULSE 78; RESP 18; TEMP 36.2; O2SAT 95
[2022-12-18] MEDS: sodium chloride 0.9% 1,000 ML 30 ML IV (09:45)
[2022-12-18 09:51] LABS: Glucose Point of Care 201 mg/dL (70-110)
--- NOTE | 2022-12-18 10:21 | ANES.PREANE2 ---
Pre-Anesthetic Assessment Height/Weight: Height 1.6 m Weight 134.717 kg Temp Pulse Resp BP Pulse Ox O2 Del Method 97.2 F L 78 18 155/85 95 Room Air 12/18/22 09:36 12/18/22 09:36 12/18/22 09:36 12/18/22 09:36 12/18/22 09:36 12/18/22 09:36 Preop Diagnosis: abd pain Operation Date: 12/18/22 10:15 Proposed Procedures p [id number] egd [id number] colon R10.32 ,Z12.11, K21.9(Not Applicable) - DO timothy Dominguez Colonoscopy(Not Applicable) - Xavier Coombs DO Familial anesthetic complications: none Was Beta Ángela taken within 24 hours: N/A Was Clonidine taken within 24 hours: N/A Last intake: Intake Last Liquid Date 12/17/22 Last Liquid Time 23:58 Last Solid Date 12/16/22 Last Solid Time 18:00 Last Intake: 23:58 Social Tobacco and No alcohol 1ppd pack(s) per day 20+ pack years Exam alert, oriented x 3, clear to auscultation bilaterally and regular rate & rhythm Airway Submandibular: within normal limits Cervical ROM: within normal limits Mallampati: Class III Dentition: full (very poor multiple decayed and missing. Spoke with pt on risk of tooth damage with bite block ) Pulmonary Chronic Obstructive Pulmonary Disease, Exertional Dyspnea and Shortness of Breath CV/HEM Hypertension None reported Hepatic None reported GI Gastroesophageal Reflux Disease Metabolic Diabetes Mellitus (avg 150-250) and Morbid Obesity Musc/skel Lower Back Pain Neuropsych Anxiety and Depression Anesthetic Plan ASA status: 3 Anesthesia: MAC Risk of > 500 ml blood loss (7ml/kg in children): No Medications/Allergies Home Medications Medication Instructions Recorded Confirmed Last Taken Type acetaminophen-caffeine 500 mg-65 1 tab PO Q12H PRN Pain 01/14/22 12/18/22 12/17/22 History mg tablet blood sugar diagnostic (Accu-Chek #100 ea 01/21/22 12/16/22 12/16/22 Rx Yarely Plus test strips) lancets (Accu-Chek Fastclix Lancet #200 ea 01/21/22 12/16/22 12/16/22 Rx Drum) lisinopril 30 mg tablet 30 mg PO DAILY #90 tabs 01/21/22 12/18/22 12/16/22 Rx diabetic supplies, miscellan. #100 ea 02/11/22 12/16/22 12/16/22 Rx albuterol sulfate 90 mcg/actuation 2 inh inhalation Q4H PRN shortness 05/28/22 12/18/22 12/17/22 Rx aerosol inhaler of breath or wheezing #18 grams pantoprazole 40 mg tablet,delayed 40 mg PO BID #180 tabs 07/09/22 12/18/22 12/16/22 Rx release insulin glargine 100 unit/mL (3 25 unit (0.25 mL) SUBCUT QPM #15 mL 09/24/22 12/18/22 12/16/22 Rx mL) subcutaneous pen (Lantus Solostar U-100 Insulin) atorvastatin 10 mg tablet 10 mg PO DAILY 12/16/22 12/18/22 12/17/22 History bisacodyl 5 mg tablet,delayed 20 mg PO ONCE #4 tabs 12/16/22 12/18/22 12/17/22 Rx release (Dulcolax (bisacodyl)) cetirizine 10 mg tablet 10 mg PO DAILY PRN allergies 12/16/22 12/18/22 12/17/22 History dapagliflozin propanediol 5 mg 5 mg PO DAILY 12/16/22 12/18/22 12/17/22 History tablet (Farxiga) fluticasone 250 mcg-salmeterol 50 1 inh inhalation BID 12/16/22 12/18/22 12/17/22 History mcg/dose blistr powdr for inhalation (Advair Diskus) gabapentin 600 mg tablet 600 mg PO BID 12/16/22 12/18/22 12/16/22 History metformin 500 mg tablet 500 mg PO BID 12/16/22 12/18/22 12/16/22 History montelukast 10 mg tablet 10 mg PO QPM 12/16/22 12/18/22 12/16/22 History ondansetron HCl 8 mg tablet 8 mg PO Q8H PRN Nausea 12/16/22 12/18/22 1 Month Ago History ~11/17/22 polyethylene glycol 3350 17 238 g PO ONCE #238 grams 12/16/22 12/18/22 12/17/22 Rx gram/dose oral powder (Miralax) Allergies Allergy/AdvReac Type Severity Reaction Status Date / Time azithromycin Allergy ADR-Chest Verified 12/18/22 09:33 Pain prednisone Allergy ADR-Anxiety Verified 12/18/22 09:33 Current Medications Generic Name Dose Route Start Last Admin Trade Name Freq PRN Reason Stop Dose Admin Sodium Chloride 1,000 mls @ 30 mls/hr 12/18/22 09:30 12/18/22 09:45 Sodium Chloride 0.9% IV 12/19/22 09:29 30 mls/hr .Q24H MATILDE Administration PFSH Anesthesia Medical History (Updated 10/29/22 @ 11:51 by Xavier Coombs DO) Anxiety and depression BMI 50.0-59.9, adult Cellulitis of labia majora Chronic GERD COPD (chronic obstructive pulmonary disease) Diabetes mellitus, type II Essential hypertension 0 Infected dental carries Mass of adrenal gland Nicotine dependence, cigarettes, with unspecified nicotine-induced disorders Non compliance w medication regimen Surgical History Hx of cholecystectomy Family History Father Lung disease Family/Other Diabetes Mother , secondary to MVA in 40s No problems noted. Denies family history of Colon cancer Ovarian cancer Breast cancer Hypertension Uterine cancer Thyroid disease Stroke Social History Smoking and tobacco status: current every day smoker cigarettes Packs smoked per day: 0.5 Second hand smoke exposure: No Smoking risk assessment/counseling performed?: No Alcohol intake: never Desire information about alcohol rehabilitation?: No Counseling given: No Substance/Drug Use: current Substance/Drug use frequency: few times a week Other substance/drug use details: About once a week. Desire information about substance/drug rehabilitation?: No Counseling given: No Female Reproductive History Spontaneous abortions: No Data Anesthesia Cardiac Studies: No Data to Display
--- NOTE | 2022-12-18 10:25 | PM.HP ---
Providers/Chief Complaint Primary Care Provider: Todd Zuleta DO Chief Complaint: [id number] History of Present Illness Jennifer Dumont is a 47 year old female Medications/Allergies Home Medications Medication Instructions Recorded Confirmed Last Taken Type acetaminophen-caffeine 500 mg-65 1 tab PO Q12H PRN Pain 01/14/22 12/18/22 12/17/22 History mg tablet blood sugar diagnostic (Accu-Chek #100 ea 01/21/22 12/16/22 12/16/22 Rx Yarely Plus test strips) lancets (Accu-Chek Fastclix Lancet #200 ea 01/21/22 12/16/22 12/16/22 Rx Drum) lisinopril 30 mg tablet 30 mg PO DAILY #90 tabs 01/21/22 12/18/22 12/16/22 Rx diabetic supplies, miscellan. #100 ea 02/11/22 12/16/22 12/16/22 Rx albuterol sulfate 90 mcg/actuation 2 inh inhalation Q4H PRN shortness 05/28/22 12/18/22 12/17/22 Rx aerosol inhaler of breath or wheezing #18 grams pantoprazole 40 mg tablet,delayed 40 mg PO BID #180 tabs 07/09/22 12/18/22 12/16/22 Rx release insulin glargine 100 unit/mL (3 25 unit (0.25 mL) SUBCUT QPM #15 mL 09/24/22 12/18/22 12/16/22 Rx mL) subcutaneous pen (Lantus Solostar U-100 Insulin) atorvastatin 10 mg tablet 10 mg PO DAILY 12/16/22 12/18/22 12/17/22 History bisacodyl 5 mg tablet,delayed 20 mg PO ONCE #4 tabs 12/16/22 12/18/22 12/17/22 Rx release (Dulcolax (bisacodyl)) cetirizine 10 mg tablet 10 mg PO DAILY PRN allergies 12/16/22 12/18/22 12/17/22 History dapagliflozin propanediol 5 mg 5 mg PO DAILY 12/16/22 12/18/22 12/17/22 History tablet (Farxiga) fluticasone 250 mcg-salmeterol 50 1 inh inhalation BID 12/16/22 12/18/22 12/17/22 History mcg/dose blistr powdr for inhalation (Advair Diskus) gabapentin 600 mg tablet 600 mg PO BID 12/16/22 12/18/22 12/16/22 History metformin 500 mg tablet 500 mg PO BID 12/16/22 12/18/22 12/16/22 History montelukast 10 mg tablet 10 mg PO QPM 12/16/22 12/18/22 12/16/22 History ondansetron HCl 8 mg tablet 8 mg PO Q8H PRN Nausea 12/16/22 12/18/22 1 Month Ago History ~11/17/22 polyethylene glycol 3350 17 238 g PO ONCE #238 grams 12/16/22 12/18/22 12/17/22 Rx gram/dose oral powder (Miralax) Allergies Allergy/AdvReac Type Severity Reaction Status Date / Time azithromycin Allergy ADR-Chest Verified 12/18/22 09:33 Pain prednisone Allergy ADR-Anxiety Verified 12/18/22 09:33 PFSH Acute PFSH: Medical History (Updated 10/29/22 @ 11:51 by Xavier Coombs DO) Anxiety and depression BMI 50.0-59.9, adult Cellulitis of labia majora Chronic GERD COPD (chronic obstructive pulmonary disease) Diabetes mellitus, type II Essential hypertension 0 Infected dental carries Mass of adrenal gland Nicotine dependence, cigarettes, with unspecified nicotine-induced disorders Non compliance w medication regimen Surgical History Hx of cholecystectomy Family History Father Lung disease Family/Other Diabetes Mother , secondary to MVA in 40s No problems noted. Denies family history of Colon cancer Ovarian cancer Breast cancer Hypertension Uterine cancer Thyroid disease Stroke Social History Smoking and tobacco status: current every day smoker cigarettes Packs smoked per day: 0.5 Second hand smoke exposure: No Smoking risk assessment/counseling performed?: No Alcohol intake: never Desire information about alcohol rehabilitation?: No Counseling given: No Substance/Drug Use: current Substance/Drug use frequency: few times a week Other substance/drug use details: About once a week. Desire information about substance/drug rehabilitation?: No Counseling given: No Female Reproductive History: Spontaneous abortions: No Vitals/I&O/Wt Last Vital Signs Temp 97.2 F L 12/18/22 09:36 Pulse 78 12/18/22 09:36 Resp 18 12/18/22 09:36 BP 155/85 12/18/22 09:36 Pulse Ox 95 12/18/22 09:36 O2 Del Method Room Air 12/18/22 09:36 A&P Assessment and plan (1) Colon cancer screening: (2) Chronic GERD: Plan EGD Screening colonoscopy Attestations Medical Necessity Statement*: home Coding Level of Care Code Acute Code for Chg Fwd Diagnoses Colon cancer screening Z12.11 Chronic GERD K21.9
[2022-12-18 10:56] VITALS: BP 179/94; PULSE 97; RESP 16; TEMP 36.3; O2SAT 93
[2022-12-18 11:16] VITALS: BP 169/136; PULSE 86; RESP 22; O2SAT 96
--- NOTE | 2022-12-18 11:45 | ANE.PACU2 ---
Inpatient post-anesthesia follow up: Airway intact: Yes Vital signs: Temperature 97.3 F Pulse Rate 86 Respiratory Rate 22 Blood Pressure 169/136 Pulse Oximetry 96 Oxygen Delivery Me thod Room Air Oxygen Flow Rate Fraction of Inspir ed Oxygen Hydration adequate: Yes Nausea and vomiting: No Pain level: 1 Mental status: Baseline
== END 2022-12-18 11:45 | disposition home or self-care (01) ==
PROVIDERS: PCP Family Medicine; Visit Provider Surgery
PROC: 0DJ08ZZ Inspection of Upper Intestinal Tract, Via Natural or Artificial Opening Endoscopic (ICD-10-PCS; CPT 43235; principal; 2022-12-18 10:15)
PROC: 0DJD8ZZ Inspection of Lower Intestinal Tract, Via Natural or Artificial Opening Endoscopic (ICD-10-PCS; CPT 45378; 2022-12-18 10:15)
DX: Z12.11 Encounter for screening for malignant neoplasm of colon (principal); K21.9 Gastro-esophageal reflux disease without esophagitis; J44.9 Chronic obstructive pulmonary disease, unspecified; E11.9 Type 2 diabetes mellitus without complications; Z79.4 Long term (current) use of insulin; F17.210 Nicotine dependence, cigarettes, uncomplicated; D12.5 Benign neoplasm of sigmoid colon; E66.01 Morbid (severe) obesity due to excess calories; Z68.43 Body mass index [BMI] 50.0-59.9, adult
CPT/HCPCS: 36416; 43239; 45385; 82962; 88305; J2704; J7030

== ENCOUNTER → 2022-12-31 15:14 | Outpatient (BNVA) | payer MEDICAID, SELFPAY | PROVIDERS: PCP Family Medicine; Visit Provider Surgery | DX: Z09 Encounter for follow-up examination after completed treatment for conditions other than malignant neoplasm (principal) | CPT/HCPCS: 99213 ==

== ENCOUNTER 2023-01-15 07:41 | Outpatient (CLI) | payer MEDICAID, SELFPAY ==
--- NOTE | 2023-01-15 08:00 | NM_ITS ---
WS: [id number] NUCLEAR MEDICINE GASTRIC EMPTYING EXAMINATION HISTORY: GERD COMPARISON: None available. TECHNIQUE: The patient ingested a meal containing 1.0 mCi of Tc 99m sulfur colloid mixed with eggs. The patient was placed in supine position and imaging over the abdomen was performed for a total of 9 0 minutes. Computer acquisition with the region of interest placed over the stomach to evaluate gastr ic emptying half-time. Half-time to gastric emptying is estimated at 108 minutes. There is normal downsloping of emptying th roughout this examination. IMPRESSION: Normal gastric emptying time.
== END 2023-01-15 07:42 | disposition home or self-care (01) ==
LOC: RAD 07:42
PROVIDERS: PCP Family Medicine; Visit Provider Surgery
DX: K21.9 Gastro-esophageal reflux disease without esophagitis (principal)
CPT/HCPCS: 78264; A9541

== ENCOUNTER → 2023-01-29 17:00 | Outpatient (BNVA) | payer MEDICAID, SELFPAY | PROVIDERS: PCP Family Medicine; Visit Provider Surgery | DX: Z09 Encounter for follow-up examination after completed treatment for conditions other than malignant neoplasm (principal) | CPT/HCPCS: 99212 ==

== ENCOUNTER → 2023-03-10 13:49 | Outpatient (BNVA) | payer MEDICAID, SELFPAY | PROVIDERS: PCP Family Medicine; Visit Provider Family Medicine | DX: E11.42 Type 2 diabetes mellitus with diabetic polyneuropathy (principal); I10 Essential (primary) hypertension | CPT/HCPCS: 80053; 80061; 83036; 84443; 85025 ==

== ENCOUNTER 2023-05-26 13:26 | Outpatient (CLI) | payer MEDICAID, SELFPAY ==
--- NOTE | 2023-05-26 13:30 | CT_ITS ---
WS: [id number] CT ABDOMEN AND PELVIS WITH CONTRAST HISTORY: Abdominal pain, LEFT upper quadrant pain and vomiting. TECHNIQUE: Imaging performed of the abdomen and pelvis with IV contrast. Single phase imaging of the abdomen. Coronal and sagittal reformats are submitted. All CT scans at [facility] use at [facility] one of these dose optimization techniques: automated exposure control; mA and/or kV adjustment per patient size (includes targeted exams where dose is matched to clinical indication); or iterative re construction. IV CONTRAST: Omnipaque 350; 100 mL IV. Oral contrast: No DLP: 1259.03 mGy.cm COMPARISON: 01/19/2022 and 01/14/2022 Lower thorax: Lung bases are clear. Heart is normal size. No hiatal hernia. Liver/biliary system: Elongated liver extends 24.8 cm in length. No mass or bile duct dilatation. Mil d hepatic steatosis. No bile duct dilatation. Gallbladder: Status post cholecystectomy. Pancreas: Normal size pancreas and pancreatic duct. No adjacent inflammation. Spleen: Normal size spleen. No mass or infarct. Adrenal glands: Bilateral adrenal masses have been described since 10/13/2018. RIGHT adrenal gland fay sures 2.1 x 1.8 cm and stable. LEFT adrenal gland 2.6 x 1.8 cm and also stable. 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 Right kidney: Simple cyst lower pole. No renal obstruction. Left kidney: Normal. Aorta: Mild atherosclerosis with no aneurysm. Lymphadenopathy: None. Free fluid: None. GI tract: Stomach wall appears mildly prominent but cannot be further evaluated without oral contrast . No small bowel obstruction. Moderate constipation and increased fecal content. Normal appendix. No evidence for acute diverticulitis. Abdominal wall: There is mild soft tissue stranding consistent with cellulitis in the abdominal wall. Much improved since 01/19/2022. No fluid collection. Pelvis: No free fluid or adenopathy. Bones: Unremarkable. IMPRESSION: 1. Mild mucosal thickening throughout the stomach. No obstruction. No oral contrast was given for th is examination therefore additional evaluation of the stomach mucosa is very difficult. 2. No GI tract obstruction. 3. No adenopathy. 4. Bilateral adrenal gland masses are stable. 5. RIGHT renal cyst.
[2023-05-26] MEDS: iohexol 350 mg/mL 500 mL Btl (per mL) IV (13:51)
== END 2023-05-26 13:27 | disposition home or self-care (01) ==
PROVIDERS: PCP Family Medicine; Visit Provider Family Medicine
DX: R10.32 Left lower quadrant pain (principal); R11.2 Nausea with vomiting, unspecified; R10.12 Left upper quadrant pain; E27.9 Disorder of adrenal gland, unspecified; N28.1 Cyst of kidney, acquired
CPT/HCPCS: 74177; Q9967

== ENCOUNTER 2023-08-07 07:20 | Emergency (ER) | payer MEDICAID, SELFPAY ==
--- NOTE | 2023-08-07 07:29 | XR_ITS ---
WS: [id number] Exam: XR shoulder LT min 2V* [id number] Date/Time of Exam: 08/07/2023 7:29 AM Reason For Exam: pain No acute fracture or dislocation. Prominent soft tissue calcification along the greater tuberosity of the humerus suggesting calcific bursitis and/or tendinitis. IMPRESSION: 1. Soft tissue calcification suggesting calcific tendinitis and/or bursitis. The LEFT shoulder is oth erwise normal.
[2023-08-07 07:46] VITALS: BP 140/83; PULSE 92; RESP 18; TEMP 36.9; O2SAT 95; BMI 57.5
--- NOTE | 2023-08-07 08:13 | ED_ITS ---
HPI - Extremity Problem General: Chief complaint: Extremity Problem,Nontraumatic Stated complaint: left shoulder/arm pain Time Seen by Provider: 08/07/23 07:21 History of Present Illness: 47-year-old female presents emergency ro om with complaint of left shoulder pain with motion this been going on for the last several days he seemed to precipitate from an episode of heavy lifting moving boxes. No falls or injury. No previous surgery. It. No associated chest pain or shortness of breath. Her function on the shoulder has decreased significantly to where it is interfering with his ADLs. PFSH ED PFSH: Medical History Non compliance w medication regimen Cellulitis of labia majora BMI 50.0-59.9, adult Diabetes mellitus, type II 0 Infected dental carries Nicotine dependence, cigarettes, with unspecified nicotine-induced disorders COPD (chronic obstructive pulmonary disease) Essential hypertension Chronic GERD Mass of adrenal gland Anxiety and depression Surgical History Hx of cholecystectomy Family History Father Lung disease Family/Other Diabetes Mother , secondary to MVA in 40s No problems noted. Denies family history of Colon cancer Ovarian cancer Breast cancer Hypertension Uterine cancer Thyroid disease Stroke Social History Smoking and tobacco/nicotine status: current every day tobacco/nicotine user cigarettes Packs smoked per day: 0.5 Second hand smoke exposure: No Alcohol intake: never Substance/Drug Use: current Substance/Drug use frequency: few times a week Other substance/drug use details: About once a week. Female Reproductive History: Spontaneous abortions: No Physical Exam Extremity: OTHER: Exam quite limited due to pain. Limited flexion and abduction due to severe pain neurovascular is intact pain isolates to the shoulder. Course Vital Signs: Vital signs: Vital Signs Temperature 98.4 F 08/07/23 07:46 Pulse Rate 92 08/07/23 07:46 Respiratory Rate 18 08/07/23 07:46 Blood Pressure 140/83 08/07/23 07:46 Pulse Oximetry 95 08/07/23 07:46 Oxygen Delivery Me thod Room Air 08/07/23 07:46 MDM - Extremity (Nontraumatic) Medical Decision Making Suspect rotator cuff arthropathy there is some calcific tendinitis in the plain x-ray. Placed patient in a sling diclofenac as needed referral to orthopedics set up outpatient MRI through case management. Medical Records I reviewed the patient's medical records. Lab Data I reviewed the patient's lab results. All radiology interpretation(s) finalized by discharge Discharge Plan Discharge Patient Disposition: Home Clinical Impression: Rotator cuff arthropathy of left shoulder Condition: Stable Prescriptions: New diclofenac sodium 75 mg tablet,delayed release (DR/EC) 75 mg PO Q12H PRN (Reason: pain) Qty: 20 0RF No Action insulin glargine [Lantus Solostar U-100 Insulin] 100 unit/mL (3 mL) insulin pen 10 unit SUBCUT QPM Qty: 15 4RF Farxiga 5 mg tablet See Rx Instructions .ROUTE .COMPLEX Qty: 30 3RF Dose Instruction: TAKE 1 TABLET BY MOUTH EVERY DAY Rx Instructions: TAKE 1 TABLET BY MOUTH EVERY DAY bisacodyl [Dulcolax (bisacodyl)] 5 mg tablet,delayed release (DR/EC) 20 mg PO ONCE Qty: 4 0RF polyethylene glycol 3350 [Miralax] 17 gram/dose powder 238 g PO ONCE Qty: 238 0RF lisinopril 30 mg tablet 30 mg PO DAILY Qty: 90 3RF montelukast 10 mg tablet See Rx Instructions .ROUTE .COMPLEX Qty: 240 0RF Dose Instruction: TAKE 1 TABLET BY MOUTH EVERY DAY AT BEDTIME Rx Instructions: TAKE 1 TABLET BY MOUTH EVERY DAY AT BEDTIME albuterol sulfate [Ventolin HFA] 90 mcg/actuation HFA aerosol inhaler See Rx Instructions .ROUTE .COMPLEX Qty: 18 0RF Dose Instruction: INHALE TWO PUFFS BY MOUTH EVERY 4 HOURS as needed for SHORTNESS OF BREATH or wheezing Rx Instructions: INHALE TWO PUFFS BY MOUTH EVERY 4 HOURS as needed for SHORTNESS OF BREATH or wheezing cetirizine 10 mg tablet See Rx Instructions .ROUTE .COMPLEX Qty: 30 2RF Dose Instruction: TAKE 1 TABLET BY MOUTH EVERY DAY NEEDED FOR allergy symptoms Rx Instructions: TAKE 1 TABLET BY MOUTH EVERY DAY NEEDED FOR allergy symptoms pantoprazole 40 mg tablet,delayed release (DR/EC) See Rx Instructions .ROUTE .COMPLEX Qty: 180 2RF Dose Instruction: TAKE 1 TABLET BY MOUTH TWICE DAILY Rx Instructions: TAKE 1 TABLET BY MOUTH TWICE DAILY pregabalin [Lyrica] 100 mg capsule 100 mg PO BID Qty: 60 2RF fluticasone propion-salmeterol [Advair Diskus] 250-50 mcg/dose blister with device See Rx Instructions .ROUTE .COMPLEX Qty: 60 2RF Dose Instruction: INHALE 1 PUFF BY MOUTH TWICE DAILY Rx Instructions: INHALE 1 PUFF BY MOUTH TWICE DAILY ondansetron HCl 8 mg tablet See Rx Instructions .ROUTE .COMPLEX Qty: 60 2RF Dose Instruction: TAKE 1 TABLET BY MOUTH EVERY 8 HOURS NEEDED FOR nausea Rx Instructions: TAKE 1 TABLET BY MOUTH EVERY 8 HOURS NEEDED FOR nausea Trulicity 0.75 mg/0.5 mL pen injector See Rx Instructions .ROUTE .COMPLEX Qty: 2 2RF Dose Instruction: inject 0.75mg (0.5ml) SUBCUTANEOUSLY every week Rx Instructions: inject 0.75mg (0.5ml) SUBCUTANEOUSLY every week atorvastatin 10 mg tablet See Rx Instructions .ROUTE .COMPLEX Qty: 90 0RF Dose Instruction: TAKE ONE TABLET BY MOUTH EVERY DAY Rx Instructions: TAKE ONE TABLET BY MOUTH EVERY DAY (DME) pen needle, diabetic [TechLITE Pen Needle] 31 gauge x 3/16 needle See Rx Instructions .ROUTE .COMPLEX Qty: 100 0RF Dose Instruction: DIRECTED Rx Instructions: DIRECTED metformin 500 mg tablet See Rx Instructions .ROUTE .COMPLEX Qty: 180 0RF Dose Instruction: TAKE ONE TABLET BY MOUTH TWICE DAILY Rx Instructions: TAKE ONE TABLET BY MOUTH TWICE DAILY (DME) OneTouch Verio test strips Strip See Rx Instructions .ROUTE .COMPLEX Qty: 100 1RF Dose Instruction: CHECK SUGARS TWICE DAILY Rx Instructions: CHECK SUGARS TWICE DAILY (DME) lancets [OneTouch Delica Plus Lancet] 33 gauge misc See Rx Instructions .ROUTE .COMPLEX Qty: 100 1RF Dose Instruction: CHECK SUGARS TWICE DAILY Rx Instructions: CHECK SUGARS TWICE DAILY alcohol swabs [BD Alcohol Swabs] Pads, Medicated See Rx Instructions .ROUTE .COMPLEX Qty: 100 1RF Dose Instruction: USE TWICE DAILY Rx Instructions: USE TWICE DAILY acetaminophen-caffeine 500-65 mg Tablet 1 tab PO Q12H PRN (Reason: Pain) (DME) lancets [Accu-Chek Fastclix Lancet Drum] Misc See Rx Instructions .Route Qty: 200 3RF Rx Instructions: As directed Discharge Orders: Discharge ED (Routine); Ordered 08/07/23 Ordered By: Noé Moody Referrals: Todd Zuleta, [Primary Care Provider] - Discharge Diet: Usual diet Discharge Activity: Limit activity as instructed Patient Instructions: Opioid Safety, Pain Management Activity Restrictions/Additional Instructions: Thank you for choosing [facility] for your healthcare needs today. Please realize this is an emergency room and that we are providing you with a medical screening exam and this may not be complete and all inclusive of all the testing and or work up that you may need to determine your ailment or severity of your illness. It is very important that you follow up as instructed or that you return to the Emergency Department should you have concerns or if your condition changes or worsens in any way. You are seen today for pain in your left shoulder he had very limited range of motion on exam. There is some evidence of calcium deposit in the shoulder tendons. This is likely contributing to your shoulder pain. You were given diclofenac to use as needed as well as an arm sling case resolution specialist will make micha camposements for her to follow-up with orthopedics for definitive care options. Case management also set up an MRI of your left shoulder. Coding Level of Care Code ED Cyber Incident Handler for Louise Amaro
[2023-08-07 09:11] VITALS: BP 140/83; PULSE 84; RESP 17; O2SAT 94
[2023-08-07 09:14] VITALS: BP 140/83; PULSE 84; RESP 17; O2SAT 94
--- NOTE | 2023-08-07 21:39 | SUR.EXTENDED ---
Message sent to Ortho for follow up
--- NOTE | 2023-08-12 08:49 | DCPLANNER ---
outpatient order for MRI sent to Centralized scheduling
== END 2023-08-07 09:10 | disposition home or self-care (01) ==
PROVIDERS: Emergency Provider Family Medicine; PCP Family Medicine
DX: M12.812 Other specific arthropathies, not elsewhere classified, left shoulder (principal); Z79.85 Long-term (current) use of injectable non-insulin antidiabetic drugs; Z79.84 Long term (current) use of oral hypoglycemic drugs; Z79.4 Long term (current) use of insulin; F17.210 Nicotine dependence, cigarettes, uncomplicated; E11.9 Type 2 diabetes mellitus without complications; J44.9 Chronic obstructive pulmonary disease, unspecified; I10 Essential (primary) hypertension
CPT/HCPCS: 73030; 99283

== ENCOUNTER 2023-10-13 09:33 | Emergency (ER) | payer MEDICAID, SELFPAY ==
[2023-10-13 09:35] VITALS: BP 137/89; PULSE 80; RESP 16; TEMP 36.7; O2SAT 94; BMI 47.8
--- NOTE | 2023-10-13 09:44 | ECG_ITS ---
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 Measurements Intervals [place] Rate: 85 P: 49 FL: 171 QRS: 51 QRSD: 90 T: 39 QT: 359 QTc: 428 Interpretive Statements SINUS RHYTHM WITH SINUS ARRHYTHMIA LOW QRS VOLTAGE IN PRECORDIAL LEADS [QRS DEFLECTION < 1.0 mV IN CHEST LEADS] Compared to ECG 06/11/2018 14:29:45 No significant changes Electronically Signed On 10-13-2023 14:48:08 CDT by Ho Jordan M.D. [id number]
--- NOTE | 2023-10-13 09:58 | ED_ITS ---
HPI - Chest Pain 2 General: Chief Complaint: Chest Pain Stated Complaint: Pain in chest and back Time Seen by Provider: 10/13/23 09:44 History of Present Illness: 47-year-old female with a history of mor bid obesity, hypertension, diabetes and GERD who presents to the emergency room with worsening GERD symptoms, vomiting bile and chest pain. She says she always has abdominal issues and GERD issues. She is supposed to see a specialist but has not been able to get in. She says her friend forced her to come to the emergency room today. Review of Systems 2 Narrative: Constitutional symptoms: Negative except as documented in HPI. Skin symptoms: Negative except as documented in HPI. Eye symptoms: Negative except as documented in HPI. ENMT symptoms: Negative except as documented in HPI. Respiratory symptoms: Negative except as documented in HPI. Cardiovascular symptoms: Negative except as documented in HPI. Gastrointestinal symptoms: Negative except as documented in HPI. Genitourinary symptoms: Negative except as documented in HPI. Musculoskeletal symptoms: Negative except as documented in HPI. Neurologic symptoms: Negative except as documented in HPI. Psychiatric symptoms: Negative except as documented in HPI. Endocrine symptoms: Negative except as documented in HPI. PFSH ED 2 PFSH: Medical History Non compliance w medication regimen Cellulitis of labia majora BMI 50.0-59.9, adult Diabetes mellitus, type II 0 Infected dental carries Nicotine dependence, cigarettes, with unspecified nicotine-induced disorders COPD (chronic obstructive pulmonary disease) Essential hypertension Chronic GERD Mass of adrenal gland Anxiety and depression Surgical History Hx of cholecystectomy Family History Father Lung disease Family/Other Diabetes Mother , secondary to MVA in 40s No problems noted. Denies family history of Colon cancer Ovarian cancer Breast cancer Hypertension Uterine cancer Thyroid disease Stroke Social History Smoking and tobacco/nicotine status: current every day tobacco/nicotine user cigarettes Packs smoked per day: 0.5 Second hand smoke exposure: No Alcohol intake: never Substance/Drug Use: current Substance/Drug use frequency: few times a week Other substance/drug use details: About once a week. Female Reproductive History: Spontaneous abortions: No Physical Exam 2 Narrative: EXAM NARRATIVE: General: Alert, no acute distress. Skin: Warm, dry. Head: Normocephalic, atraumatic. Neck: Supple, trachea midline. Eye: Extraocular movements are intact. Ears, nose, mouth and throat: mucosa moist. Cardiovascular: Regular, Normal peripheral perfusion. Respiratory: Lungs are clear to auscultation, respirations are non-labored, breath sounds are equal, Symmetrical chest wall expansion. Gastrointestinal: Soft, Nontender, Non distended, Normal bowel sounds. Musculoskeletal: Normal ROM, no deformity. Neurological: Alert and oriented, No focal neurological deficit observed. Psychiatric: Cooperative, appropriate mood & affect. Course 2 Vital Signs: Vital signs: Vital Signs Temperature 98.1 F 10/13/23 09:35 Pulse Rate 82 10/13/23 12:16 Respiratory Rate 16 10/13/23 09:35 Blood Pressure 112/92 10/13/23 12:16 Pulse Oximetry 92 10/13/23 12:16 Oxygen Delivery Me thod Room Air 10/13/23 12:16 MDM - Chest Pain Medical Decision Making Differential diagnosis for patient with chest pain includes but is not limited to and based on the above HPI, review of systems and physical exam: Pneumonia. unstable angina. angina. Acute coronary syndrome / [place]. Pulmonary embolism. Costochondritis / musculoskeletal. Pleurisy. Pericarditis. Esophageal spasm. Pancreatis. Cholecystitis. Orders placed to evaluate differential diagnosis based on the above differential, HPI and physical exam EKG: Time 9:33 AM. Rate 85. Normal sinus rhythm, No ST-T changes, no ectopy, normal [place] & QRS intervals, This was reviewed and interpreted by myself the ER physician at 9:35 AM Repeat EKG: Time 11:38 AM rate 72. Normal sinus rhythm, No ST-T changes, no ectopy, normal [place] & QRS intervals, This was reviewed and interpreted by myself the ER physician at 11:42 AM. No significant changes from previous EKG Lab Review: Laboratory results were reviewed and interpreted by myself the emergency room physician. Mild leukocytosis with a white count 11.9. Hemoglobin 14.8. BUN and creatinine are 9 and 0.6. Serial troponins are negative I reviewed the patient's medical record. Prolonged emergency room stay: Stay over 2 hours secondary to trending a second troponin with chest pain to rule out acute coronary syndrome Reexamination: Patient says epigastric chest pain improved with a GI cocktail and Pepcid. She still having some back pain Assessment and plan: Abdominal pain -Pain in her abdomen improved with GI cocktail and Pepcid. Give her [place] here for back pain. Suggest she continue working with her PCP to get specialist follow-up for the pain in her abdominal wall. - Discharged home - Discussed plan with patient. Answered any questions. - Evaluation and treatment of this problem were appropriate in the emergency setting. Lab Data 10/13/23 10:20 10/13/23 10:20 Laboratory Results WBC 11.91 10^3/uL (3.29-11.43) H 10/13/23 10:20 RBC 5.90 10^6/uL (3.85-5.65) H 10/13/23 10:20 Hgb 14.80 g/dL (11.27-16.99) 10/13/23 10:20 Hct 46.7 % (36-47) 10/13/23 10:20 MCV 79.2 fl (85-98) L 10/13/23 10:20 MCH 25.1 pg (27-33) L 10/13/23 10:20 MCHC 31.7 g/dL (30-55) 10/13/23 10:20 RDW 16.8 % (12.1-15.1) H 10/13/23 10:20 Plt Count 323 10^3/cmm (157-399) 10/13/23 10:20 MPV 9.7 fL (7.4-10.4) 10/13/23 10:20 Neut % (Auto) 70.0 % 10/13/23 10:20 Lymph % (Auto) 17.3 % 10/13/23 10:20 [place] % (Auto) 4.8 % 10/13/23 10:20 Eos % (Auto) 6.3 % 10/13/23 10:20 Baso % (Auto) 1.3 % 10/13/23 10:20 Neut # (Auto) 8.35 10^3/uL (1.8-7.7) H 10/13/23 10:20 Lymph # (Auto) 2.1 10^3/uL (0.8-4.8) 10/13/23 10:20 [place] # (Auto) 0.6 10^3/uL (0.2-0.9) 10/13/23 10:20 Eos # (Auto) 0.8 10^3/uL (0.0-0.8) 10/13/23 10:20 Baso # (Auto) 0.2 10^3/uL (0.0-0.1) H 10/13/23 10:20 Nucleated RBC % (auto) 0 % 10/13/23 10:20 Nucleated RBCs # 0.0 /100WBC 10/13/23 10:20 Sodium 140 mmol/L (136-145) 10/13/23 10:20 Potassium 4.0 mmol/L (3.5-5.1) 10/13/23 10:20 Chloride 102 mmol/L (98-107) 10/13/23 10:20 Carbon Dioxide 26 mmol/L (22-29) 10/13/23 10:20 Anion Gap 16.0 (5-19) 10/13/23 10:20 BUN 9 mg/dL (6-20) 10/13/23 10:20 Creatinine 0.6 mg/dL (0.5-0.9) 10/13/23 10:20 GFR Calculation 106.3 mL/min (90-130) 10/13/23 10:20 Glucose 112 mg/dL (65-115) 10/13/23 10:20 Calculated Osmolality 289 mOsm/kg (285-295) 10/13/23 10:20 Calcium 9.5 mg/dL (8.5-10.5) 10/13/23 10:20 Total Bilirubin 0.3 mg/dL (0.15-1.2) 10/13/23 10:20 AST 14 U/L (0-32) 10/13/23 10:20 ALT 17 U/L (0-33) 10/13/23 10:20 Alkaline Phosphatase 89 U/L (35-105) 10/13/23 10:20 Troponin T Baseline 8 ng/L (0-10) 10/13/23 10:20 C-Reactive Protein 20.2 mg/L (0.0-4.9) H 10/13/23 10:20 Total Protein 7.1 g/dL (6.6-8.7) 10/13/23 10:20 Albumin 3.8 g/dL (3.5-5.2) 10/13/23 10:20 Globulin 3.3 g/dL (1.3-4.6) 10/13/23 10:20 Lipase 24 U/L (13-60) 10/13/23 10:20 Urine Color Yellow (Yellow) 10/13/23 11:05 Urine Appearance Clear (CLEAR) 10/13/23 11:05 Urine pH 6.5 (5-7) 10/13/23 11:05 Ur Specific Alicia 1.005 (1.005-1.030) 10/13/23 11:05 Urine Protein Neg (Negative) 10/13/23 11:05 Urine Glucose (UA) 4+ (Normal) H 10/13/23 11:05 Urine Ketones Negative (Negative) 10/13/23 11:05 Urine Blood Neg (Negative) 10/13/23 11:05 Urine Nitrate Negative (Negative) 10/13/23 11:05 Urine Bilirubin Neg (Negative) 10/13/23 11:05 Urine Urobilinogen Neg mg/dL (Negative) 10/13/23 11:05 Ur Leukocyte Esterase Negative (Negative) 10/13/23 11:05 Urine RBC None /hpf (0-2) 10/13/23 11:05 Urine WBC Rare /hpf (0-5) 10/13/23 11:05 Ur Squamous Epith Cells 0-4 /hpf (0-5) H 10/13/23 11:05 Amorphous Sediment Not Reportable 10/13/23 11:05 Urine Bacteria Trace /hpf (NONE) 10/13/23 11:05 No radiology studies performed this visit Discharge Plan Discharge Patient Disposition: Home Clinical Impression: Atypical chest pain, Abdominal pain Condition: Stable Prescriptions: New sucralfate [Carafate] 1 gram tablet 1 g PO TID 28 Days Qty: 84 0RF Rx Instructions: with meals famotidine 40 mg tablet 40 mg PO DAILY Qty: 7 0RF tramadol 50 mg tablet 50 mg PO Q8H PRN (Reason: pain) Qty: 20 0RF ondansetron 8 mg tablet,disintegrating 8 mg PO .q6 PRN (Reason: nausea and vomiting) Qty: 14 0RF diclofenac sodium 50 mg tablet,delayed release (DR/EC) 50 mg PO Q12H Qty: 20 0RF No Action lisinopril 30 mg tablet 30 mg PO DAILY Qty: 90 3RF (DME) OneTouch Verio test strips Strip See Rx Instructions .ROUTE .COMPLEX Qty: 100 1RF Dose Instruction: CHECK SUGARS TWICE DAILY Rx Instructions: CHECK SUGARS TWICE DAILY (DME) lancets [OneTouch Delica Plus Lancet] 33 gauge misc See Rx Instructions .ROUTE .COMPLEX Qty: 100 1RF Dose Instruction: CHECK SUGARS TWICE DAILY Rx Instructions: CHECK SUGARS TWICE DAILY (DME) pen needle, diabetic [TechLITE Pen Needle] 31 gauge x 3/16 needle See Rx Instructions .ROUTE .COMPLEX Qty: 100 4RF Dose Instruction: DIRECTED Rx Instructions: DIRECTED pregabalin [Lyrica] 100 mg capsule 100 mg PO BID Qty: 60 5RF (DME) lancets [Accu-Chek Fastclix Lancet Drum] Misc See Rx Instructions .Route Qty: 200 3RF Rx Instructions: As directed diclofenac sodium 75 mg tablet,delayed release (DR/EC) 75 mg PO Q12H PRN (Reason: pain) Qty: 20 0RF metformin 500 mg tablet 500 mg PO BID Advair Diskus 250-50 mcg/dose blister with device 1 inh inhalation BID cetirizine 10 mg tablet 10 mg PO DAILY PRN (Reason: Allergic Symptoms) atorvastatin 10 mg tablet 10 mg PO DAILY ondansetron HCl 8 mg tablet 8 mg PO Q8H PRN (Reason: Nausea) pantoprazole 40 mg tablet,delayed release (DR/EC) 40 mg PO BID montelukast 10 mg tablet 10 mg PO BEDTIME BD Alcohol Swabs Pads, Medicated 1 pad topical BID Ventolin HFA 90 mcg/actuation HFA aerosol inhaler 2 puff inhalation Q4H PRN (Reason: Shortness Of Breath Or Wheezing) Lantus Solostar U-100 Insulin 100 unit/mL (3 mL) insulin pen 10 unit SUBCUT QPM Farxiga 5 mg tablet 5 mg PO DAILY Trulicity 0.75 mg/0.5 mL pen injector 0.75 mg SUBCUT Q7D Rx Instructions: ON FRIDAY Discharge Orders: Discharge ED (Routine); Ordered 10/13/23 Ordered By: Marialuisa Saravia Referrals: Merlyn,Todd W, DO [Primary Care Provider] - 1-3 days Discharge Diet: Advance as tolerated Discharge Activity: Resume usual activity Patient Instructions: Abdominal Pain (ED) Activity Restrictions/Additional Instructions: Thank you for choosing [facility] for your healthcare needs today. Please realize this is an emergency room and that we are providing you with a medical screening exam and this may not be complete and all inclusive of all the testing and or work up that you may need to determine your ailment or severity of your illness. You have been screened and evaluated and felt safe for discharge. Health conditions do change or evolve sometimes and as such it is important that you follow up with your Primary Doctor to be re checked, 3-5 days is a general good time frame for follow up. You are always welcome to return to the ED for re assessment if your symptoms are worsening or you have new concerns Coding Level of Care Code ED Fur Blowing Machine Attendant for Louise Amaro
[2023-10-13 10:52] LABS: Basophils # 0.2 10^3/uL (0.0-0.1); Basophils % 1.3 %; Eosinophils # 0.8 10^3/uL (0.0-0.8); Eosinophils % 6.3 %; Hematocrit 46.7 % (36-47); Lymphocytes # 2.1 10^3/uL (0.8-4.8); Lymphocytes % 17.3 %; Mean Corpuscular HGB Conc 31.7 g/dL (30-55); Mean Corpuscular Hemoglobin 25.1 pg (27-33); Mean Corpuscular Volume 79.2 fl (85-98); Mean Platelet Volume 9.7 fL (7.4-10.4); Monocytes # 0.6 10^3/uL (0.2-0.9); Monocytes % 4.8 %; Neutrophils # 8.35 10^3/uL (1.8-7.7); Nucleated Red Blood Cells % 0 %; Platelet Count 323 10^3/cmm (157-399); Red Cell Distribution Width 16.8 % (12.1-15.1); White Blood Count 11.91 10^3/uL (3.29-11.43)
[2023-10-13] MEDS: lidocaine 2% viscous 15 ML, aluminum-mag hydrox-simethicon 30 ML, sucralfate oral liq 1 GM PO (10:56)
[2023-10-13] MEDS: famotidine 20 mg/2 mL INJ 40 MG IVP (10:58)
--- NOTE | 2023-10-13 10:58 | PC.PHAR ---
PT STATES DICLOFENAC SODIUM 75MG WORKS REALLY WELL AND WOULD LIKE TO HAVE MORE, PLEASE.
[2023-10-13 11:14] LABS: Troponin(5th) Baseline 8 ng/L (0-10)
[2023-10-13 11:15] LABS: Alanine Aminotransferase 17 U/L (0-33); Albumin Level 3.8 g/dL (3.5-5.2); Alkaline Phosphatase 89 U/L (35-105); Aspartate Amino Transferase 14 U/L (0-32); Blood Urea Nitrogen 9 mg/dL (6-20); C Reactive Protein 20.2 mg/L (0.0-4.9); Calcium 9.5 mg/dL (8.5-10.5); Carbon Dioxide 26 mmol/L (22-29); Chloride 102 mmol/L (98-107); Creatinine Clr Calc Pharmacy 144.0071; Globulin 3.3 g/dL (1.3-4.6); Glomerular Filtration Rate 106.3 mL/min (90-130); Glucose 112 mg/dL (65-115); Lipase 24 U/L (13-60); Osmolality Calculated 289 mOsm/kg (285-295); Sodium 140 mmol/L (136-145); Total Bilirubin 0.3 mg/dL (0.15-1.2); Total Protein 7.1 g/dL (6.6-8.7)
[2023-10-13 11:16] VITALS: BP 152/91; PULSE 84; O2SAT 93
[2023-10-13 11:24] LABS: Protein Urine Neg (Negative); Specific Gravity, Urine 1.005 (1.005-1.030); Urine Appearance Clear (CLEAR); Urine Color Yellow (Yellow); pH Urine 6.5 (5-7)
[2023-10-13 11:25] LABS: Bilirubin Urine Neg (Negative); Blood Urine Neg (Negative); Glucose Urine UA 4+ (Normal); Ketones Urine Negative (Negative); Leukocyte Esterase Urine Negative (Negative); Nitrate Urine Negative (Negative); Urobilinogen Urine Neg (Negative)
[2023-10-13 11:26] LABS: Add Urine Culture? No; Bacteria Urine TRACE /hpf; Squamous Epithelial Cell Urine 0-4 /hpf (0-5); WBC Urine RARE /hpf (0-5)
--- NOTE | 2023-10-13 11:38 | ECG_ITS ---
[facility] Test Date: 2023-10-13 Pat Name: Jennifer Dumont Department: Room: Gender: Female Mica Plate Layer: : 1975 Requested By: Marialuisa Byrne Order Number: [id number] Vick MD: Ho Jordan M.D. Measurements Intervals [place] Rate: 72 P: 49 MA: 174 QRS: 53 QRSD: 92 T: 39 QT: 380 QTc: 418 Interpretive Statements SINUS RHYTHM LOW QRS VOLTAGE IN PRECORDIAL LEADS [QRS DEFLECTION < 1.0 mV IN CHEST LEADS] Compared to ECG 10/13/2023 09:33:48 Sinus arrhythmia no longer present Electronically Signed On 10-13-2023 14:51:04 CDT by Ho Jordan M.D. [id number]
[2023-10-13] MEDS: HYDROcodone-acetaminophen 10-325 mg Tablet 1 TAB PO (12:15)
[2023-10-13 12:16] VITALS: BP 112/92; PULSE 82; O2SAT 92
[2023-10-13 12:37] VITALS: BP 112/92; PULSE 82; RESP 16; TEMP 36.7; O2SAT 92
[2023-10-13 12:38] LABS: Troponin 5 2HR 6.36 ng/L (0-10)
[2023-10-13 12:45] LABS: Troponin 5 2HR Delta -1.64 ABS# (0-10)
== END 2023-10-13 12:40 | disposition home or self-care (01) ==
PROVIDERS: Emergency Provider Emergency Medicine; PCP Family Medicine
DX: R07.89 Other chest pain (principal); R10.9 Unspecified abdominal pain; E11.9 Type 2 diabetes mellitus without complications; J44.9 Chronic obstructive pulmonary disease, unspecified; I10 Essential (primary) hypertension; F17.210 Nicotine dependence, cigarettes, uncomplicated; Z79.4 Long term (current) use of insulin; Z79.84 Long term (current) use of oral hypoglycemic drugs; Z79.85 Long-term (current) use of injectable non-insulin antidiabetic drugs
CPT/HCPCS: 36415; 80053; 81001; 83690; 84484; 85025; 86140; 93005; 96374; 99285; J3490

== ENCOUNTER 2023-12-08 08:39 | Outpatient (CLI) | payer MEDICAID, SELFPAY ==
--- NOTE | 2023-12-08 08:42 | MR_ITS ---
WS: [id number] MRI LEFT SHOULDER NONCONTRAST TECHNIQUE: Sagittal T2, coronal T1, T2 and proton density imaging. Axial gradient PDE imaging. CLINICAL INFORMATION: OTHER SPECIFIC ARTHROPATHIES COMPARISON: None. FINDINGS: Moderate degenerative arthritis AC joint with fluid and edema. Slight subacromial spurring. Mild narr owing of the subacromial space with slight impingement on the distal supraspinatus. Calcific tendinit is distal supraspinatus with chronic thinning. Tendinopathy distal infraspinatus and supraspinatus. T iny undersurface tear supraspinatus and tiny insertional tear distal infraspinatus. No tendon retract ion. Normal teres minor. Biceps tendon is somewhat diminutive but appears intact within the bicipital groo ve. Subscapularis tendon appears intact. Degenerative narrowing of the glenohumeral articulation. Nor mal bone marrow signal in the humerus and glenoid. MR/MR shoulder LT wo con* [id number] IMPRESSION: 1. Tendinopathy distal infraspinatus and supraspinatus with a small undersurfa ce tear distal supraspinatus and small insertional tear infraspinatus. No tendo n retraction. 2. Evidence of calcific tendinitis distal supraspinatus. 3. Rotator cuff is otherwise intact. 4. Biceps tendon is somewhat diminutive but appears intact within the bicipita l groove. 5. Moderate degenerative narrowing of the AC joint with a small amount of flui d and edema. Slight subacromial spurring.
== END 2023-12-08 08:40 | disposition home or self-care (01) ==
LOC: RAD 08:40
PROVIDERS: PCP Family Medicine; Visit Provider Family Medicine
DX: M19.012 Primary osteoarthritis, left shoulder (principal); M75.92 Shoulder lesion, unspecified, left shoulder; M75.32 Calcific tendinitis of left shoulder
CPT/HCPCS: 73221

== ENCOUNTER 2024-04-13 07:46 | Emergency (ER) | payer MEDICAID, SELFPAY ==
[2024-04-13] VITALS (17 sets, daily range): BP systolic 137–179; BP diastolic 96–106; PULSE 70–83; RESP 10–24; TEMP 37.2; O2SAT 91–96; BMI 46.0
--- NOTE | 2024-04-13 07:52 | ECG_ITS ---
[facility] Date: 2024-04-13 Pat Name: Jennifer Dumont Department: Room: Gender: Female Devil Tender: : 1975 Requested By: Noé Byrne Order Number: [id number] Nicanor MD: True Turner M.D. Measurements Intervals [place] Rate: 82 P: 79 TN: 158 QRS: 94 QRSD: 94 T: 84 QT: 392 QTc: 461 Interpretive Statements SINUS RHYTHM BORDERLINE RIGHT AXIS DEVIATION [QRS AXIS > 90] Compared to ECG 10/13/2023 11:38:57 No significant changes Electronically Signed On 04-13-2024 21:34:31 WATER SOFTENER SERVICE SUPERVISOR by True Turner M.D. [id number]
--- NOTE | 2024-04-13 07:52 | XR_ITS ---
WS: [id number] PORTABLE CHEST HISTORY: dyspnea/cough COMPARISON: 10/05/2019 Lungs are clear and well expanded. No pleural effusion or pneumothorax. Cardiac size: Normal. Mediastinum/Aorta: Normal mediastinum. No osseous abnormality seen. XR/XR chest 1V portable [id number] IMPRESSION: Unremarkable portable chest.
[2024-04-13] MEDS: aspirin 81 mg Chew Tablet 324 MG PO (08:17)
--- NOTE | 2024-04-13 08:21 | ED_ITS ---
HPI - Chest Pain 2 General: Chief Complaint: Chest Pain Stated Complaint: chest pain,sob, high b/p Time Seen by Provider: 04/13/24 07:51 History of Present Illness: 48-year-old female presents emergency ro om planing of chest pain and elevated blood pressure. The last couple weeks she has had pain in her back at times radiating around her sides overnight she had some chest pain with it as well. No nausea no vomiting she has not noticed anything that exacerbates or relieves it. She has no chest. At this time. No known history of coronary disease patient does smoke and is diabetic. Associated symptoms: Reports dyspnea; Deny abdominal pain or fever(s) Related Data Home Medications Medication Instructions Recorded Confirmed insulin glargine 100 unit/mL (3 10 unit SUBCUT QPM 10/13/23 04/13/24 mL) subcutaneous pen (Lantus Solostar U-100 Insulin) montelukast 10 mg tablet 10 mg PO BEDTIME 10/13/23 04/13/24 albuterol sulfate 90 mcg/actuation 2 puff inhalation Q4H PRN 04/13/24 04/13/24 aerosol inhaler (Ventolin HFA) Shortness Of Breath atorvastatin 10 mg tablet 10 mg PO DAILY 04/13/24 04/13/24 cetirizine 10 mg tablet 10 mg PO DAILY PRN Allergy Symptoms 04/13/24 04/13/24 dapagliflozin propanediol 5 mg 5 mg PO DAILY 04/13/24 04/13/24 tablet (Farxiga) fluticasone 250 mcg-salmeterol 50 1 inh inhalation BID 04/13/24 04/13/24 mcg/dose blistr powdr for inhalation (Advair Diskus) metformin 500 mg tablet 500 mg PO BID 04/13/24 04/13/24 pantoprazole 40 mg tablet,delayed 40 mg PO BID 04/13/24 04/13/24 release Previous Rx's Medication Instructions Recorded lancets (Accu-Chek Fastclix Lancet #200 ea 01/21/22 Drum) blood sugar diagnostic (OneTouch #100 strips 08/04/23 Verio test strips) lancets 33 gauge (OneTouch Delica #100 ea 08/04/23 Plus Lancet) pen needle, diabetic 31 gauge x #100 ea 08/18/23/16 (TechLITE Pen Needle) dulaglutide 0.75 mg/0.5 mL 0.75 mg (0.5 mL) SUBCUT Q7D #2 mL 01/09/24 subcutaneous pen injector (JaseShuropody) lisinopril 30 mg tablet 30 mg PO DAILY #90 tabs 01/30/24 pregabalin 100 mg capsule (Lyrica) 100 mg PO BID #60 caps 03/22/24 aspirin 81 mg tablet,delayed 81 mg PO DAILY #30 tabs 04/13/24 release isosorbide mononitrate 30 mg 30 mg PO DAILY #30 tabs 04/13/24 tablet,extended release 24 hr Allergies Allergy/AdvReac Type Severity Reaction Status Date / Time azithromycin Allergy ADR-Chest Verified 04/23/23 09:17 Pain prednisone Allergy ADR-Anxiety Verified 04/23/23 09:17 Review of Systems 2 Const: Denies: fever(s) or chills Card: Denies: chest pain Resp: Reports: dyspnea GI: Denies: abdominal pain : Denies: dysuria, urinary frequency or urinary urgency Musc: Reports: back pain; Denies: neck pain Skin/Breast: Denies: rash PFSH ED 2 PFSH: Medical History Non compliance w medication regimen Cellulitis of labia majora BMI 50.0-59.9, adult Diabetes mellitus, type II 0 Infected dental carries Nicotine dependence, cigarettes, with unspecified nicotine-induced disorders COPD (chronic obstructive pulmonary disease) Essential hypertension Chronic GERD Mass of adrenal gland Anxiety and depression Surgical History Hx of cholecystectomy Family History Father Lung disease Family/Other Diabetes Mother , secondary to MVA in 40s No problems noted. Denies family history of Colon cancer Ovarian cancer Breast cancer Hypertension Uterine cancer Thyroid disease Stroke Social History Smoking and tobacco/nicotine status: current every day tobacco/nicotine user cigarettes Packs smoked per day: 0.5 Second hand smoke exposure: No Alcohol intake: never Substance/Drug Use: current Substance/Drug use frequency: few times a week Other substance/drug use details: About once a week. Female Reproductive History: Spontaneous abortions: No Physical Exam 2 Const: COMMON NORMALS: no acute distress GENERAL APPEARANCE: cooperative and comfortable ORIENTATION/CONSCIOUSNESS: Yes awake, Yes oriented to person, Yes oriented to place and Yes oriented to time HENMT: COMMON NORMALS: normocephalic, atraumatic and hearing grossly normal bilaterally HEAD & SCALP: normocephalic and atraumatic Resp: COMMON NORMALS: normal respiratory effort, No retractions, No use of accessory muscles and clear to auscultation bilaterally AUSCULTATION: clear to auscultation bilaterally Cardio: COMMON NORMALS: regular rate, regular rhythm and No murmurs present (Cardio) RATE: regular rate RHYTHM: regular rhythm GI: COMMON NORMALS: Soft to palpation and No hepatosplenomegaly present A USCULTATION: Yes normoactive bowel sounds PALPATION: Yes Soft to palpation, No Tenderness to palpation present (GI), No Guarding due to palpation present (GI) and Yes No hepatosplenomegaly present Extremity: COMMON NORMALS: normal to inspection, capillary refill normal, no clubbing, cyanosis or edema, no calf tenderness and no pedal edema Neuro: SENSORIUM/ORIENTATION: Yes oriented to person, Yes oriented to place and Yes oriented to time Skin: COMMON NORMALS: no rashes or lesions noted GENERAL SKIN EXAM: no rashes or lesions noted Course 2 Vital Signs: Vital signs: Vital Signs Temperature 99.0 F 04/13/24 07:56 Pulse Rate 72 04/13/24 11:36 Respiratory Rate 15 04/13/24 10:45 Blood Pressure 156/103 04/13/24 11:36 Pulse Oximetry 94 04/13/24 11:36 Oxygen Delivery Me thod Room Air 04/13/24 07:56 MDM - Chest Pain Medical Decision Making EKGs recurred on the chart. Cardiac enzymes negative. No further chest pain at this time. Will discharge patient home set up outpatient cardiac sestamibi stress test. [id number] Tylenol or Profen needed for the back pain. Add aspirin and isosorbide mononitrate. Return if has worsening chest pain Lab Data 04/13/24 08:34 04/13/24 08:34 Radiology Impressions Chest X-Ray 04/13/24 07:52 IMPRESSION: Unremarkable portable chest. Laboratory Results WBC 11.73 10^3/uL (3.29-11.43) H 04/13/24 08:34 RBC 5.54 10^6/uL (3.85-5.65) 04/13/24 08:34 Hgb 14.50 g/dL (11.27-16.99) 04/13/24 08:34 Hct 46.3 % (36-47) 04/13/24 08:34 MCV 83.6 fl (85-98) L 04/13/24 08:34 MCH 26.2 pg (27-33) L 04/13/24 08:34 MCHC 31.3 g/dL (30-55) 04/13/24 08:34 RDW 15.3 % (12.1-15.1) H 04/13/24 08:34 Plt Count 282 10^3/cmm (157-399) 04/13/24 08:34 MPV 9.3 fL (7.4-10.4) 04/13/24 08:34 Neut % (Auto) 65.0 % 04/13/24 08:34 Lymph % (Auto) 20.0 % 04/13/24 08:34 [place] % (Auto) 5.0 % 04/13/24 08:34 Eos % (Auto) 8.0 % 04/13/24 08:34 Baso % (Auto) 1.7 % 04/13/24 08:34 Neut # (Auto) 7.61 10^3/uL (1.8-7.7) 04/13/24 08:34 Lymph # (Auto) 2.4 10^3/uL (0.8-4.8) 04/13/24 08:34 [place] # (Auto) 0.6 10^3/uL (0.2-0.9) 04/13/24 08:34 Eos # (Auto) 0.9 10^3/uL (0.0-0.8) H 04/13/24 08:34 Baso # (Auto) 0.2 10^3/uL (0.0-0.1) H 04/13/24 08:34 Nucleated RBC % (auto) 0 % 04/13/24 08:34 Nucleated RBCs # 0.0 /100WBC 04/13/24 08:34 Sodium 138 mmol/L (136-145) 04/13/24 08:34 Potassium 4.0 mmol/L (3.5-5.1) 04/13/24 08:34 Chloride 101 mmol/L (98-107) 04/13/24 08:34 Carbon Dioxide 24 mmol/L (22-29) 04/13/24 08:34 Anion Gap 17.0 (5-19) 04/13/24 08:34 BUN 11 mg/dL (6-20) 04/13/24 08:34 Creatinine 0.7 mg/dL (0.5-0.9) 04/13/24 08:34 GFR Calculation 88.6 mL/min (90-130) L 04/13/24 08:34 Glucose 193 mg/dL (65-115) H 04/13/24 08:34 Calculated Osmolality 291 mOsm/kg (285-295) 04/13/24 08:34 Calcium 8.7 mg/dL (8.5-10.5) 04/13/24 08:34 Total Bilirubin 0.2 mg/dL (0.15-1.2) 04/13/24 08:34 AST 12 U/L (0-32) 04/13/24 08:34 ALT 15 U/L (0-33) 04/13/24 08:34 Alkaline Phosphatase 87 U/L (35-105) 04/13/24 08:34 Troponin T Baseline 8 ng/L (0-10) 04/13/24 08:34 Troponin T 120 Minute 6.89 ng/L (0-10) 04/13/24 10:33 Delta Troponin T -1.11 ABS# (0-10) L 04/13/24 10:33 Total Protein 6.5 g/dL (6.6-8.7) L 04/13/24 08:34 Albumin 3.6 g/dL (3.5-5.2) 04/13/24 08:34 Globulin 2.9 g/dL (1.3-4.6) 04/13/24 08:34 All radiology interpretation(s) finalized by discharge EKG Data EKG 1: Interpretation: EKG shows a rate of 82 normal sinus rhythm no acute ST changes noted SD interval 0.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 Diabetes mellitus complication status: without complication Qualified Code(s): E11.9 - Type 2 diabetes mellitus without complications Clinical Impression: (Ruled Out): Restless leg syndrome Condition: Stable Prescriptions: New aspirin 81 mg tablet,delayed release (DR/EC) 81 mg PO DAILY Qty: 30 0RF isosorbide mononitrate 30 mg tablet extended release 24 hr 30 mg PO DAILY Qty: 30 0RF No Action (DME) OneTouch Verio test strips Strip See Rx Instructions .ROUTE .COMPLEX Qty: 100 1RF Dose Instruction: CHECK SUGARS TWICE DAILY Rx Instructions: CHECK SUGARS TWICE DAILY (DME) lancets [OneTouch Delica Plus Lancet] 33 gauge misc See Rx Instructions .ROUTE .COMPLEX Qty: 100 1RF Dose Instruction: CHECK SUGARS TWICE DAILY Rx Instructions: CHECK SUGARS TWICE DAILY (DME) pen needle, diabetic [TechLITE Pen Needle] 31 gauge x 3/16 needle See Rx Instructions .ROUTE .COMPLEX Qty: 100 4RF Dose Instruction: DIRECTED Rx Instructions: DIRECTED Trulicity 0.75 mg/0.5 mL pen injector 0.75 mg SUBCUT Q7D Qty: 2 0RF Rx Instructions: ON FRIDAY lisinopril 30 mg tablet 30 mg PO DAILY Qty: 90 0RF pregabalin [Lyrica] 100 mg capsule 100 mg PO BID Qty: 60 1RF (DME) lancets [Accu-Chek Fastclix Lancet Drum] Misc See Rx Instructions .Route Qty: 200 3RF Rx Instructions: As directed metformin 500 mg tablet 500 mg PO BID fluticasone propion-salmeterol [Advair Diskus] 250-50 mcg/dose blister with device 1 inh inhalation BID cetirizine 10 mg tablet 10 mg PO DAILY PRN (Reason: Allergy Symptoms) atorvastatin 10 mg tablet 10 mg PO DAILY pantoprazole 40 mg tablet,delayed release (DR/EC) 40 mg PO BID albuterol sulfate [Ventolin HFA] 90 mcg/actuation HFA aerosol inhaler 2 puff inhalation Q4H PRN (Reason: Shortness Of Breath) dapagliflozin propanediol [Farxiga] 5 mg tablet 5 mg PO DAILY montelukast 10 mg tablet 10 mg PO BEDTIME insulin glargine [Lantus Solostar U-100 Insulin] 100 unit/mL (3 mL) insulin pen 10 unit SUBCUT QPM Discharge Orders: Discharge ED (Routine); Ordered 04/13/24 Ordered By: Noé Moody Referrals: Todd Zuleta DO [Primary Care Provider] - Discharge Diet: Usual diet Discharge Activity: Increase activity as tolerated Patient Instructions: Opioid Safety, Pain Management Activity Restrictions/Additional Instructions: Thank you for choosing [facility] for your healthcare needs today. It is very important that you follow up as instructed or that you return to the Emergency Department should you have concerns or if your condition changes or worsens in any way. You were seen in the emergency room for intermittent episodes of chest pain your cardiac enzymes and EKG were negative. Will discharge home on isosorbide mononitrate 30 mg once daily as well as a baby aspirin daily and set you up for outpatient Lexiscan sestamibi stress test. If you have recurrent symptoms return to the emergency room Coding Level of Care Code ED Risk Assessment Consultant for Louise Amaro
[2024-04-13 08:42] LABS: Basophils # 0.2 10^3/uL (0.0-0.1); Basophils % 1.7 %; Eosinophils # 0.9 10^3/uL (0.0-0.8); Hematocrit 46.3 % (36-47); Lymphocytes # 2.4 10^3/uL (0.8-4.8); Mean Corpuscular HGB Conc 31.3 g/dL (30-55); Mean Corpuscular Hemoglobin 26.2 pg (27-33); Mean Corpuscular Volume 83.6 fl (85-98); Mean Platelet Volume 9.3 fL (7.4-10.4); Monocytes # 0.6 10^3/uL (0.2-0.9); Neutrophils # 7.61 10^3/uL (1.8-7.7); Nucleated Red Blood Cells % 0 %; Platelet Count 282 10^3/cmm (157-399); Red Blood Count 5.54 10^6/uL (3.85-5.65); Red Cell Distribution Width 15.3 % (12.1-15.1); White Blood Count 11.73 10^3/uL (3.29-11.43)
[2024-04-13 09:02] LABS: Alanine Aminotransferase 15 U/L (0-33); Albumin Level 3.6 g/dL (3.5-5.2); Alkaline Phosphatase 87 U/L (35-105); Aspartate Amino Transferase 12 U/L (0-32); Blood Urea Nitrogen 11 mg/dL (6-20); Calcium 8.7 mg/dL (8.5-10.5); Carbon Dioxide 24 mmol/L (22-29); Chloride 101 mmol/L (98-107); Creatinine Clr Calc Pharmacy 119.3242; Globulin 2.9 g/dL (1.3-4.6); Glomerular Filtration Rate 88.6 mL/min (90-130); Glucose 193 mg/dL (65-115); Osmolality Calculated 291 mOsm/kg (285-295); Sodium 138 mmol/L (136-145); Total Bilirubin 0.2 mg/dL (0.15-1.2); Total Protein 6.5 g/dL (6.6-8.7)
[2024-04-13 09:04] LABS: Troponin(5th) Baseline 8 ng/L (0-10)
--- NOTE | 2024-04-13 09:28 | ECG_ITS ---
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 Measurements Intervals [place] Rate: 75 P: 64 MO: 169 QRS: 91 QRSD: 96 T: 75 QT: 408 QTc: 456 Interpretive Statements SINUS RHYTHM BORDERLINE RIGHT AXIS DEVIATION [QRS AXIS > 90] Compared to ECG 04/13/2024 07:57:22 No significant changes Electronically Signed On 04-13-2024 22:06:15 IT MANAGER by True Turner M.D. [email or web address]
[2024-04-13 10:59] LABS: Troponin 5 2HR 6.89 ng/L (0-10)
[2024-04-13 11:04] LABS: Troponin 5 2HR Delta -1.11 ABS# (0-10)
--- NOTE | 2024-04-19 07:07 | DCPLANNER ---
faxed outpatient lexiscan order to scheduling for er f/u
== END 2024-04-13 11:38 | disposition home or self-care (01) ==
PROVIDERS: Emergency Provider Family Medicine; PCP Family Medicine
DX: R07.89 Other chest pain (principal); E11.9 Type 2 diabetes mellitus without complications; J44.9 Chronic obstructive pulmonary disease, unspecified; F17.210 Nicotine dependence, cigarettes, uncomplicated; Z79.84 Long term (current) use of oral hypoglycemic drugs
CPT/HCPCS: 36415; 71045; 80053; 84484; 85025; 93005; 99285

== ENCOUNTER → 2024-04-27 15:04 | Outpatient (BNVA) | payer MEDICAID, SELFPAY | PROVIDERS: PCP Family Medicine; Visit Provider Family Medicine | DX: E11.9 Type 2 diabetes mellitus without complications; E11.42 Type 2 diabetes mellitus with diabetic polyneuropathy; Z79.4 Long term (current) use of insulin; I10 Essential (primary) hypertension; K21.9 Gastro-esophageal reflux disease without esophagitis; E78.2 Mixed hyperlipidemia | CPT/HCPCS: 80061; 82043; 82607; 83036; 84439; 84443 ==

== ENCOUNTER → 2024-07-27 09:41 | Outpatient (BNVA) | payer MEDICAID, SELFPAY | PROVIDERS: PCP Family Medicine; Visit Provider Family Medicine | DX: E11.9 Type 2 diabetes mellitus without complications (principal); Z79.4 Long term (current) use of insulin; K21.9 Gastro-esophageal reflux disease without esophagitis; R10.12 Left upper quadrant pain; G89.29 Other chronic pain; R11.0 Nausea | CPT/HCPCS: 82784; 83036; 83516; 83690 ==